=== PATIENT | female | born 1950 | race African-American/Black ===

== ENCOUNTER 2019-04-08 21:31 | Inpatient (IN) | payer OTHER ==
[~2019-04-08] VITALS: Ht 157.5 cm; Wt 144.2 kg
[2019-04-08 21:32] VITALS: BP 131/59
[2019-04-08 22:32] LABS: URINE BILIRUBIN NEGATIVE (Negative); URINE BLOOD 2+ (Negative); URINE CLARITY CLEAR; URINE COLOR YELLOW; URINE GLUCOSE-RANDOM* NEGATIVE (Negative); URINE KETONES NEGATIVE (Negative); URINE LEUKOCYTES-REFLEX NEGATIVE (Negative); URINE NITRITE-REFLEX NEGATIVE (Negative); URINE PROTEIN (DIPSTICK) 3+ (Negative); URINE SPECIFIC GRAVITY 1.025 (1.005-1.035); URINE UROBILINOGEN 0.2 E.U./dl (0.2-1.0)
[2019-04-08 22:37] LABS: ABSOLUTE NEUTROPHILS 5.7 thou/uL (1.4-8.2); BASOPHILS 0.3 % (0.0-2.0); HEMATOCRIT 28.3 % (37.0-47.0); HEMOGLOBIN 9.2 gm/dL (12.0-15.0); LYMPHOCYTES 14.5 % (24.0-44.0); MCH 28.2 pg (26.0-34.0); MCHC 32.6 g/dL (28.0-37.0); MCV 86.6 fL (80.0-100.0); MONOCYTES 7.2 % (1.0-8.0); PLATELET COUNT 228 thou/uL (150-400); RBC 3.26 mil/uL (4.20-5.00); RDW 19.1 % (10.5-14.5); WBC 7.5 thou/uL (4.0-11.0)
[2019-04-08 22:43] LABS: CALCIUM 8.4 mg/dL (8.5-10.1); CREATININE 1.4 mg/dL (0.6-1.0); POTASSIUM 3.8 mmol/L (3.5-5.1)
[2019-04-08 22:49] LABS: AMORPHOUS URATES Many /LPF (None Seen); BACTERIA-REFLEX None Seen /HPF (None Seen); CASTS None Seen /LPF (None Seen); CRYSTALS None Seen /LPF (None Seen); MUCUS 0-3 Light strn/LPF (None Seen); SQUAMOUS 4-10 Moderate /LPF (0-3); URINE RBC 3-10 Few /HPF (0-2); URINE WBC-REFLEX None Seen /HPF (0-5)
[2019-04-08 22:55] LABS: MAGNESIUM 1.9 mg/dL (1.8-2.4); TROPONIN-I 0.07 ng/mL (<0.06)
[2019-04-09] VITALS (7 sets, daily range): BP systolic 141–175; BP diastolic 56–106
[2019-04-09 00:03] LABS: INR 1.7; PROTIME 18.1 Seconds (9.3-11.4)
--- NOTE | 2019-04-09 03:13 | NUR ---
PT NEW ADMIT . ARRIVED ON UNIT ABOUT 0030. ALERT AND ORIENTED, BUT LETHARGIC IN COMPANY OF . PT UNABLE TO GIVE DETAILS OF WHICH MEDICATIONS SHE IS ON. REPORTS TO BE CURRENTLY LIVING AT A HOTEL WITH THE AND FEELS SAFE. C/O HEADACHE , TYLANOL X1 GIVEN. DENIES ANY PROBLEM WITH ACCESS TO MEDICATIONS. DENIES NAUSEA, VOMITNG OR DIARRHEA. NO CHEST PAIN. VOIDING PER THE EXTERNAL FEMALE CATHETER. PT CURRENTLY STABLE. WILL CONTINUE TO FOLLOW PLAN OF CARE.
[2019-04-09 04:23] LABS: INR 1.7; PROTIME 17.3 Seconds (9.3-11.4)
[2019-04-09 04:32] LABS: ANION GAP 4 mmol/L (7-16); BUN 23 mg/dL (7-18); CALCIUM 8.5 mg/dL (8.5-10.1); CHLORIDE 108 mmol/L (98-107); CHOLESTEROL 139 mg/dL (<200); CO2 32 mmol/L (21-32); CREATININE 1.3 mg/dL (0.6-1.0); GLUCOSE 135 mg/dL (74-106); HDL CHOLESTEROL 45 mg/dL (>40); LDL CHOLESTEROL 81 mg/dL (<100); POTASSIUM 3.9 mmol/L (3.5-5.1); SODIUM 144 mmol/L (136-145); TC:HDL 3.1 Ratio (Not establshd); TRIGLYCERIDE 66 mg/dL (<150); TROPONIN-I <0.06 ng/mL (<0.06); VLDL 13 mg/dL (<40)
[2019-04-09 04:34] LABS: SERUM ASSESSMENT Clear
--- NOTE | 2019-04-09 07:41 | EKG ---
[address] [place] [address] ELECTROCARDIOGRAM REPORT Name: CALEB DOVE Room #: 212-P ADM IN M.R.#: [id number] Admission: 04/08/19 Attend Phys: Vini Garcia MD Discharge: Date of : 52 Report #: [id number] THIS REPORT FOR: //name// [facility] ED Test Date: 2019-04-08 Test Time: 22:21:08 Pat Name: CALEB DOVE Department: Room: [facility] Gender: F Assistant To The Dean: PIPPA : 1950 Requested By: Bhavik Givens Order Number: [id number] MD: Addi Flanagan Measurements Intervals [place] Rate: 67 P: -43 UT: 257 QRS: -12 QRSD: 94 T: 48 QT: 406 QTc: 429 Interpretive Statements Sinus rhythm Prolonged UT interval Baseline wander in lead(s) V1 No previous ECG available for comparison Electronically Signed On 04-09-2019 7:41:09 CDT by Addi Flanagan [email or web address] <ELECTRONICALLY SIGNED> By: Addi Flanagan MD, [facility] 04/09/19 0741 20 20 Addi Flanagan MD, [facility] /EPI
--- NOTE | 2019-04-09 08:06 | NUR ---
RESTING QUIETLY, EASILY AWAKENED. DENIES DISCOMFORT. SR WITH FIRST DEGREE AV BLOCK. RUBEN LOWER EXTREMITIES VERY WEAK WITH PT BARELY ABLE TO LIFT KNEES OFF OF BED.
--- NOTE | 2019-04-09 10:43 | NUR ---
met with patient who is A/Ox4. She resides currently in hotel with spouse. Spouse cont to work and drive. patient resides in hotel for approx 3 weeks. She was living in [facility] but had steps to apt in which she could no longer tolerate. She reports her lease was up and now staying in hotel awaiting her section 8 to find ground floor apt which she anticipates will be soon. Patient has her home oxygen concentrator and CPAP at [facility]. Provider is [facility] at 3 liters. She was having loose stools and unable to get off commode. EMS called and patient fell with them assisting her off commode. She has a walker, cane and wc and uses walker in hotel. PCP Dr Barry Arguelles at [facility]. Patient reports she has been at [facility] in past and prefers to transition to [facility]. Plan to send therapy evals and request [facility] eval.
[2019-04-09] MEDS ORDERED: TRADJENTA5 MG PO (14:07)
[2019-04-09] MEDS ORDERED: LYRICA100 MG PO (14:07)
[2019-04-09] MEDS ORDERED: NORVASC 2.5 MG2.5 M1 PO (14:07)
[2019-04-09] MEDS ORDERED: TOPROL XL50 MG PO (14:08)
[2019-04-09] MEDS ORDERED: GLIPIZIDE 10 MG10 MG PO (14:08)
[2019-04-09] MEDS ORDERED: NORCO 5-325 TA1 EAC1 PO (14:09)
[2019-04-09] MEDS ORDERED: VOLTAREN GEL 1100 G1 TOP (14:09)
[2019-04-09] MEDS ORDERED: COLACE CLEAR50 MG PO (14:10)
[2019-04-09] MEDS ORDERED: LASIX 40 MG TAB40 MG PO (14:10)
[2019-04-09] MEDS ORDERED: COUMADIN 5 MG TA5 M1 PO (14:11)
[2019-04-09] MEDS ORDERED: LEVEMIR100 UNIT/2 SUBQ (14:11)
--- NOTE | 2019-04-09 15:16 | NUR ---
FAXED REFERRAL TO [facility] SPOKE WITH LEVAR IN ADM SHE RECEIVED REFERRAL AND WILL REVIEW. DP TO FOLLOW.
[2019-04-09] MEDS ORDERED: HYDRALAZINE 10M10 MG PO (15:25)
[2019-04-09] MEDS ORDERED: NYSTATIN 100,0015 G1 TOP (15:29)
[2019-04-09] MEDS ORDERED: TOLTERODINE TART4 MG PO (15:30)
--- NOTE | 2019-04-09 15:41 | NUR ---
[facility] accepting of patient at tn.
--- NOTE | 2019-04-09 16:45 | NUR ---
pt provided home health care by [facility]. contact is Alfreda Hale RN phone # [phone].
--- NOTE | 2019-04-09 18:25 | NUR ---
progressing today. sat on edge of bed x2 with OT, then with PT. sr, 3lit/nc, resp even and unlabored, tolerating diet, female wicking catheter effective. initially tylenol and neurontin given for nerve pain discomfort with minimal relief. hydrocodone administered for increasing discomfort. see assessments/mars for details.
--- NOTE | 2019-04-10 02:58 | NUR ---
PT EXTERNAL CATHETER BECAME DISLOGED AND PT INCON'T OF URINE BED CHANGED AND EXTERNAL CATHETER REPLACED, RT HELPED PT WITH CPAP MACHINE, PRN PAIN MEDS CONTROLLING PAIN, VSS, WILL CON'T TO MONITOR PER PTS PPOC.
[2019-04-10 03:33] VITALS: BP 161/75
[2019-04-10 07:11] LABS: GLYCOHEMOGLOBIN (HGB A1C) 5.9 % (4.8-5.6)
[2019-04-10 07:55] VITALS: BP 179/72
--- NOTE | 2019-04-10 10:54 | NUR ---
[facility] has accepted the pt and has a bed available if dc ready. Care team and pt updated. Possible dc to acute rehab today.
[2019-04-10 12:36] VITALS: BP 184/72
--- NOTE | 2019-04-10 14:39 | NUR ---
FAXED DC ORDERS/SUMMARY TO [facility] SPOKE WITH SHIVAM IN ADM SHE RECEIVED DC ORDERS AND [facility]. [facility] ONLY HAS A SEMI PVT RM AVAILABLE AND WILL TRANSITION PT TO A PVT RM ONCE AVAILABLE PT IS AWARE OF THIS AND SHE WILL NOTIFY HER FAMILY OF DC AND TIME OF TRANSPORT. UNIT NOTIFIED AND CHART COPY PER US. RN TO CALL REPORT TO [phone].
[2019-04-10 16:05] VITALS: BP 171/63
--- NOTE | 2019-04-10 18:52 | NUR ---
ASSUME CARE OF PT AT 1500. ASSESSMENT CHARTED. MEDS GIVEN PER MAR. CPAP USED AT BEDTIME. EXTERNAL FEMALE CATHETER IN PLACE. DC ORDERS COMPLETE. IV AND TELE DC'D. WAITING FOR [facility] STRETCH[facility]AN TO TRANSPORT TO FACILITY. WILL CONTINUE TO MONITOR AND FOLLOW POC.
== END 2019-04-10 19:35 | DRG 554 ==
LOC: ER 21:31 → 2N 23:50 → EROBS 23:50 → 2N 04-09 00:45
PROVIDERS: Emergency Medicine; Nurse Practitioner Family; ADMIT Hospitalist
PROC: 5A09357 Assistance with Respiratory Ventilation, Less than 24 Consecutive Hours, Continuous Positive Airway Pressure (ICD-10-PCS; principal; 2019-04-10)
DX: M19.90 Unspecified osteoarthritis, unspecified site (principal); N17.9 Acute kidney failure, unspecified; Z68.43 Body mass index [BMI] 50.0-59.9, adult; I48.91 Unspecified atrial fibrillation; G89.29 Other chronic pain; M79.669 Pain in unspecified lower leg; E78.5 Hyperlipidemia, unspecified; G47.33 Obstructive sleep apnea (adult) (pediatric); E66.01 Morbid (severe) obesity due to excess calories; J44.9 Chronic obstructive pulmonary disease, unspecified; I11.0 Hypertensive heart disease with heart failure; I50.9 Heart failure, unspecified; E11.42 Type 2 diabetes mellitus with diabetic polyneuropathy; R29.6 Repeated falls; E11.649 Type 2 diabetes mellitus with hypoglycemia without coma; Z82.49 Family history of ischemic heart disease and other diseases of the circulatory system; Z83.3 Family history of diabetes mellitus; Z88.8 Allergy status to other drugs, medicaments and biological substances; Z99.3 Dependence on wheelchair
CPT/HCPCS: 10081

== ENCOUNTER 2019-04-16 13:46 | Inpatient (IN) | payer OTHER ==
[~2019-04-16] VITALS: Ht 157.5 cm; Wt 137.1 kg
[2019-04-16 13:46] VITALS: BP 99/78
[~2019-04-16 13:46] MED LIST: COLACE CLEAR50 MG PO; COUMADIN 5 MG TA5 M1 PO; GLIPIZIDE 10 MG10 MG PO; HYDRALAZINE 10M10 MG PO; LASIX 40 MG TAB40 MG PO; LEVEMIR100 UNIT/2 SUBQ; LYRICA100 MG PO; NORCO 5-325 TA1 EAC1 PO; NORVASC 2.5 MG2.5 M1 PO; NYSTATIN 100,0015 G1 TOP; TOLTERODINE TART4 MG PO; TOPROL XL50 MG PO; TRADJENTA5 MG PO; VOLTAREN GEL 1100 G1 TOP
[2019-04-16 14:45] LABS: ABSOLUTE NEUTROPHILS 8.3 thou/uL (1.4-8.2); BASOPHILS 0.3 % (0.0-2.0); EOSINOPHILS 0.1 % (0.0-3.0); HEMATOCRIT 24.2 % (37.0-47.0); HEMOGLOBIN 7.8 gm/dL (12.0-15.0); LYMPHOCYTES 11.8 % (24.0-44.0); MCH 28.2 pg (26.0-34.0); MCHC 32.3 g/dL (28.0-37.0); MCV 87.5 fL (80.0-100.0); MONOCYTES 8.9 % (1.0-8.0); PLATELET COUNT 258 thou/uL (150-400); POLYS 78.9 % (36.0-66.0); RBC 2.76 mil/uL (4.20-5.00); RDW 18.4 % (10.5-14.5); WBC 10.5 thou/uL (4.0-11.0)
[2019-04-16 14:47] LABS: CREATININE 1.3 mg/dL (0.6-1.0); POTASSIUM 3.9 mmol/L (3.5-5.1)
[2019-04-16 14:59] LABS: APTT 64.1 Seconds (24.5-32.8); INR 2.5; PROTIME 26.4 Seconds (9.3-11.4)
[2019-04-16 15:36] LABS: ANISOCYTOSIS 1+; PLATELET ESTIMATE NORMAL
[2019-04-16 22:00] VITALS: BP 185/66
[2019-04-16 22:40] VITALS: BP 170/53
[2019-04-16 23:24] VITALS: BP 183/64
[2019-04-17] MEDS ORDERED: GLIPIZIDE 10 MG10 MG PO ×2 (01:25→02:36)
[2019-04-17] MEDS ORDERED: COZAAR 25 MG TA25 M1 PO (01:25)
[2019-04-17] MEDS ORDERED: LIDODERM1 EACH TRANSDERM (01:58)
[2019-04-17] MEDS ORDERED: DOCUSATE SODIU1 EACH PO (01:59)
[2019-04-17] MEDS ORDERED: HYDRALAZINE 2525 M1 PO (02:34)
[2019-04-17 02:35] LABS: HEMATOCRIT 19.5 % (37.0-47.0); HEMOGLOBIN 6.4 gm/dL (12.0-15.0)
[2019-04-17 03:48] VITALS: BP 171/54
[2019-04-17 04:02] VITALS: BP 162/68; BP 167/66
--- NOTE | 2019-04-17 05:53 | NUR ---
PT ARRIVED ON THE UNIT @2300 FROM ER. A&OX4 WITH C/O PAIN IN RT THIGH. PAIN MEDS GIVEN SEE EMAR. ON 3L OF O2. ADM DOCUMENTED AND PT ORIENTED TO THE ROOM. @0235 CRITICAL HGB OF 6.4 NOTIFIED ONCALL KETTLE ROOM HELPER AND ORDER PLACED FOR 1 UNIT OF BLOOD. CONSENT SIGNED AND PT INFORMED. HYDRALAZINE GIVEN FOR HIGH BP PER DR DO. FALL PREC IN PLACE AND WILL CONT TO MONITOR TILL EOS
[2019-04-17 06:55] LABS: HEMATOCRIT 21.8 % (37.0-47.0); HEMOGLOBIN 7.1 gm/dL (12.0-15.0)
[2019-04-17 07:06] LABS: INR 2.4; PROTIME 24.8 Seconds (9.3-11.4)
[2019-04-17 07:20] VITALS: BP 141/47
--- NOTE | 2019-04-17 16:03 | NUR ---
INITIAL ASSESSMENT: Pt evalulated for d/c planning needs. Reviewed chart and spoke with nurse an dpt. Pt is alert and oriented. Pt was hospitalized at [facility] and discharged to [facility] on 04/10/19. Prior to previous hospitalization, pt was living in [facility] with SO. Pt has walker, cane, w/c, CPAP and oxygen ([employer]) at home. Pt is hopeful to return to [facility] on d/c from hospital. Asked city planner to fax referral to [facility]. Will remain available to assist as needed,
--- NOTE | 2019-04-17 16:35 | NUR ---
FAXED REFERRAL TO [facility] SPOKE WITH LEVAR IN ADM SHE RECEIVED AND WILL REVIEW. 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 WAITING FOR NEW PT/OT NOTES WILL FAX TO [facility] ONCE AVAILABLE. DP TO FOLLOW.
[2019-04-17 21:03] VITALS: BP 147/53
--- NOTE | 2019-04-17 21:06 | NUR ---
PATIENT ALER AND ORIENTED AND RESTING COMFORTABLY. FAMILY AT BEDSIDE THIS AFTERNOON. PATIENT PAIN IN RIGHT THIGH MANAGED BY ORAL PAIN MED. PATIENT USES BEDPAN AND INDICATED SHE DIDN'T WANT TO GET UP TO BEDSIDE COMMODE DUE TO RIGHT LEG PAIN.
[2019-04-18 03:45] LABS: MCH 28.4 pg (26.0-34.0); MCHC 32.4 g/dL (28.0-37.0); MCV 87.7 fL (80.0-100.0); RBC 2.12 mil/uL (4.20-5.00); RDW 17.7 % (10.5-14.5); WBC 11.7 thou/uL (4.0-11.0)
[2019-04-18 03:51] LABS: CALCIUM 8.4 mg/dL (8.5-10.1); CREATININE 1.4 mg/dL (0.6-1.0); POTASSIUM 4.5 mmol/L (3.5-5.1)
[2019-04-18 04:26] LABS: HEMATOCRIT 18.6 % (37.0-47.0)
[2019-04-18 04:51] LABS: INR 1.6; PROTIME 17.1 Seconds (9.3-11.4)
--- NOTE | 2019-04-18 04:58 | NUR ---
ASSUMED CARE AROUND 1900. AXOX3. PERSISTENT PAIN ON R THIGH. MEDICATED PER MD ORDER. NOC TITRATING BIPAP, MANAGED BY RT. CRITICAL H&H REPORTED TO EGG PRODUCER UNDERWRITING TECHNICIAN FOR . EGG PRODUCER WILL ORDER 1 UNIT OF BLOOD. DENIES CHEST PAIN,SOA,CHILLS,NAUSEA,VOMITING. WILL CONT TO MONITOR FOR ANY CHANGES IN CONDITION.
[2019-04-18 05:22] VITALS: BP 140/53
[2019-04-18 05:37] LABS: % SATURATION 9 % (20-39); IRON 15 ug/dL (50-170); TIBC 172 ug/dL (250-450)
[2019-04-18 08:38] VITALS: BP 130/62; BP 132/52; BP 135/78
--- NOTE | 2019-04-18 12:47 | NUR ---
Nutrition: Assessed d/t BMI > 40 (55.3 kg/m2; morbid obesity, class III - high risk). Admit: R thigh hematoma. Nutrition education deferred at this time d/t pt condition. Per chart notes, having pain so severe contributing to severe debility, interfering w/ therapy. Noted to be wheelchair bound and renal mass concerning for CA. Wt loss education not deemed appropriate at this time. On a heart healthy diet and ate 100% of all 3 meals yesterday. Low nutrition risk at present.
[2019-04-18 13:54] LABS: HEMOGLOBIN 7.1 gm/dL (12.0-15.0)
--- NOTE | 2019-04-18 17:57 | NUR ---
ASSUMED CARE OF PT AT 0700. PT IS ON 4.0L OF O2. PT UNABLE TO AMBULATE BY HERSELF. BLOOD TRANSFUSION GIVEN AND 300L OF BLOOD TRANSFUSED AND VITAL SIGNS ASSESSED. BS CONTROL WITH INSULIN ON A SLIDING SCALE. HEMOGLOBIN REDRAWN AFTER BLOOD TRANSFUSION AND PT HAS A 7.0, NO NEED FOR ANOTHER TRANSFUSION AT THIS TIME. FALL PRECAUTIONS IN PLACE AND PT EDUCATED. BED IN LOWEST POSITION AND CALL LIGHT WITHIN REACH. WILL CONTINUE TO MONITOR THE PT.
[2019-04-18 19:20] VITALS: BP 140/59
--- NOTE | 2019-04-19 04:05 | NUR ---
PATIENT ALERT AND ORIENTED X 4. FAMILY AT BEDSIDE IN LATE EVENING. PATIENT C/O PAIN THIGH AREA. 3LNC WITH NO SOA NOTED AND PATIENT REMAINS ON BEDREST. WILL CONTINUE TO MONITOR.
[2019-04-19 04:45] VITALS: BP 134/52
[2019-04-19 06:08] LABS: HEMOGLOBIN 6.6 gm/dL (12.0-15.0)
[2019-04-19 06:10] LABS: HEMATOCRIT 20.1 % (37.0-47.0); MCH 28.5 pg (26.0-34.0); MCHC 32.7 g/dL (28.0-37.0); MCV 87.2 fL (80.0-100.0); RBC 2.31 mil/uL (4.20-5.00); RDW 18.3 % (10.5-14.5)
[2019-04-19 06:12] LABS: CALCIUM 8.5 mg/dL (8.5-10.1); CREATININE 1.5 mg/dL (0.6-1.0); POTASSIUM 4.6 mmol/L (3.5-5.1)
[2019-04-19 06:15] LABS: PROTIME 10.9 Seconds (9.3-11.4)
[2019-04-19 08:00] VITALS: BP 167/63
--- NOTE | 2019-04-19 09:58 | NUR ---
PT REPORTS GETTING A 3RD TRANSFUSION TODAY. PT VERY DISCOURAGED ABOUT THE LEVEL OF PAIN IN HER RIGHT LEG, WHICH SHE REPORTS IS MOVING CLOSER TOWARDS HIP. PT STATED SHE IS UNABLE TO GET UP AGAIN FOR OT EVAL. OT WILL RETURN 04/21/19
[2019-04-19 10:46] VITALS: BP 140/67; BP 153/53
[2019-04-19 16:29] VITALS: BP 139/58
[2019-04-19 17:00] LABS: HEMATOCRIT 21.6 % (37.0-47.0)
--- NOTE | 2019-04-19 18:00 | NUR ---
Assumed care of pt at 0700. Pt has epidose of confusion in am possibly due to dilaudid. Provider aware. Pt hg 6.6 with am labs. Provider notified. 1 unit blood ordered and administered. H&H ordered after blood is infused. Awaiting results. Pain controlled with prn pain meds. Q2h reposition. Pt uses bedpan. Able to roll on her side. 3L O2. Call light within reach.
[2019-04-19 19:36] VITALS: BP 136/50
[2019-04-20 02:20] VITALS: BP 137/57
--- NOTE | 2019-04-20 03:10 | NUR ---
PATIENT ALERT AND ORIENTED X4. REMAINS ON BEDREST AND USING BEDPAN. BS MONITORED PER ORDER. MEDICATED FOR LOW GRADE TEMP OF 99.5 WHICH DECREASED TO 98.9. GIVEN VICODIN FOR PAIN WITH GOOD RESULTS. USING BIPAP DURING THE NIGHT. RESTING QUIETLY. WILL MONITOR.
--- NOTE | 2019-04-20 03:13 | NUR ---
URINE SAMPLE SENT TO LAB DURING THE NGIHT.
[2019-04-20 06:20] LABS: HEMATOCRIT 20.6 % (37.0-47.0); HEMOGLOBIN 6.8 gm/dL (12.0-15.0)
--- NOTE | 2019-04-20 06:20 | NUR ---
PATIENT SLOW TO AWAKEN THIS AM FOR MORNING MEDS. THIS NURSE TOOK HER OFF OF THE BIPAP PER HER REQUEST. BLOOD SUGAR TAKEN (88) AT 0515. PATIENT DENIED PAIN AND REFUSED MEDICATION STATING "DO YOU JUST WANT ME TO HAVE SOME PAIN?". THIS NURSE EXPLAINED THAT SHE DID NOT WANT THE PATIENT TO FALL IN "THE CRACK" OF SHIFT CHANGE WHEN THERE COULD BE A DELAY OF ADMINISTERING PAIN MEDS. PLACED ON BEDPAN WITH CALL LIGHT IN REACH.
[2019-04-20 06:57] LABS: PROTIME 10.3 Seconds (9.3-11.4)
[2019-04-20 09:08] VITALS: BP 148/55
[2019-04-20 12:26] VITALS: BP 124/57; BP 136/55
--- NOTE | 2019-04-20 14:50 | NUR ---
PT ALERT AND ORIENTED TIMES FOUR. VSS, 97%2L. PT C/O LEG PAIN PRN MEDICATIONS GIVEN WITH GOOD RELEIF. ONE UNIT OF BLOOD GIVEN WITH NO ISSUES. PT TOLERATES MEDS AND MEALS. PT FAMILY AT BEDSIDE. PT SLOWLY PROGRESSING [facility] P[facility] GOALS.
[2019-04-20 16:36] LABS: ABSOLUTE NEUTROPHILS 8.1 thou/uL (1.4-8.2); BASOPHILS 0.5 % (0.0-2.0); EOSINOPHILS 1.7 % (0.0-3.0); HEMATOCRIT 23.4 % (37.0-47.0); HEMOGLOBIN 7.9 gm/dL (12.0-15.0); LYMPHOCYTES 10.9 % (24.0-44.0); MCH 29.5 pg (26.0-34.0); MCHC 33.7 g/dL (28.0-37.0); MCV 87.5 fL (80.0-100.0); MONOCYTES 10.1 % (1.0-8.0); PLATELET COUNT 229 thou/uL (150-400); POLYS 76.8 % (36.0-66.0); RBC 2.67 mil/uL (4.20-5.00); RDW 17.4 % (10.5-14.5); WBC 10.5 thou/uL (4.0-11.0)
[2019-04-20 16:54] LABS: ALBUMIN 1.8 g/dL (3.4-5.0); CALCIUM 8.7 mg/dL (8.5-10.1); CREATININE 1.5 mg/dL (0.6-1.0); MAGNESIUM 2.3 mg/dL (1.8-2.4); POTASSIUM 4.6 mmol/L (3.5-5.1); TOTAL BILIRUBIN 0.5 mg/dL (<0.1-1.0); TOTAL PROTEIN 6.6 g/dL (6.4-8.2)
[2019-04-20 16:56] LABS: URIC ACID* 8.9 mg/dL (2.6-7.2)
[2019-04-20 18:42] VITALS: BP 123/63
[2019-04-20 21:04] VITALS: BP 130/58
--- NOTE | 2019-04-21 00:30 | NUR ---
PATIENTS CALLED OUT FOR THE NURSE AT APPROX. 2250. THIS NURSE FOUND PATIENT CONFUSED - BS 74 AND 02SAT 86 ON 3LNC. CONTACTED PASTE UP WORKER (NATHAN) AND RECEIVED ORDER FOR STAT CT OF THE HEAD. PATIENT TAKEN DOWN AND RECEIVED CT AT 2325 WITH RETURN TO THE FLOOR AT 2335. NIGHT SUPV. (LORNE) RECEIVED ORDER FROM PASTE UP WORKER FOR NARCAN IV DUE TO CONTINUED CONFUSION. THIS WAS GIVEN X2 AND PATIENT IS ALERT AND ORIENTED AT THIS TIME. RT PUT PATIENT ON BIPAP AND REQUESTED HER HOME MACHINE BE USED AND IS ON IT AT THIS TIME. RESTING QUIETLY. WILL MONITOR.
[2019-04-21 01:49] LABS: URINE BILIRUBIN NEGATIVE (Negative); URINE BLOOD TRACE (Negative); URINE CLARITY CLEAR; URINE COLOR YELLOW; URINE GLUCOSE-RANDOM* NEGATIVE (Negative); URINE KETONES NEGATIVE (Negative); URINE LEUKOCYTES NEGATIVE (Negative); URINE NITRITE NEGATIVE (Negative); URINE PROTEIN (DIPSTICK) 2+ (Negative); URINE SPECIFIC GRAVITY 1.025 (1.005-1.035); URINE UROBILINOGEN 0.2 E.U./dl (0.2-1.0)
[2019-04-21 02:00] LABS: CASTS None Seen /LPF (None Seen); MUCUS 0-3 Light strn/LPF (None Seen); SQUAMOUS 0-3 Few /LPF (0-3); URINE WBC None Seen /HPF (0-5)
[2019-04-21 02:01] LABS: BACTERIA 1-9 Few /HPF (None Seen); CRYSTALS None Seen /LPF (None Seen); URINE RBC 0-2 Rare /HPF (0-2)
--- NOTE | 2019-04-21 04:27 | NUR ---
RT CHANGED PATIENT FROM HOSPITAL BIPAP TO HER HOME BIPAP AND SHE IS SATING AT 93-96%. NO FURTHER EPISODES OF CONFUSION. URINE SAMPLE SENT TO LAB. FAX OF RESULTS FROM CT OF HEAD ON CHART AND RESULTS CALLED TO WEAVING INSTRUCTOR. WILL MONITOR.
[2019-04-21 05:44] VITALS: BP 142/60
[2019-04-21 06:52] LABS: PROTIME 9.5 Seconds (9.3-11.4)
[2019-04-21 07:03] VITALS: BP 133/55
[2019-04-21 15:31] LABS: HEMATOCRIT 24.7 % (37.0-47.0); MCH 28.7 pg (26.0-34.0); MCHC 32.5 g/dL (28.0-37.0); MCV 88.3 fL (80.0-100.0); RBC 2.8 mil/uL (4.20-5.00); RDW 17.5 % (10.5-14.5); WBC 9.7 thou/uL (4.0-11.0)
[2019-04-21 15:49] LABS: CALCIUM 9.3 mg/dL (8.5-10.1); CREATININE 1.3 mg/dL (0.6-1.0); POTASSIUM 4.5 mmol/L (3.5-5.1)
--- NOTE | 2019-04-21 17:29 | NUR ---
PT ASSESSED AT START OF SHIFT. TURNED Q2HRS W/ ASSIST. PT MOVES FAIRLY WELL IN BED. TRIED STANDING W/ THERAPY. RT KNEE AND THIGH PAIN HELPED W/ MEDS. EATING AND DRINKING WELL. CONTINENT W/ BEDPAN. HGB STABILIZED.
--- NOTE | 2019-04-21 17:32 | NUR ---
Received telephone call from admissions liaison at [facility]. Pt has been clinically accepted and they are able to accept today if pt is medically ready for d/c. Notified physician.
[2019-04-21 20:40] VITALS: BP 141/62
--- NOTE | 2019-04-22 02:51 | NUR ---
ASSUMED PT CARE ON 04/21/19 AT 1930. PT HAS C/O PAIN ON THE RIGHT LEGT (THIGH AND KNEE). VOLTAREN GEL WAS APPLIED AND TYLENOL WAS GIVEN. SCHEDULED MEDS WERE GIVEN. PT SAID THAT THERE WAS SOME RELIEF. ADMINISTERED HYDROCODONE. Q2 TURN DONE WHEN NECESSARY. PT TURNS WELL IN THE BED WHEN USING THE BEDPAN. PT WAS ASLEEP WHEN I TRIED TO RE EVALUATE THE PAIN LEVEL. PT STATED THAT HER KNEE WAS HURTING BECAUSE SHE HIT HER KNEE DURING THE DAY AND THAT IS WHERE A LOT OF HER PAIN WAS COMING FROM. WILL CONTINUE TO MONITOR.
[2019-04-22 05:49] VITALS: BP 158/70
[2019-04-22 07:33] VITALS: BP 179/71
--- NOTE | 2019-04-22 10:10 | 2DMMODE ---
[facility] [address] [place] [address] 2 D/M-MODE ECHOCARDIOGRAM Name: CALEB DOVE Room #: 437-P [facility] IN ..#: [id number] Admission: 04/16/19 Attend Phys: Román Payton MD Discharge: Date of : 52 Report #: [id number] THIS REPORT FOR: //name// APPROVED REPORT Study performed: 04/22/2019 07:58:50 EXAM: Comprehensive 2D, Doppler, and color-flow Echocardiogram Patient Location: In-Patient Room #: 437 Status: routine BSA: 2.28 HR: 85 bpm BP: 179/71 mmHg Rhythm: Irregular Other Information Study Quality: Adequate Technically limited study due to body habitus. Indications Diabetes Atrial Fibrillation Cardiomegaly 2D Dimensions RVDd: 31.65 mm IVSd: 13.33 (7-11mm) LVOT Diam: 19.62 (18-24mm) LVDd: 39.42 mm PWd: 16.33 (7-11mm) Ascending Ao: 36.07 (22-36mm) LVDs: 24.11 (25-40mm) Aortic Root: 28.98 mm IVC: 2.20 mm Volumes Left Atrial Volume (Systole) Single Plane 4CH: 106.79 mL Single Plane 2CH: 75.97 mL LA ESV Index: 45.00 mL/m2 Aortic Valve AoV Peak Eyal.: 2.40 m/s AO Peak Gr.: 23.00 mmHg LVOT Max P.91 mmHg AO Mean Gr.: 10.03 mmHg LVOT Mean P.90 mmHg AO V2 Mean: 1.41 m/s LVOT Max V: 1.41 m/s AO V2 VTI: 46.20 cm LVOT Mean V: 0.91 m/s [facility] [place] [address] 2 D/M-MODE ECHOCARDIOGRAM Name: PETTYCALEB Room #: 437-P [facility] IN M.R.#: [id number] Admission: 04/16/19 Attend Phys: Román Payton MD Discharge: Date of : 51 Report #: [id number] EVANGELINA (VTI): 1.93 cm2 LVOT V1 VTI: 29.48 cm EVANGELINA Vmax: 1.77 cm2 SV (LVOT): 89.06 mL Mitral Valve E/A Ratio: 1.3 MV Decel. Time: 217.15 ms MV E Max Eyal.: 1.49 m/s MV A Eyal.: 1.15 m/s MV PHT: 62.97 ms IVRT: 41.52 ms Pulmonary Valve PV Peak Eyal.: 1.71 m/s PV Peak Gr.: 11.72 mmHg Pulmonary Vein P Vein S: 0.55 m/s P Vein A: 0.41 m/s P Vein D: 0.84 m/s P Vein A Dur.: 133.8 msec P Vein S/D Ratio: 0.65 Tricuspid Valve TR Peak Eyal.: 4.16 m/s RAP Estimate: 10.00 mmHg TR Peak Gr.: 69.11 mmHg PA Pressure: 79.00 mmHg Left Ventricle The left ventricle is normal size. There is normal LV segmental wall motion. Mild to moderate concentric left ventricular hypertrophy. Left ventricular systolic function is hyperdynamic. LVEF is 70%. The left ventricular diastolic function is normal. Right Ventricle The right ventricle is normal size. The right ventricular systolic function is normal. Atria Left atrium is moderately dilated. Right atrium is dilated. Aortic Valve The aortic valve is mildly sclerotic No aortic regurgitation is present. There is no aortic valvular stenosis. Mitral Valve Mild mitral annular calcification Trace mitral regurgitation. No evidence of mitral valve stenosis. [facility] [address] [place] [address] 2 D/M-MODE ECHOCARDIOGRAM Name: CALEB DOVE Room #: 437-P [facility] IN [facility]#: [id number] Admission: 04/16/19 Attend Phys: Román Payton MD Discharge: Date of : 52 Report #: [id number] Tricuspid Valve The tricuspid valve is normal in structure. Mild to moderate tricuspid regurgitation. Estimated PAP is 80mmHg. Pulmonic Valve The pulmonary valve is normal in structure. Trace pulmonic regurgitation. Great Vessels The aortic root is normal in size. The ascending aorta is normal in size. IVC is normal in size and collapses <50% with inspiration. Pericardium There is no pericardial effusion. <Conclusion> Left ventricular systolic function is hyperdynamic. There is normal LV segmental wall motion. LVEF is 70%. Normal diastolic function The aortic valve is mildly sclerotic. No aortic regurgitation or stenosis. Mild mitral annular calcification. Trace mitral regurgitation. Mild to moderate tricuspid regurgitation. Estimated pulmonary artery pressure of 80mmHg. There is no pericardial effusion. <ELECTRONICALLY SIGNED> By: Addi Flanagan MD, FACC 04/22/19 1009 100 100 Addi Flanagan MD, FACC /INF
[2019-04-22] MEDS ORDERED: LASIX 40 MG TAB40 MG PO (11:33)
[2019-04-22 13:09] VITALS: BP 159/56
--- NOTE | 2019-04-22 14:17 | NUR ---
Received awake on bed. Due medications given as prescribed, able to swallow meds w/o difficulty. A+Ox4. On O2 at 3lpm via nasal cannula. On blood sugar monitoring- taken and recorded accordingly; with insulin sliding scale prescribed. Using bipap at night. Still a/w occult blood- no specimen yet. With SL at R hand- intact and flushing well. Nystatin powder applied to skin folds. Assisted in ADLs. Turned to sides regularly. Vital signs stable- with elevated BP noted, Bp meds given- rechecked BP and WNL. Able to use bedpan to pass urine. For possible discharge today- CM aware. Pt seen by Dr Garcia- discharge orders made; a/w CM advise re: transport time.
--- NOTE | 2019-04-22 14:52 | NUR ---
PT DISCHARGING TODAY TO [facility] FAXED DC ORDERS/SUMMARY SPOKE WITH LEVAR IN ADM SHE RECEIVED DC ORDERS AND TRANSPORT ARRANGED BY [facility] FOR 1600 TODAY. PT TO NOTIFY FAMILY OF DC AND TIME OF TRANSPORT. UNIT NOTIFIED AND CHART COPY PER US. RN TO CALL REPORT TO [phone].
== END 2019-04-22 16:18 | DRG 555 ==
LOC: ER 13:46 → 4S 22:40
PROVIDERS: Emergency Medicine; Internal Medicine; Nurse Practitioner Acute Care; ADMIT Hospitalist
PROC: 30233N1 Transfusion of Nonautologous Red Blood Cells into Peripheral Vein, Percutaneous Approach (ICD-10-PCS; principal; 2019-04-17)
PROC: 5A09357 Assistance with Respiratory Ventilation, Less than 24 Consecutive Hours, Continuous Positive Airway Pressure (ICD-10-PCS; 2019-04-18)
PROC: 5A09357 Assistance with Respiratory Ventilation, Less than 24 Consecutive Hours, Continuous Positive Airway Pressure (ICD-10-PCS; 2019-04-19)
PROC: 5A09357 Assistance with Respiratory Ventilation, Less than 24 Consecutive Hours, Continuous Positive Airway Pressure (ICD-10-PCS; 2019-04-20)
PROC: 5A09357 Assistance with Respiratory Ventilation, Less than 24 Consecutive Hours, Continuous Positive Airway Pressure (ICD-10-PCS; 2019-04-21)
PROC: 5A09357 Assistance with Respiratory Ventilation, Less than 24 Consecutive Hours, Continuous Positive Airway Pressure (ICD-10-PCS; 2019-04-22)
DX: M79.81 Nontraumatic hematoma of soft tissue (principal); G93.41 Metabolic encephalopathy; I48.20 Chronic atrial fibrillation, unspecified; J96.11 Chronic respiratory failure with hypoxia; D62 Acute posthemorrhagic anemia; Z68.43 Body mass index [BMI] 50.0-59.9, adult; I13.0 Hypertensive heart and chronic kidney disease with heart failure and stage 1 through stage 4 chronic kidney disease, or unspecified chronic kidney disease; I50.9 Heart failure, unspecified; E66.01 Morbid (severe) obesity due to excess calories; M17.0 Bilateral primary osteoarthritis of knee; E78.5 Hyperlipidemia, unspecified; G47.33 Obstructive sleep apnea (adult) (pediatric); E11.42 Type 2 diabetes mellitus with diabetic polyneuropathy; J44.9 Chronic obstructive pulmonary disease, unspecified; N18.3 Chronic kidney disease, stage 3 (moderate); E11.22 Type 2 diabetes mellitus with diabetic chronic kidney disease; Z79.01 Long term (current) use of anticoagulants; Z88.8 Allergy status to other drugs, medicaments and biological substances; Z91.018 Allergy to other foods; Y92.89 Other specified places as the place of occurrence of the external cause; Z90.710 Acquired absence of both cervix and uterus; Z82.49 Family history of ischemic heart disease and other diseases of the circulatory system; Z83.3 Family history of diabetes mellitus; D64.9 Anemia, unspecified; T45.515A Adverse effect of anticoagulants, initial encounter
CPT/HCPCS: 10195

== ENCOUNTER 2019-05-16 20:04 | Emergency (ER) | payer OTHER ==
[~2019-05-16] VITALS: Ht 157.5 cm; Wt 130.2 kg
[~2019-05-16 20:04] MED LIST changes: +COZAAR 25 MG TA25 M1 PO; +DOCUSATE SODIU1 EACH PO; +HYDRALAZINE 2525 M1 PO; +LIDODERM1 EACH TRANSDERM
[2019-05-16 21:14] VITALS: BP 153/53
== END 2019-05-16 21:15 | disposition home or self-care (01) ==
LOC: ER 20:04
DX: S83.8X1A Sprain of other specified parts of right knee, initial encounter (principal); E11.22 Type 2 diabetes mellitus with diabetic chronic kidney disease; I12.9 Hypertensive chronic kidney disease with stage 1 through stage 4 chronic kidney disease, or unspecified chronic kidney disease; N18.3 Chronic kidney disease, stage 3 (moderate); J44.9 Chronic obstructive pulmonary disease, unspecified; I48.91 Unspecified atrial fibrillation; E11.40 Type 2 diabetes mellitus with diabetic neuropathy, unspecified; Z90.710 Acquired absence of both cervix and uterus; Z91.018 Allergy to other foods; Z88.8 Allergy status to other drugs, medicaments and biological substances; W18.39XA Other fall on same level, initial encounter; Y92.002 Bathroom of unspecified non-institutional (private) residence as the place of occurrence of the external cause; Y93.89 Activity, other specified; Y99.8 Other external cause status

== ENCOUNTER 2021-05-31 11:11 | Inpatient (IN) | payer OTHER ==
[~2021-05-31] VITALS: Ht 157.5 cm; Wt 117.0 kg
[2021-05-31] VITALS (31 sets, daily range): BP systolic 102–163; BP diastolic 47–94
--- NOTE | ~2021-05-31 | EMS ---
[facility] [address] [place] [address] EMS Patient Care Report Name: CALEB DOVE Room #: PRE M.R.#: [id number] Admission: Attend Phys: Discharge: Date of : 52 Report #: [id number] THIS REPORT FOR: //name// Report Transmitted: 05/31/2021 10:40 EMS Care Summary [place], [place]/[facility] Incident [id number] @ 05/31/2021 10:35 Incident Location [address] Patient CALEB DOVE Female, 70 Years 1950 [facility] [place] [address] Patient History Chronic Obstructive Pulmonary Disease (COPD),Hypokalemia, Patient Allergies No known allergies, Patient Medications Albuterol, Amlodipine, Chief Complaint TESTED POSITIVE FOR COVID Disposition Transported No Lights/[place] Dispatch Reason Sick Person Transported To [facility] Narrative M42 WAS DISPATCHED FOR A SICK PERSON. UPON ARRIVAL THE PT WAS LAYING IN HER BED. THE STAFF HAD INFORMED FIRE THAT THE PT WAS FOUND TO HAVE A TEMPERATURE OF 101 THIS MORNING WHICH PROMPTED A RAPID COVID TEST. THE TEST CAM BACK POSITIVE. [facility] [address] [place] [address] EMS Patient Care Report Name: CALEB DOVE Room #: [facility] Willa#: [id number] Admission: Attend Phys: Discharge: Date of : 52 Report #: [id number] THE PT HAD NO OTHER NEW COMPLAINTS. THE PT IS NORMALLY ON 3 LITERS OF OXYGEN VIA NASAL CANNULA FOR COPD. THE PT HAD A PRODUCTIVE COUGH THAT SHE SAID WAS NOT SPECIFIC TO THE COVID DIAGNOSIS BUT RATHER "HAD BEEN THERE A WHILE". PT WAS MOVED TO THE AMBULANCE AND TRANSPORTED WHILE BEING MONITORED ENROUTE. THE PT WAS TRANSFERRED TO HOSPITAL STAFF WITH A REPORT. EMS RETURNED TO SERVICE. Initial Vitals @10:55P: 87,R: 18,BP: 151/52,Pain: 0/10,GCS: 15,Temp: 101F,SpO2: 96,Revised Trauma: 12, @10:59P: 75,R: 18,BP: 144/57,Pain: 0/10,GCS: 15,SpO2: 96,Revised Trauma: 12, Assessments @10:49MENTAL:Place Oriented,Event Oriented,Time Oriented,Person Oriented,SKIN:HEENT:Head/Face: No Abnormalities,Eyes: No Abnormalities,Neck/Airway: No Abnormalities,LUNG SOUNDS:General: No Abnormalities,Left Upper: No Abnormalities,Right Upper: No Abnormalities,Left Lower: No Abnormalities,Right Lower: No Abnormalities,ABDOMEN:General: No Abnormalities,Left Upper: No Abnormalities,Right Upper: No Abnormalities,Left Lower: No Abnormalities,Right Lower: No Abnormalities,PELVIS//GI:No Abnormalities,EXTREMITIES:Left Arm: No Abnormalities,Right Arm: No Abnormalities,Left Leg: No Abnormalities,Right Leg: No Abnormalities,PULSE:Radial: 2+ Normal,NEURO:No Abnormalities, Impression COVID-19 - Confirmed by testing Procedures @10:49 ALS Assessment Response: UnchangedSucceeded Timeline 10:34,Call Received 10:34,Dispatch Notified 10:35,Dispatched 10:36,En Route 10:46,On Scene 10:49,At Patient 10:49,ALS Assessment,Response: UnchangedSucceeded, 10:55,BP: 151/52 M,PULSE: 87,RR: 18 R,SPO2: 96 Ox,ETCO2: ,BG: ,PAIN: 0,GCS: 15, 10:56,Depart Scene 10:58,At Destination 10:59,BP: 144/57 M,PULSE: 75,RR: 18 R,SPO2: 96 Ox,ETCO2: ,BG: ,PAIN: 0,GCS: 15, 11:18,Call Closed Disclaimer v1.1 Copyright 2020 [employer] [address] [address] EMS Patient Care Report Name: JESSICA DOVENDA Room #: PRE M.R.#: [id number] Admission: Attend Phys: Discharge: Date of : 52 Report #: [id number] This EMS Care Summary contains data elements from the applicable legal record (which may be displayed differently). It is designed to provide pertinent information for the following purposes: continuity of care, clinical quality, and state data reporting. The complete legal record is available to ED staff and administrators of the receiving hospital in [employer]'s Patient Tracker. All data is provided "as is."
[2021-05-31 11:30] LABS: ABSOLUTE NEUTROPHILS 3.7 thou/uL (1.4-8.2); BASOPHILS 0.6 % (0.0-2.0); EOSINOPHILS 0.2 % (0.0-3.0); HEMATOCRIT 28.4 % (37.0-47.0); HEMOGLOBIN 8.9 gm/dL (12.0-15.0); LYMPHOCYTES 13.9 % (24.0-44.0); MCH 28.3 pg (26.0-34.0); MCHC 31.2 g/dL (28.0-37.0); MCV 90.5 fL (80.0-100.0); MONOCYTES 11.8 % (1.0-8.0); PLATELET COUNT 241 thou/uL (150-400); POLYS 73.5 % (36.0-66.0); RBC 3.14 mil/uL (4.20-5.00); RDW 17.9 % (10.5-14.5); WBC 5.1 thou/uL (4.0-11.0)
[2021-05-31 11:38] LABS: CALCIUM 8.8 mg/dL (8.5-10.1); CREATININE 1.6 mg/dL (0.6-1.0); POTASSIUM 5.2 mmol/L (3.5-5.1)
[2021-05-31 11:45] LABS: ALBUMIN 2.6 g/dL (3.4-5.0); TOTAL BILIRUBIN 0.2 mg/dL (0.2-1.0); TOTAL PROTEIN 7.8 g/dL (6.4-8.2)
[2021-05-31 12:02] LABS: BE(vivo) 3.3 mmol/L (-2 to +3); HCO3 32.8 mmol/L (22.0-26.0); PO2 105.4 mmHg (80.0-100.0); sO2 96.7 % (92.0-98.0)
[2021-05-31 12:04] LABS: PCO2 76.4 mmHg (35.0-45.0)
[2021-05-31 14:13] LABS: BE(vivo) 3.5 mmol/L (-2 to +3); HCO3 31.6 mmol/L (22.0-26.0); PO2 102.6 mmHg (80.0-100.0); sO2 96.5 % (92.0-98.0)
[2021-05-31 14:16] LABS: PCO2 73.8 mmHg (35.0-45.0)
[2021-05-31 16:01] LABS: URINE BILIRUBIN NEGATIVE (Negative); URINE BLOOD TRACE (Negative); URINE CLARITY CLEAR; URINE COLOR YELLOW; URINE GLUCOSE-RANDOM* NEGATIVE (Negative); URINE KETONES NEGATIVE (Negative); URINE LEUKOCYTES-REFLEX NEGATIVE (Negative); URINE NITRITE-REFLEX NEGATIVE (Negative); URINE PROTEIN (DIPSTICK) 2+ (Negative); URINE UROBILINOGEN 0.2 E.U./dl (0.2-1.0)
[2021-05-31 16:09] LABS: BACTERIA-REFLEX 1-9 Few /HPF (None Seen); CASTS None Seen /LPF (None Seen); CRYSTALS None Seen /LPF (None Seen); SQUAMOUS 0-3 Few /LPF (0-3); URINE RBC 1-2 Rare /HPF (NONE SEEN); URINE WBC-REFLEX 0-5 Rare /HPF (0-5)
--- NOTE | 2021-05-31 17:59 | NUR ---
RECEIVED PT FROM E.R. VIA STRETCHER TO ROOM 241.--VW IVT IN TO PLACE LINE. CALLED PT'S DTR CLARITZA MURCIA,LISTED FIRST (& ONLY) CONTACT. LEFT MESSAGE OON PHONE TO HAVE HER CALL THE ICU.--VW
--- NOTE | 2021-05-31 18:27 | NUR ---
A #6F TRIPLE LUMEN CENTRAL LINE WAS PLACED PER HOSPITAL POLICY AFTER A BEDSIDE TIMEOUT WAS COMPLETED. THE PROCEDURE WELL RISKS VS BENIFITS WERE DISCUSSED WITH THE PATIENT AND SHE VERBALIZED UNDERSTANDING. THE RIGHT JUGULAR WAS WIDLEY PATENT. THE 25CM LINE WAS ADVANCED WITHOUT DIFFICULTY TO 6CM EXTERNAL. A STAT CHEST XRAY WAS ORDERED FOR TIP PLACEMENT CONFIRMATION.
[2021-05-31 21:00] LABS: BE(vivo) 0.8 mmol/L (-2 to +3); PO2 84.6 mmHg (80.0-100.0); pH 7.239 (7.360-7.450); sO2 94.2 % (92.0-98.0)
[2021-05-31 21:01] LABS: PCO2 69.3 mmHg (35.0-45.0)
--- NOTE | 2021-05-31 22:10 | NUR ---
DR CHI AT BEDSIDE. PATIENT INTUBATED AT 2200 AND PROPROFOL GTT STARTED. OGT PLACED BY NURSE - 66 @ TEETH. PT NPO. STAT CXR ORDERED. ETT - 22 @ TEETH.
[2021-05-31 23:40] LABS: BE(vivo) -0.2 mmol/L (-2 to +3); HCO3 24.7 mmol/L (22.0-26.0); PCO2 41.4 mmHg (35.0-45.0); pH 7.394 (7.360-7.450); sO2 97.9 % (92.0-98.0)
[2021-06-01] VITALS (32 sets, daily range): BP systolic 111–152; BP diastolic 44–73
[2021-06-01 05:00] LABS: INR 0.99; PROTIME 10.8 Seconds (10.5-12.1)
[2021-06-01 05:03] LABS: HEMATOCRIT 23.9 % (37.0-47.0); HEMOGLOBIN 7.8 gm/dL (12.0-15.0); MCH 29.4 pg (26.0-34.0); MCHC 32.5 g/dL (28.0-37.0); MCV 90.3 fL (80.0-100.0); PLATELET COUNT 190 thou/uL (150-400); RBC 2.64 mil/uL (4.20-5.00); RDW 17.3 % (10.5-14.5); WBC 2.8 thou/uL (4.0-11.0)
[2021-06-01 05:11] LABS: ANION GAP 11 mmol/L (7-16); BUN 60 mg/dL (7-18); CALCIUM 8.2 mg/dL (8.5-10.1); CHLORIDE 108 mmol/L (98-107); CO2 24 mmol/L (21-32); CREATININE 1.5 mg/dL (0.6-1.0); DIRECT BILIRUBIN < 0.1 mg/dL (<0.1-0.2); GLUCOSE 214 mg/dL (74-106); POTASSIUM 4.9 mmol/L (3.5-5.1); SGOT 21 U/L (15-37); SGPT 10 U/L (30-65); SODIUM 143 mmol/L (136-145); TOTAL BILIRUBIN 0.3 mg/dL (0.2-1.0); TOTAL PROTEIN 6.7 g/dL (6.4-8.2)
--- NOTE | 2021-06-01 07:18 | EKG ---
[address] [address] ELECTROCARDIOGRAM REPORT Name: CALEB DOVE Room #: 241- ADM IN M.R.#: [id number] Admission: 05/31/21 Attend Phys: Quyen Khan MD Discharge: Date of : 52 Report #: [id number] 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
--- NOTE | 2021-06-01 07:29 | NUR ---
ORDERS FOR EVAL AND TREAT IN THE E.R. HOWEVER Pt NOW INTUBATED AND SEDATED. WILL HOLD AND AWAIT NEW ORDERS WHEN APPROPRIATE
[2021-06-01 13:19] LABS: ABSOLUTE NEUTROPHILS 2.1 thou/uL (1.4-8.2); ANISOCYTOSIS 1+; ATYPICAL LYMPHS 1 %; POIKILOCYTOSIS SLIGHT
--- NOTE | 2021-06-01 14:10 | NUR ---
report given to Antonio Gil RN.
--- NOTE | 2021-06-01 20:33 | HC ---
[facility] [place] [address] CONSULTATION Name: CALEB DOVE Room #: [facility]- ADM IN M.R.#: [id number] Admission: 05/31/21 Attend Phys: Quyen Khan MD Discharge: Date of : 52 Report #: [id number] THIS REPORT FOR: cc: David Peacock MD,David Peacock,Sarabjit Day MD ~ DATE OF SERVICE: 05/31/2021 INFECTIOUS DISEASE CONSULTATION REASON FOR CONSULTATION: I was asked to evaluate concerning COVID-19 pneumonia. HISTORY OF PRESENT ILLNESS: The patient is a 70-year-old who was transferred from [facility] due to fever, altered mental status and respiratory failure. The patient has underlying COPD and has baseline 3 liters of oxygen per nasal cannula. Does not appear to be on any chronic corticosteroids. She also has hypertension, diabetes and chronic kidney disease as well as obesity. On presentation to the Emergency Room, she was febrile up to 101 degrees. She is now on BiPAP at 60%. She remains encephalopathic. She has had reasonable urine output. She has had no nausea, vomiting or diarrhea. REVIEW OF SYSTEMS: The patient was unable to give any details of a 14-point review of systems. ALLERGIES: LISINOPRIL, GRAPEFRUIT, AND ALAYNA. MEDICATIONS: As noted on her MAR, which were reviewed. PAST MEDICAL HISTORY: Diabetes, peripheral neuropathy, hypertension, atrial fibrillation, obstructive sleep apnea, COPD, hyperlipidemia, chronic kidney disease, hysterectomy. FAMILY HISTORY: Not available. SOCIAL HISTORY: No current alcohol or tobacco use. PHYSICAL EXAMINATION: GENERAL: She is currently afebrile, hemodynamically stable, arousable, not conversant. CPAP mask on. Obese. SKIN: Without rash or decubitus. No palpable adenopathy. HEENT: Eyes without scleral icterus. NECK: Supple. Unable to evaluate her mouth. LUNGS: Crackles heard posteriorly, bilateral, without consolidation. HEART: Regular, without murmur, gallop or rub. ABDOMEN: Soft, no hepatosplenomegaly or mass, nontender. EXTREMITIES: Without clubbing, cyanosis or edema. The patient was able to move [facility] [address] [place] [address] CONSULTATION Name: CALEB DOVE Room #: [facility] IN M.R.#: [id number] Admission: 05/31/21 Attend Phys: Quyen Khan MD Discharge: Date of : 52 Report #: [id number] all extremities. Spine nontender. NEUROLOGIC: Mood sedate. LABORATORY DATA: Reviewed. MICROBIOLOGY: Reviewed. IMAGING: Chest x-ray reviewed. CT scan of the chest reviewed. IMPRESSION: A 70-year-old with underlying chronic obstructive pulmonary disease, oxygen requiring, with COVID-19 pneumonia, severe acute respiratory syndrome and respiratory failure. This is in the setting of underlying diabetes, hypertension, chronic kidney disease and obesity. RECOMMENDATION: We will continue combination of anti-inflammatory and antiviral therapy. She will have antibiotics pending culture results. If no improvement over the next 12 hours, we will then consider adding Actemra to her program. The patient will remain in intensive care unit for further cardiopulmonary care. I have discussed with critical care team regarding evaluation and treatment plan. <ELECTRONICALLY SIGNED> By: Sarabjit Peacock MD 06/01/21 2033 [id number] Sarabjit Peacock MD /nt
[2021-06-02] VITALS (17 sets, daily range): BP systolic 105–151; BP diastolic 42–58
[2021-06-02 05:11] LABS: ABSOLUTE NEUTROPHILS 3.1 thou/uL (1.4-8.2); BASOPHILS 0.1 % (0.0-2.0); HEMATOCRIT 23.1 % (37.0-47.0); HEMOGLOBIN 7.4 gm/dL (12.0-15.0); LYMPHOCYTES 10.3 % (24.0-44.0); MCH 28.8 pg (26.0-34.0); MCHC 32.2 g/dL (28.0-37.0); MCV 89.5 fL (80.0-100.0); MONOCYTES 9.7 % (1.0-8.0); PLATELET COUNT 188 thou/uL (150-400); POLYS 79.9 % (36.0-66.0); RBC 2.58 mil/uL (4.20-5.00); RDW 17.8 % (10.5-14.5); WBC 3.8 thou/uL (4.0-11.0)
[2021-06-02 05:57] LABS: ANION GAP 10 mmol/L (7-16); BUN 56 mg/dL (7-18); CALCIUM 8.1 mg/dL (8.5-10.1); CHLORIDE 112 mmol/L (98-107); CO2 26 mmol/L (21-32); CREATININE 1.8 mg/dL (0.6-1.0); DIRECT BILIRUBIN < 0.1 mg/dL (<0.1-0.2); GLUCOSE 160 mg/dL (74-106); PHOSPHORUS 4.1 mg/dL (2.5-4.9); POTASSIUM 4.1 mmol/L (3.5-5.1); SGOT 14 U/L (15-37); SGPT 9 U/L (30-65); SODIUM 148 mmol/L (136-145); TOTAL BILIRUBIN 0.2 mg/dL (0.2-1.0); TOTAL PROTEIN 6.4 g/dL (6.4-8.2)
[2021-06-02 06:11] LABS: ALBUMIN 2.1 g/dL (3.4-5.0); CALCIUM 8.1 mg/dL (8.5-10.1); CREATININE 1.8 mg/dL (0.6-1.0); POTASSIUM 4.2 mmol/L (3.5-5.1); TOTAL BILIRUBIN 0.2 mg/dL (0.2-1.0); TOTAL PROTEIN 6.1 g/dL (6.4-8.2)
--- NOTE | 2021-06-02 11:50 | NUR ---
ASSUMED CARE OF PT AT 0700 PT WAKES UP AND FOLLOWS COMMANDS I SPOKE TO THE PT AT 0930 AND UPDATED PER POC I SPOKE TO HER DAUGHTER CLARITZA AT 1147 AND UPDATED HER PER POC
--- NOTE | 2021-06-02 15:47 | NUR ---
INITIAL ASSESSMENT: MARY reviewed chart and spoke with nursing and attending physician. Pt was admitted from [facility] due to COVID pneumonia. Pt placed in Enhanced Isolation. Pt is in the ICU. Intubated and sedated. Pt is on IV meds and Remdesivir. Order for actemra to be given today. MARY spoke with pt's dtr, Sofi. Introduced role of SW. Pt is currently in the skilled rehab unit at [facility]. Pt has not received a COVID vaccination. Pt was at [facility] and then discharged to [facility] on 05/19/2021. Pt with hx of CHF/DM/CKD. Pt normally lives at home alone. Pt has a w/c and is able to ambulate with a walker in her home. Pt is on continuous home O2. Pt's PCP is Dr. Barry Yip at [facility]. Pt's dtr states that it is okay for SW to keep [facility] updated. Unsure of discharge plan at this time. MARY faxed clinical updates to admissions at [facility]. Updated Jeferson in admissions. MARY is following to assist as needed with discharge planning.
[2021-06-02 22:06] LABS: HIV ANTIBODY Non Reactive (Non Reactive)
[2021-06-03] VITALS (23 sets, daily range): BP systolic 124–179; BP diastolic 35–107
[2021-06-03 06:57] LABS: ALBUMIN 1.9 g/dL (3.4-5.0); ANION GAP 11 mmol/L (7-16); BUN 58 mg/dL (7-18); CALCIUM 7.9 mg/dL (8.5-10.1); CHLORIDE 115 mmol/L (98-107); CO2 26 mmol/L (21-32); CREATININE 1.7 mg/dL (0.6-1.0); DIRECT BILIRUBIN < 0.1 mg/dL (<0.1-0.2); GLUCOSE 147 mg/dL (74-106); PHOSPHORUS 3.8 mg/dL (2.5-4.9); POTASSIUM 4.1 mmol/L (3.5-5.1); SGOT 13 U/L (15-37); SGPT 9 U/L (30-65); SODIUM 152 mmol/L (136-145); TOTAL BILIRUBIN 0.2 mg/dL (0.2-1.0); TOTAL PROTEIN 5.7 g/dL (6.4-8.2)
--- NOTE | 2021-06-03 12:29 | NUR ---
MARY reviewed chart and spoke with nursing and attending physician. Case discussed during ICU rounds. Pt remains intubated. Pt is off sedation and following commands. Tube feeding to be started via OG tube. Pt has been placed in restraints. No weekend discharge planned. MARY updated Jeferson at [facility]. MARY is following to assist as needed with discharge planning.
[2021-06-03 13:06] LABS: HEMATOCRIT 23.8 % (37.0-47.0); HEMOGLOBIN 7.4 gm/dL (12.0-15.0)
--- NOTE | 2021-06-03 22:46 | NUR ---
This RN spoke to Sofi Perez, daughter, at 2230. Updated on plan of care and patient status. Also obained informed consent for blood with Padmini Mckeon RN from daughter at this time.
[2021-06-04] VITALS (31 sets, daily range): BP systolic 81–209; BP diastolic 47–162
[2021-06-04 06:55] LABS: ALBUMIN 1.8 g/dL (3.4-5.0); ANION GAP 11 mmol/L (7-16); BUN 48 mg/dL (7-18); CALCIUM 8.2 mg/dL (8.5-10.1); CHLORIDE 112 mmol/L (98-107); CO2 23 mmol/L (21-32); CREATININE 1.5 mg/dL (0.6-1.0); DIRECT BILIRUBIN < 0.1 mg/dL (<0.1-0.2); GLUCOSE 173 mg/dL (74-106); PHOSPHORUS 3.5 mg/dL (2.5-4.9); POTASSIUM 4.1 mmol/L (3.5-5.1); SGOT 16 U/L (15-37); SGPT 8 U/L (30-65); SODIUM 146 mmol/L (136-145); TOTAL BILIRUBIN 0.2 mg/dL (0.2-1.0); TOTAL PROTEIN 6.3 g/dL (6.4-8.2)
[2021-06-04 11:50] LABS: HEMOGLOBIN 8.8 gm/dL (12.0-15.0); MCH 28.1 pg (26.0-34.0); MCHC 31.3 g/dL (28.0-37.0); MCV 89.7 fL (80.0-100.0); RBC 3.13 mil/uL (4.20-5.00); RDW 18.1 % (10.5-14.5); WBC 4.4 thou/uL (4.0-11.0)
--- NOTE | 2021-06-04 14:12 | NUR ---
PATIENT SELF EXTUBATED AT 1406. DR. CHI NOTIFIED AT 1410. NO NEW ORDERS.
[2021-06-05] VITALS (27 sets, daily range): BP systolic 60–186; BP diastolic 25–128
[2021-06-05 08:46] LABS: ABSOLUTE NEUTROPHILS 5.1 thou/uL (1.4-8.2); EOSINOPHILS 0.2 % (0.0-3.0); HEMATOCRIT 31.8 % (37.0-47.0); HEMOGLOBIN 10.1 gm/dL (12.0-15.0); LYMPHOCYTES 16.5 % (24.0-44.0); MCH 28.1 pg (26.0-34.0); MCHC 31.6 g/dL (28.0-37.0); MCV 88.7 fL (80.0-100.0); MONOCYTES 6.9 % (1.0-8.0); PLATELET COUNT 174 thou/uL (150-400); POLYS 76.4 % (36.0-66.0); RBC 3.59 mil/uL (4.20-5.00); RDW 17.9 % (10.5-14.5); WBC 6.7 thou/uL (4.0-11.0)
[2021-06-05 08:54] LABS: ALBUMIN 2.1 g/dL (3.4-5.0); CALCIUM 8.5 mg/dL (8.5-10.1); CREATININE 1.3 mg/dL (0.6-1.0); POTASSIUM 3.8 mmol/L (3.5-5.1); TOTAL BILIRUBIN 0.3 mg/dL (0.2-1.0); TOTAL PROTEIN 6.8 g/dL (6.4-8.2)
[2021-06-05 11:29] LABS: T-SPOT.TB Negative
--- NOTE | 2021-06-05 12:52 | NUR ---
SPOKE WITH AMILCAR DOVE, OF THE PATIENT, FROM 2214-2478 AND HE WAS UPDATED AND EDUCATED ON THE PATIENT'S CONDITION AND PLAN OF CARE. HE WAS ALSO EDUCATED ON PHONE CALL POLICY AND GIVING PATIENT INFORMATION OVER THE PHONE.
[2021-06-06] VITALS (21 sets, daily range): BP systolic 114–174; BP diastolic 30–152
--- NOTE | 2021-06-06 09:27 | NUR ---
PATIENT PROGRESSING SLOWLY TOWARD GOALS. PATIENT CONGESTED WITH COUGH S/P SELF-EXTUBATION. PATIENT ALERT AND CALM AND DENIES PAIN. PATIENT SLEPT QUIETLY MOST OF THE NOC. CONTINUOUS AMIO GTT. PATIENT BECAME HYPERTENSIVE ONETOME AND PRN HYDRALAZINE GIVEN. ADEQUATE URINE OUTPUT THROUGOUT THE NOC. POC IS FOR POSSIBLE TRANSFER TODAY ANOTHER UNIT D/T PATIENT STABLE ON 5L NC.
--- NOTE | 2021-06-06 14:44 | NUR ---
returned call to Sofi Perez, daughter. spoke with her and answered questions to her satisfaction. She stated, they would be bringing in her Trilogy (cpap machine and a phone marketing financial analyst).
--- NOTE | 2021-06-06 15:44 | NUR ---
MARY reviewed chart and spoke with nursing and attending physician. Case also discussed during ICU rounds. Pt self-extubated over the weekend. Pt remains in Enhanced Isolation due to COVID. ST eval completed earlier today. Pt to be started on a pureed diet with thickened liquids. Pt to transfer out of ICU to 3W when a bed becomes available. PT/OT evals ordered today. MARY spoke with pt's dtr, Sofi, via phone. Updated provided and confirmed discharge plan is for pt to return to [facility] when medically stable for discharge. Pt's family to bring her phone fire pot operator and trilogy machine to the hospital later today or tomorrow. MARY faxed clinical/therapy updates to [facility] for review. MARY updated Jeferson in admissions. MARY is following to assist as needed with discharge planning.
[2021-06-07] VITALS (12 sets, daily range): BP systolic 103–181; BP diastolic 48–86
[2021-06-07 14:09] LABS: ALBUMIN 2.1 g/dL (3.4-5.0); ANION GAP 11 mmol/L (7-16); BUN 31 mg/dL (7-18); CALCIUM 8.4 mg/dL (8.5-10.1); CHLORIDE 109 mmol/L (98-107); CO2 25 mmol/L (21-32); CREATININE 1.4 mg/dL (0.6-1.0); DIRECT BILIRUBIN < 0.1 mg/dL (<0.1-0.2); GLUCOSE 359 mg/dL (74-106); PHOSPHORUS 2.9 mg/dL (2.6-4.7); SGOT 27 U/L (15-37); SGPT 19 U/L (14-59); SODIUM 145 mmol/L (136-145); TOTAL BILIRUBIN 0.3 mg/dL (0.2-1.0); TOTAL PROTEIN 6.3 g/dL (6.4-8.2)
--- NOTE | 2021-06-07 14:27 | NUR ---
Sofi- dptex/kenia inquired regarding pt status. updated on pt's progress and that pt is progessing enough that she could return to [facility] tomorrow. assured her that her mother was ready for [facility] based on her progress today and Case Management is involved in her return. then Sofi returned call and doesn't feel her mother is ready for transfer. assured her that she was. she requested that the Dr. Khan call her. Dr. Khan notified.
[2021-06-08] VITALS (21 sets, daily range): BP systolic 112–200; BP diastolic 47–78
[2021-06-08 06:04] LABS: ALBUMIN 2.1 g/dL (3.4-5.0); ANION GAP 9 mmol/L (7-16); BUN 28 mg/dL (7-18); CALCIUM 8.4 mg/dL (8.5-10.1); CHLORIDE 114 mmol/L (98-107); CO2 28 mmol/L (21-32); CREATININE 1.1 mg/dL (0.6-1.0); DIRECT BILIRUBIN < 0.1 mg/dL (<0.1-0.2); GLUCOSE 103 mg/dL (74-106); PHOSPHORUS 2.5 mg/dL (2.5-4.9); POTASSIUM 3.4 mmol/L (3.5-5.1); SGOT 22 U/L (15-37); SGPT 19 U/L (30-65); SODIUM 151 mmol/L (136-145); TOTAL BILIRUBIN 0.2 mg/dL (0.2-1.0); TOTAL PROTEIN 6.1 g/dL (6.4-8.2)
[2021-06-08 19:08] LABS: MAGNESIUM 1.6 mg/dL (1.8-2.4); POTASSIUM 3.8 mmol/L (3.5-5.1)
[2021-06-09] VITALS (20 sets, daily range): BP systolic 139–183; BP diastolic 41–81
[2021-06-09 02:47] LABS: ALBUMIN 2.2 g/dL (3.4-5.0); ANION GAP 8 mmol/L (7-16); BUN 28 mg/dL (7-18); CALCIUM 8.3 mg/dL (8.5-10.1); CHLORIDE 115 mmol/L (98-107); CO2 26 mmol/L (21-32); CREATININE 1.1 mg/dL (0.6-1.0); DIRECT BILIRUBIN < 0.1 mg/dL (<0.1-0.2); GLUCOSE 123 mg/dL (74-106); PHOSPHORUS 1.7 mg/dL (2.5-4.9); POTASSIUM 3.2 mmol/L (3.5-5.1); SGOT 18 U/L (15-37); SGPT 21 U/L (30-65); SODIUM 149 mmol/L (136-145); TOTAL BILIRUBIN 0.2 mg/dL (0.2-1.0); TOTAL PROTEIN 5.8 g/dL (6.4-8.2)
--- NOTE | 2021-06-09 04:16 | NUR ---
ASSUMED CARE OF PATIENT AT 1900. PATIENT IS CCT STATUS, WAITING ON BED ON 3W. AWAKE MOST OF THE NIGHT, ABLE TO MAKE NEEDS KNOWN. POTASSIUM AND MAGNESIUM REPLACED PER PROTOCOL. PROGRESSING WELL TOWARDS POC GOALS.
[2021-06-09 08:51] LABS: BASOPHILS 0.3 % (0.0-2.0); EOSINOPHILS 0.1 % (0.0-3.0); HEMATOCRIT 28.9 % (37.0-47.0); LYMPHOCYTES 15.9 % (24.0-44.0); MCH 27.9 pg (26.0-34.0); MCHC 31.1 g/dL (28.0-37.0); MCV 89.7 fL (80.0-100.0); MONOCYTES 11.3 % (1.0-8.0); PLATELET COUNT 182 thou/uL (150-400); POLYS 72.4 % (36.0-66.0); RBC 3.22 mil/uL (4.20-5.00); RDW 18.4 % (10.5-14.5); WBC 6.9 thou/uL (4.0-11.0)
[2021-06-09 10:27] LABS: ANISOCYTOSIS 2+; PLATELET ESTIMATE NORMAL
--- NOTE | 2021-06-09 11:15 | 2DMMODE ---
[facility] [place] [address] 2 D/M-MODE ECHOCARDIOGRAM Name: CALEB DOVE Room #: 241-P ADM IN M.R.#: [id number] Admission: 05/31/21 Attend Phys: Quyen Khan MD Discharge: Date of : 52 Report #: [id number] THIS REPORT FOR: cc: David Peacock MD, Christopher B. MD Santiago, Patrick MD [facility] ~ APPROVED REPORT Study performed: 06/09/2021 10:30:15 EXAM: Comprehensive 2D, Doppler, and color-flow Echocardiogram Patient Location: ICU Room #: 241 Status: routine BSA: 0.81 HR: 68 bpm BP: 169/63 mmHg Rhythm: NSR Other Information Study Quality: Technically Difficult Technically limited study due to body habitus, inability to position patient. Indications Atrial Fibrillation 2D Dimensions IVC: 22.00 mm Tricuspid Valve TR Peak Eyal.: 3.91 m/s TR Peak Gr.: 61.06 mmHg PA Pressure: 71.00 mmHg Left Ventricle The left ventricle is normal size. There is normal LV segmental wall motion. There is normal left ventricular wall thickness. The left ventricular systolic function is normal. The left ventricular ejection fraction is within the normal range. LVEF is 55-60%. This study is not technically sufficient to allow evaluation of the LV diastolic function. Right Ventricle [facility] [address] [place] [address] 2 D/M-MODE ECHOCARDIOGRAM Name: CALEB DOVE Room #: 241-P ADM IN M.R.#: [id number] Admission: 05/31/21 Attend Phys: Amador Cohn Discharge: Date of : 52 Report #: [id number] Right ventricle is dilated. The right ventricular systolic function is normal. Atria Left atrium is dilated. Right atrium is dilated. Aortic Valve The aortic valve is normal in structure. Mitral Valve The mitral valve is normal in structure. Trace mitral regurgitation. No evidence of mitral valve stenosis. Tricuspid Valve The tricuspid valve is normal in structure. There is moderate tricuspid regurgitation. Estimated PAP 71 mmHg. There is severe pulmonary hypertension. Pulmonic Valve The pulmonary valve is normal in structure. Great Vessels The aortic root is normal in size. IVC is dilated and collapses <50% with inspiration. Pericardium There is no pericardial effusion. <Conclusion> Normal left ventricle size/wall thickness Ejection fraction 60% Right ventricle borderline dilated, preserved systolic function Mild biatrial enlargement Normal aortic valve structure and function Trace mitral valve insufficiency Moderate tricuspid valve insufficiency Severe pulmonary hypertension PA pressure estimated 71 mmHg No pericardial effusion Normal aortic root size. <ELECTRONICALLY SIGNED> By: Jovan Ortega MD, [facility] 06/09/21 1115 1115 1115 Jovan Ortega MD, FACC /INF
--- NOTE | 2021-06-09 15:52 | NUR ---
PT CARE DISCUSSED THIS AM. CM CARE TEAM INDICATED THAT [facility] SHOULD HER PO INTAKE IMPROVE AND HER LABS LOOK BETTER. CM PROVIDED HOSPITALIST PT'S DTR CLARITZA'S PHONE NUMBER. AND INDICATED TO DTR THAT HOSPITALIST WOULD CALL AND SPEAK WITH HER WELL. CM NOTIFIED [facility] OF POSSIBLE DISCHARGE AND FAXED CLINICAL UPDATE. CM FOLLOWING REGARDING DC PLANNING.
--- NOTE | 2021-06-09 23:00 | NUR ---
PT C/O RLQ PAIN THAT RADIATES TO CENTER WITHOUT REBOUND TENDERNESS. PT HAD LARGE SEMI-LIQUID BM AROUND THE SAME TIME. PATIENT GIVEN MEDS TO MANAGE PAIN WITH GOOD RESULTS. WILL CONTINUE TO MONITOR AND ASSESS FOR CHANGES
[2021-06-10] VITALS (14 sets, daily range): BP systolic 120–176; BP diastolic 50–90
[2021-06-10 05:13] LABS: CALCIUM 8.2 mg/dL (8.5-10.1); POTASSIUM 3.7 mmol/L (3.5-5.1)
--- NOTE | 2021-06-10 09:14 | NUR ---
ASSUMED CARE AT 0700 THIS AM. PT A&OX4,GCS 15. PT CENTRAL LINE DRESSING HAS NOTICABLE BLOOD ON THE DRESSING, B/P CUFF NOT ON PT. PT C/O OF RIGHT SIDED ABDOMINAL PAIN DESCRIBES IT CONSTANT IN NATURE. DR. CHRISTIANSON NOTIFIED OF FINDINGS. WILL FOLLOW POC
[2021-06-10 10:40] LABS: HEMOGLOBIN 9.3 gm/dL (12.0-15.0); MCHC 31.1 g/dL (28.0-37.0); RBC 3.33 mil/uL (4.20-5.00); RDW 18.4 % (10.5-14.5); WBC 5.4 thou/uL (4.0-11.0)
[2021-06-10 12:10] LABS: POTASSIUM 4.1 mmol/L (3.5-5.1)
[2021-06-10 12:33] LABS: CALCIUM 8.4 mg/dL (8.5-10.1); CREATININE 1.2 mg/dL (0.6-1.0)
--- NOTE | 2021-06-10 16:37 | NUR ---
CARE TEAM INDICATED THAT PT IS NEARING MEDICAL STABILITY TO DC TO SKILLED AT [facility]. HOSPITALIST AND CARE TEAM ANTICIPATING POSSIBLE DC SUNDAY TO [facility] PT WAS HAVING SOME BLEEDING THIS DAY. FACILITY WANTING PT TO GO TO THEIR SKILLED UNIT NOT THEIR COVID ISO UNIT AND PT WOULD BE ABLE TO ADMIT DIRECTLY TO THE SKILLED MEDICARE UNIT ON SUNDAY. CM FOLLOWING REGARDING DC PLANNING.
[2021-06-11] VITALS (11 sets, daily range): BP systolic 145–188; BP diastolic 46–74
--- NOTE | 2021-06-11 12:30 | NUR ---
DR. MARGARET GALLARDO HERE. UPDATE GIVEN ORDERS GIVEN.
--- NOTE | 2021-06-11 15:00 | NUR ---
CALLED DR. PELAYO RE, PT PAIN 8 OF 10 AND TOO SOON TO GIVE HYDROCODONE. ORDERS GIVEN. 1 HYDROCODONE GIVEN FOR PAIN. PREPARING PT FOR CT ABD/PELVIS.
--- NOTE | 2021-06-11 22:11 | NUR ---
PT ROVERTOERT X4 BUT FORGETFUL TO RECENT EVENTS AND IS A POOR HISTORIAN. NOTIFIED DR HOLMAN OF PT'S CT AF ABDOMEN RESULTS. PT NOT ON ANTICOAGULANTS. NO FURTHER ORDERS GIVEN. PT REMAINS NPO. NOTIFIED ORNAMENTAL IRON WORKER HELPER I HELD HER 12 UNITS SS INSULIN DUE TO PT STILL NPO. NOTIFIED ORNAMENTAL IRON WORKER HELPER OF C/O ABD PAIN PRIOR TO SIX HOURS. SHE STATED SHE WOULD CHANGE HYDROCODONE TO Q 4 HR PRN. PT IS RESTING QUIETLY PRESENTLY. NO S/S DISTRESS. BED DOWN CALL LIGHT IN REACH. BED ALARM ON. SCDS ON.
[2021-06-12] VITALS (26 sets, daily range): BP systolic 87–183; BP diastolic 28–71
--- NOTE | 2021-06-12 00:51 | NUR ---
BATHA AND ORAL CARE COMPLETED. ZGARD APPLIED TO REDDENED BOTTOM. NO OPEN AREAS NOTED ON SKIN. HYDRALAZINE GIVEN FOR BP >160. BP NOW DOWN TO 124/70 , PULSE 67. PT REFUSING HOME TRIOLOGY ACCORDING TO RT. REFUSED HOSPITAL FM ALSO. O2 3LNC IN PLACE SATS 97%-98%.
--- NOTE | 2021-06-12 05:15 | NUR ---
PT ALERT AND ORIENTED WITH PERIODS OF FORGETFULNESS. VSS AFEBRILE THIS AM. MEDICATED WITH HYDROCODONE FOR C/O ABDOMINAL PAIN 01/08. PRESENTLY SHE IS SLEEPING QUIETLY. NO S/S DISTRESS. HER ABDOMEN APPEARS BRUISED IN A FEW DIFFERENT AREAS. NO BLEEDING NOTED TONIGHT. BP TREATED WITH HYDRALAZINE TONIGHT JULISSA REMAINS MODERATELY ELEVATED.
[2021-06-13] VITALS (10 sets, daily range): BP systolic 142–194; BP diastolic 46–71
[2021-06-13 05:17] LABS: HEMOGLOBIN 7.6 gm/dL (12.0-15.0); MCH 28.8 pg (26.0-34.0); MCHC 32.8 g/dL (28.0-37.0); MCV 87.6 fL (80.0-100.0); RBC 2.63 mil/uL (4.20-5.00); RDW 18.3 % (10.5-14.5); WBC 4.7 thou/uL (4.0-11.0)
[2021-06-13 05:22] LABS: CALCIUM 8.5 mg/dL (8.5-10.1); CREATININE 1.1 mg/dL (0.6-1.0); POTASSIUM 3.5 mmol/L (3.5-5.1)
--- NOTE | 2021-06-13 16:39 | NUR ---
RN ASSUMED PT'S CARE AT 1200PM, PT CAME FROM ICU, PT'S SOB AND PNA HAVE IMPROVED, PT IS ON O2 3L/MIN/NC, PT DENIES PAIN AND SOB BY THIS TIME. PT HAS WORKED WITH PT/OT, PT DEEDS SOME HELP WITH ADL.
--- NOTE | 2021-06-13 16:54 | NUR ---
SW reviewed chart and spoke with nursing and attending physician. Case also discussed in ICU rounds. Pt remains in Enhanced Isolation due to COVID. Pt was transferred to from ICU earlier today. MARY faxed updated clinical and therapy notes to [facility] for review. MARY updated Jeferson in admissions. Pt is requiring bipap support. Plan is for pt to discharge back to [facility] when medically stable. MARY is following to assist as needed with discharge planning.
[2021-06-13 20:33] LABS: HEMATOCRIT 22.9 % (37.0-47.0); HEMOGLOBIN 7.6 gm/dL (12.0-15.0); MCH 28.9 pg (26.0-34.0); MCHC 33.1 g/dL (28.0-37.0); MCV 87.4 fL (80.0-100.0); RBC 2.61 mil/uL (4.20-5.00); RDW 17.6 % (10.5-14.5); WBC 9.3 thou/uL (4.0-11.0)
[2021-06-14 03:17] VITALS: BP 166/66
--- NOTE | 2021-06-14 05:15 | NUR ---
PT UP IN BED AND IS ALERT & ORIENTED X 4. PT HAD C/O OF PAIN ON HER ABDOMEN. ADMINISTRED PAIN MEDS PRN. HOOD TO DD. VSS AFEBRILE. PT ON 3L O2 NC BUT USES BIPAP HS AT 35% FIO2. PT HAS RIGHT IJ TRIPLE LUMEN CENTRAL LINE. UNABLE TO FLUSH AND ASPIRATE BLOOD FOR 2 LINES. WILL NOTIFY DAY RN TO CONTACT IV TEAM. CONTINUE WITH PLAN OF CARE.
[2021-06-14 05:55] LABS: ABSOLUTE NEUTROPHILS 6.1 thou/uL (1.4-8.2); BASOPHILS 0.2 % (0.0-2.0); EOSINOPHILS 1.5 % (0.0-3.0); HEMATOCRIT 22.1 % (37.0-47.0); HEMOGLOBIN 7.2 gm/dL (12.0-15.0); LYMPHOCYTES 16.7 % (24.0-44.0); MCH 28.6 pg (26.0-34.0); MCHC 32.5 g/dL (28.0-37.0); MONOCYTES 6.2 % (1.0-8.0); PLATELET COUNT 171 thou/uL (150-400); POLYS 75.4 % (36.0-66.0); RBC 2.52 mil/uL (4.20-5.00); RDW 18.2 % (10.5-14.5); WBC 8.1 thou/uL (4.0-11.0)
[2021-06-14 06:33] LABS: CALCIUM 8.5 mg/dL (8.5-10.1); CREATININE 1.3 mg/dL (0.6-1.0); MAGNESIUM 1.3 mg/dL (1.8-2.4); POTASSIUM 3.6 mmol/L (3.5-5.1)
[2021-06-14 07:39] VITALS: BP 153/60
[2021-06-14 11:07] VITALS: BP 153/53
[2021-06-14 15:09] VITALS: BP 157/52
--- NOTE | 2021-06-14 16:30 | NUR ---
VASCULAR ACCESS NURSE WAS NOTIFIED THAT THE PATIENTS CENTRAL LINE WAS OCCLUDED. AT THIS TIME A HOLD WAS NOTED IN THE EMAR ON THE CATHFLO. 3W INFO PRINT PRESS OPERATOR NOTIFIED DR. KENNEDY AND HE GAVE THE OK TO GIVE CATHFLO TO DECLOT THE CENTRAL LINE. PROTOCOL ORDER PLACED
--- NOTE | 2021-06-14 16:52 | NUR ---
MARY reviewed chart and spoke with nursing and attending physician. Pt remains in Enhanced Isolation due to COVID. Pt is afebrile and on O2. Pt is on IV meds. Therapy is working with pt. Plan is for pt to discharge back to [facility] when medically stable. Pt is requiring bipap support. MARY spoke with pt's dtr, Sofi, via phone to provide update. Sofi is agreeable with discharge plan. MARY is following to assist as needed with discharge planning.
--- NOTE | 2021-06-14 17:05 | NUR ---
IV TEAM RN CATH FLOW 1 PORT AND UNKINKED THE OTHER PORT. WILL ASSESS ALL CVP PORTS TO SEE IF ABLE TO USE.
[2021-06-14 19:35] VITALS: BP 138/57
[2021-06-15 03:45] VITALS: BP 133/55
[2021-06-15 04:31] LABS: HEMATOCRIT 22.9 % (37.0-47.0); HEMOGLOBIN 7.5 gm/dL (12.0-15.0); MCH 28.6 pg (26.0-34.0); MCHC 32.6 g/dL (28.0-37.0); MCV 87.8 fL (80.0-100.0); RBC 2.6 mil/uL (4.20-5.00); RDW 18.5 % (10.5-14.5); WBC 9.1 thou/uL (4.0-11.0)
--- NOTE | 2021-06-15 04:57 | NUR ---
O2 at 3L/NC at beginning of shift then BIPAP at HS. She slept fair during the night. Denies any pain. Cont. on enhanced precaution , ,afebrile. Incontinent of large soft unformed bm last night. Repositioned prn for comfort.
[2021-06-15 05:20] LABS: CALCIUM 8.6 mg/dL (8.5-10.1); CREATININE 1.4 mg/dL (0.6-1.0); MAGNESIUM 1.3 mg/dL (1.8-2.4); POTASSIUM 3.5 mmol/L (3.5-5.1)
[2021-06-15 07:29] VITALS: BP 191/69
--- NOTE | 2021-06-15 14:20 | NUR ---
MARY reviewed chart and spoke with nursing and attending physician. Pt remains in Enhanced Isolation due to COVID. Pt is afebrile and on 4L. Pt is on IV meds and on Remdesivir. Pt is progressing towards goals for discharge. Plan is for to discharge back to [facility] when medically stable. MARY faxed updated clinical/therapy notes to [facility] for review. MARY updated Racquel and Jeferson in admissions. MARY is following to assist as needed with discharge planning.
[2021-06-15 15:30] VITALS: BP 130/54
--- NOTE | 2021-06-15 15:57 | NUR ---
PT ON 3L NC. PT HAD 3 LARGE BROWN LOOSE BM. HELD LAXATIVE FOR NOW WILL CONINUE TO MONITOR.
[2021-06-15 19:06] VITALS: BP 154/50
--- NOTE | 2021-06-15 22:55 | NUR ---
PT RESTING IN BED. O2 PER NC. SWITCHED CONTINUOUS PULSE OX TO DIFFERENT FINGER. LUNGS DIMINIHSED. HEART RATE DISTANT. PT OBESE. PT DECLINED HS SENNA, REPORTED FREQUENT STOOLS ON DAYSHIFT. PT DECLINED HS SNACK. PT CALLS FOR ASSISTANCE. BED ALARM ON. RIJ INTACT. SANA TO CRISSY.
[2021-06-16 03:45] VITALS: BP 179/55
[2021-06-16 06:25] VITALS: BP 155/80
[2021-06-16 07:51] VITALS: BP 158/66
[2021-06-16 11:25] VITALS: BP 155/54
--- NOTE | 2021-06-16 14:01 | NUR ---
MARY reviewed chart and spoke with nursing and attending physician. Pt remains in Enhanced Isolation due to COVID. Pt is afebrile and on 3-4L of O2. Attending physician states pt is ready for discharge. MARY notified Racquel and Jeferson in admissions at [facility], who confirm they can accept pt back today. Awaiting discharge ppwk at this time. MARY spoke with pt's dtr, Sofi, via phone to provide update and notify of possible discharge later today or tomorrow. Sofi is aware and in agreement with plan. Pt's dtr states that pt has her trilogy machine at the hospital, but her mask does not fit her anymore, due to weight loss. Pt's dtr is unsure what company provided the trilogy machine. MARY requested that the admissions dept at [facility] assist with having pt evaluated when she returns to the facility for a new mask. Chart copy requested. Awaiting discharge ppwk. MARY is following to assist as needed with discharge planning.
[2021-06-16] MEDS ORDERED: PACERONE 200 M200 M1 PO (15:06)
[2021-06-16] MEDS ORDERED: PULMICORT FLEX90 MCG INH (15:06)
[2021-06-16] MEDS ORDERED: ACETAMINOPHEN325 M1 PO (15:06)
[2021-06-16] MEDS ORDERED: PROTONIX 20 MG20 M1 PO (15:06)
[2021-06-16] MEDS ORDERED: VITAMIN C1000 MG PO (15:06)
[2021-06-16] MEDS ORDERED: DEMADEX20 MG PO (15:06)
[2021-06-16] MEDS ORDERED: VITAMIN D325 MC2 PO (15:06)
[2021-06-16] MEDS ORDERED: ZINC SULFATE50 MG PO (15:06)
[2021-06-16] MEDS ORDERED: ELIQUIS2.5 MG PO (15:06)
[2021-06-16 16:00] VITALS: BP 112/91
--- NOTE | 2021-06-16 17:20 | NUR ---
DISCHARGE NOTE: GIVEN DISCHARGE INFORMATION AND SIGNED VERBAL CONSENT. NEW MEDICATION PAPERWORK GIVEN AND GONE OVER. WENT OVER UPCOMING MEDICAL APPOINTMENTS. CENTRAL LINE AND HOOD DC'D. ALL BELONGINGS WITH PT. PT WAITING FOR RIDE. WILL BE DC'D TO [facility] VIA WHEELCHAIR VAN.
== END 2021-06-16 17:48 | DRG 871 ==
LOC: ER 11:11 → ICU 15:44 → 3W 15:44 → EROBS 15:44 → ICU 17:14 → 3W 06-13 11:51
PROVIDERS: Internal Medicine; Nurse Practitioner; Pediatrics; Specialist; Surgery; ADMIT Hospitalist; ATTEND Hospitalist
DX: A41.89 Other specified sepsis (principal); U07.1 COVID-19; J12.82 Pneumonia due to coronavirus disease 2019; J80 Acute respiratory distress syndrome; J15.0 Pneumonia due to Klebsiella pneumoniae; N17.0 Acute kidney failure with tubular necrosis; J44.1 Chronic obstructive pulmonary disease with (acute) exacerbation; E87.0 Hyperosmolality and hypernatremia; E46 Unspecified protein-calorie malnutrition; J44.0 Chronic obstructive pulmonary disease with (acute) lower respiratory infection; I50.42 Chronic combined systolic (congestive) and diastolic (congestive) heart failure; Z68.42 Body mass index [BMI] 45.0-49.9, adult; I13.0 Hypertensive heart and chronic kidney disease with heart failure and stage 1 through stage 4 chronic kidney disease, or unspecified chronic kidney disease; E11.42 Type 2 diabetes mellitus with diabetic polyneuropathy; E78.5 Hyperlipidemia, unspecified; N18.30 Chronic kidney disease, stage 3 unspecified; M10.9 Gout, unspecified; E66.01 Morbid (severe) obesity due to excess calories; E87.5 Hyperkalemia; G47.33 Obstructive sleep apnea (adult) (pediatric); E11.22 Type 2 diabetes mellitus with diabetic chronic kidney disease; I48.0 Paroxysmal atrial fibrillation; F32.9 Major depressive disorder, single episode, unspecified; J22 Unspecified acute lower respiratory infection; D63.8 Anemia in other chronic diseases classified elsewhere; R53.81 Other malaise; R13.10 Dysphagia, unspecified; I07.1 Rheumatic tricuspid insufficiency; S30.1XXA Contusion of abdominal wall, initial encounter; X58.XXXA Exposure to other specified factors, initial encounter; Y93.89 Activity, other specified; Y92.89 Other specified places as the place of occurrence of the external cause; Z90.710 Acquired absence of both cervix and uterus; Z88.8 Allergy status to other drugs, medicaments and biological substances; Z91.14 Patient's other noncompliance with medication regimen; Y99.8 Other external cause status; Z79.899 Other long term (current) drug therapy
CPT/HCPCS: 10078; 10203; 10879; 85076

== ENCOUNTER 2021-07-05 17:30 | Inpatient (IN) | payer OTHER ==
[~2021-07-05] VITALS: Ht 157.5 cm; Wt 131.4 kg
--- NOTE | ~2021-07-05 | EMS ---
[facility] [address] [place] [address] EMS Patient Care Report Name: CALEB DOVE Room #: 209-P ADM IN M.R.#: [id number] Admission: 07/05/21 Attend Phys: Román Payton MD Discharge: Date of : 52 Report #: [id number] THIS REPORT FOR: //name// Report Transmitted: 07/13/2021 08:05 EMS Care Summary [place], [place]/[facility] Incident [id number] @ 07/05/2021 17:01 Incident Location [address] Patient CALEB DOVE Female, 71 Years 1950 Patient Address [address] [place] [address] Patient History Congestive Heart Failure (CHF),Chronic Obstructive Pulmonary Disease (COPD),Depression,Hypokalemia,Novel Coronavirus (COVID-19), Patient Allergies Lisinopril, Patient Medications Acetaminophen, Amlodipine, Eliquis, Amiodarone, Albuterol, Hydrocodone, Chief Complaint RESP DISTRESS Disposition Transported No Lights/[place] Dispatch Reason Sick Person Transported To [facility] Narrative ARRIVED TO FIND PT SITTING UPRIGHT IN BED. NURSE REPORTS PT HAS BEEN SHOWING INCREASING RESP DISTRESS THROUGHOUT THE DAY, SUDDENLY GETTING MUCH WORSE APPROX [facility] [address] [place] [address] EMS Patient Care Report Name: CALEB DOVE Room #: 209-P [facility].#: [id number] Admission: 07/05/21 Attend Phys: Román Payton MD Discharge: Date of : 52 Report #: [id number] 20 MINUTES AGO. PT IS BEING PLACED ON CPAP BY P36 M42 ARRIVED. ALS ASSESSMENT VITALS OBTAINED. PT PLACED ON COT, SECURED WITH STRAPS X2X, LOADED WITHOUT INCIDENT. PT BECOME LESS ALERT, PT TAKEN OFF CPAP, VENTALATED WITH BVM. ENROUTE, PT CONDITION UNCHANGED. ARRIVED. PT TAKEN INSIDE ON COT TO ER 12. PT MOVED TO BED WITH 4 PERSON SHEET MOVE RAILS RAISED X2. REPORT GIVEN TO NURSE, PT CARE TRANSFERRED. Initial Vitals @17:20P: 67,R: 16,Pain: 0/10,GCS: 7,SpO2: 79, @17:22P: 80,R: 16,BP: 137/54,Pain: 0/10,GCS: 7,SpO2: 80,Revised Trauma: 10, @PTAP: 85,R: 12,Pain: 0/10,GCS: 8,SpO2: 50, Assessments @17:12MENTAL:Unresponsive,SKIN:Pale,HEENT:Head/Face: No Abnormalities,Eyes: No Abnormalities,Neck/Airway: No Abnormalities,LUNG SOUNDS:General: No Abnormalities,Left Upper: No Abnormalities,Right Upper: No Abnormalities,Left Lower: No Abnormalities,Right Lower: No Abnormalities,ABDOMEN:General: No Abnormalities,Left Upper: No Abnormalities,Right Upper: No Abnormalities,Left Lower: No Abnormalities,Right Lower: No Abnormalities,PELVIS//GI:No Abnormalities,EXTREMITIES:Left Arm: No Abnormalities,Right Arm: No Abnormalities,Left Leg: No Abnormalities,Right Leg: No Abnormalities,PULSE:Radial: 2+ Normal,NEURO:No Abnormalities, Impression Acute Respiratory Distress (Dyspnea) Procedures @17:12 ALS Assessment Response: UnchangedSucceeded @PTACPAP FlowRate: 10 Response: ImprovedSucceeded @17:18 Oxygen FlowRate: 15 Device: Bag Valve Mask (BVM) Response: ImprovedSucceeded @17:20 IV Therapy - Saline Lock 10cc (20 ga) Site: Hand-Left Response: UnchangedSucceeded Timeline CARD BRUSHER,CPAP FlowRate: 10 Response: ImprovedSucceeded, CARD BRUSHER,BP: / M,PULSE: 85,RR: 12 R,SPO2: 50 Ox,ETCO2: ,BG: ,PAIN: 0,GCS: 8, 16:59,Call Received 16:59,Dispatch Notified 17:01,Dispatched 17:02,En Route 17:10,On Scene 17:12,At Patient [address] [address] EMS [facility] Room #: 209-P ADM IN M.R.#: [id number] Admission: 07/05/21 Attend Phys: Román Payton MD Discharge: Date of : 52 Report #: [id number] 17:12,ALS Assessment,Response: UnchangedSucceeded, 17:18,Oxygen FlowRate: 15 Device: Bag Valve Mask (BVM) Response: ImprovedSucceeded, 17:20,IV Therapy - Saline Lock 10cc 20 ga Site: Hand-Left,Response: UnchangedSucceeded, 17:20,BP: / M,PULSE: 67,RR: 16 R,SPO2: 79 Ox,ETCO2: ,BG: ,PAIN: 0,GCS: 7, 17:22,BP: 137/54 M,PULSE: 80,RR: 16 R,SPO2: 80 Ox,ETCO2: ,BG: ,PAIN: 0,GCS: 7, 17:24,Depart Scene 17:25,At Destination 17:34,Call Closed Disclaimer v1.1 Copyright 2021 [employer] This EMS Care Summary contains data elements from the applicable legal record (which may be displayed differently). It is designed to provide pertinent information for the following purposes: continuity of care, clinical quality, and state data reporting. The complete legal record is available to ED staff and administrators of the receiving hospital in [employer]'s Patient Tracker. All data is provided "as is."
[~2021-07-05 17:30] MED LIST changes: +ACETAMINOPHEN325 M1 PO; +DEMADEX20 MG PO; +ELIQUIS2.5 MG PO; +PACERONE 200 M200 M1 PO; +PROTONIX 20 MG20 M1 PO; +PULMICORT FLEX90 MCG INH; +VITAMIN C1000 MG PO; +VITAMIN D325 MC2 PO; +ZINC SULFATE50 MG PO
[2021-07-05 17:35] VITALS: BP 153/60
[2021-07-05 18:15] LABS: HEMOGLOBIN 8.2 gm/dL (12.0-15.0); MCH 29.4 pg (26.0-34.0); MCHC 31.4 g/dL (28.0-37.0); MCV 93.9 fL (80.0-100.0); RBC 2.78 mil/uL (4.20-5.00); RDW 20.1 % (10.5-14.5); WBC 6.1 thou/uL (4.0-11.0)
[2021-07-05 18:22] LABS: ANION GAP 7 mmol/L (7-16); BUN 84 mg/dL (7-18); CALCIUM 8.5 mg/dL (8.5-10.1); CHLORIDE 103 mmol/L (98-107); CO2 28 mmol/L (21-32); CREATININE 2.7 mg/dL (0.6-1.0); GLUCOSE 195 mg/dL (74-106); POTASSIUM 4.6 mmol/L (3.5-5.1); SODIUM 138 mmol/L (136-145)
[2021-07-05 18:27] LABS: BE(vivo) 3.7 mmol/L (-2 to +3); HCO3 31.8 mmol/L (22.0-26.0); PO2 376.9 mmHg (80.0-100.0); pH 7.269 (7.360-7.450); sO2 99.7 % (92.0-98.0)
[2021-07-05 18:28] LABS: PCO2 71.1 mmHg (35.0-45.0)
[2021-07-05 18:28] LABS: URINE BILIRUBIN NEGATIVE (Negative); URINE BLOOD NEGATIVE (Negative); URINE CLARITY SL CLOUDY; URINE COLOR YELLOW; URINE GLUCOSE-RANDOM* NEGATIVE (Negative); URINE KETONES NEGATIVE (Negative); URINE NITRITE-REFLEX NEGATIVE (Negative); URINE PROTEIN (DIPSTICK) 1+ (Negative); URINE SPECIFIC GRAVITY 1.025 (1.005-1.035); URINE UROBILINOGEN 0.2 E.U./dl (0.2-1.0)
[2021-07-05 18:31] LABS: CASTS None Seen /LPF (None Seen); SQUAMOUS 4-10 Moderate /LPF (0-3); URINE LEUKOCYTES-REFLEX 2+ (Negative); URINE RBC 1-2 Rare /HPF (NONE SEEN); URINE WBC-REFLEX 6-15 Few /HPF (0-5)
[2021-07-05 18:31] LABS: ALBUMIN 2.8 g/dL (3.4-5.0); MAGNESIUM 1.9 mg/dL (1.8-2.4); PHOSPHORUS 5.8 mg/dL (2.6-4.7); SALICYLATE < 2.8 mg/dL (2.8-20.0); SGOT 10 U/L (15-37); SGPT 13 U/L (14-59); TOTAL BILIRUBIN 0.3 mg/dL (0.2-1.0); TOTAL PROTEIN 6.6 g/dL (6.4-8.2)
[2021-07-05 18:32] LABS: BACTERIA-REFLEX 1-9 Few /HPF (None Seen); CRYSTALS None Seen /LPF (None Seen)
[2021-07-05 18:39] LABS: AMP/METHAMP Negative (Negative); BARBITURATES Negative (Negative); BENZODIAZEPINES Negative (Negative); COCAINE Negative (Negative); METHADONE Negative (Negative); OPIATES Negative (Negative); PCP Negative (Negative)
[2021-07-05 23:15] LABS: BE(vivo) 4.9 mmol/L (-2 to +3); HCO3 27.5 mmol/L (22.0-26.0); PCO2 32.8 mmHg (35.0-45.0); pH 7.541 (7.360-7.450)
[2021-07-05 23:30] VITALS: BP 153/55
[2021-07-06] VITALS (85 sets, daily range): BP systolic 83–149; BP diastolic 28–98
--- NOTE | 2021-07-06 06:15 | NUR ---
Spoke at length wih pt's authorized contact, Sofi Perez, and updated her on pt's condition. Pt code number given to Tracy Chris and [facility]
[2021-07-06 06:40] LABS: HEMATOCRIT 25.8 % (37.0-47.0); HEMOGLOBIN 8.2 gm/dL (12.0-15.0); MCH 29.7 pg (26.0-34.0); MCHC 31.9 g/dL (28.0-37.0); MCV 93.3 fL (80.0-100.0); RBC 2.77 mil/uL (4.20-5.00); RDW 19.4 % (10.5-14.5); WBC 3.9 thou/uL (4.0-11.0)
[2021-07-06 06:44] LABS: CALCIUM 8.2 mg/dL (8.5-10.1); CREATININE 2.3 mg/dL (0.6-1.0)
[2021-07-06 06:48] LABS: POTASSIUM 3.3 mmol/L (3.5-5.1)
--- NOTE | 2021-07-06 07:18 | NUR ---
PATIENT IS INTUBATED/SEDATED, WILL PLACE ON HOLD. WILL NEED NEW OT ORDERS ONCE PATIENT IS ABLE TO PARTICIPATE.
--- NOTE | 2021-07-06 07:26 | NUR ---
ORDERS FOR EVAL AND TREAT HOWEVER Pt INTUBATED AND SEDATED. WILL PLACE ON HOLD AND AWAIT NEW ORDERS WHEN APPROPRIATE
--- NOTE | 2021-07-06 07:56 | EKG ---
[address] [place] [address] ELECTROCARDIOGRAM REPORT Name: CALEB DOVE Room #: 237-P ADM IN M.R.#: [id number] Admission: 07/05/21 Attend Phys: Román Payton MD Discharge: Date of : 52 Report #: [id number] [facility] ED Test Date: 2021-07-05 Test Time: 17:39:39 Pat Name: CALEB DOVE Department: Room: 237 Gender: F Laboratory Cureman: ALIA : 1950 Requested By: Shashank Crane Order Number: [id number] MD: Jovan Ortega Measurements Intervals [place] Rate: 55 P: -19 ID: [id number] QRS: 4 QRSD: 97 T: 44 QT: 449 QTc: 430 Interpretive Statements Sinus rhythm Prolonged ID interval Anteroseptal infarct, age indeterminate Lateral leads are also involved Compared to ECG 05/31/2021 11:18:06 Myocardial infarct finding now present Electronically Signed On 07-06-2021 7:56:11 CUTTING AND PRINTING MACHINE OPERATOR by Jovan Ortega [email or web address] <ELECTRONICALLY SIGNED> By: Jovan Ortega MD, [facility] 07/06/21 [facility]6 1739 [id number] Jovan Ortega MD, [facility] /EPI
--- NOTE | 2021-07-06 08:36 | NUR ---
PT ARRIVED TO UNIT FROM THE ED AT 0045 WITH NO BELONGINGS. PT ON VENTILATOR, IV FENTANYL AND PROPOFOL INFUSING. CHARGE NURSE SPOKE TO PT DAUGHTER TO UPDATE ON PT STATUS. THIS RN CALLED CONSULT TO DR COLIN AT 0737. NEW ORDERS GIVEN WILL IMPLEMENT. WILL FOLLOW POC.
--- NOTE | 2021-07-06 09:52 | NUR ---
Case opened to follow for dc planning. Pt is a skilled nursing care resident from [facility]. She recently transitioned to ltc from a skilled stay as she was not able to return home. They are holding her bed. She uses a trilogy at the facility and hx of respiratory failure. She is a full code. Her dtrs are her primary contacts. Clinical update provided to admissions at [facility]. Will follow.
--- NOTE | 2021-07-06 13:54 | NUR ---
PICC INSERTION R ARM PREPPED USING CHLOROPREP, PT DRAPPED IN STERILE FASHION. SKIN DRY PRIOR TO NEEDLE INSERTION. 1% LIDOCAINE USED FOR LOCAL. R BRACHIAL VEIN ACCESSED. PICC TRIMMED TO 52CM EXTERNAL 2.5CM TIP LOCATION CONFIRMED USED [employer].
[2021-07-06 16:29] LABS: BE(vivo) -1.3 mmol/L (-2 to +3); HCO3 24.3 mmol/L (22.0-26.0); PCO2 44.7 mmHg (35.0-45.0); pH 7.353 (7.360-7.450); sO2 95.8 % (92.0-98.0)
--- NOTE | 2021-07-06 19:22 | NUR ---
PATIENT BP WAS LOW THIS AM BP MEDICATION WAS HELD PER DOCTOR. PATIENT WAS REMOVED FROM PROPOFOL PER DOCTOR ORDERS. SHE LATER TRY TO EXTUBATER HER SELF AND DOCTOR WAS CALLED AND NEW ORDER GOTTEN AND GIVEN. PATIENT IS A/O AND IS WATCHING TV IN HER ROOM AT THIS TIME. SHE SAID SHE IS COMFORTABLE AND WILL NOT TRY AND PULL THE TUB OUT. MEDICATIONS LEFT THAT WAY. SHE HAS SOFT WRIST RESTRAINTS IN PLACE TO MAKE SURE. SHE IS RESTING IN BED WITH CALL CARBAJAL IN REACH.
[2021-07-07] VITALS (41 sets, daily range): BP systolic 114–178; BP diastolic 53–112
[2021-07-07 05:14] LABS: HEMATOCRIT 27.5 % (37.0-47.0); HEMOGLOBIN 8.9 gm/dL (12.0-15.0); MCH 29.6 pg (26.0-34.0); MCHC 32.3 g/dL (28.0-37.0); MCV 91.6 fL (80.0-100.0); RDW 19.5 % (10.5-14.5); WBC 5.3 thou/uL (4.0-11.0)
[2021-07-07 05:26] LABS: CALCIUM 8.9 mg/dL (8.5-10.1); CREATININE 1.8 mg/dL (0.6-1.0)
--- NOTE | 2021-07-07 11:09 | HC ---
[facility] [place] [address] CONSULTATION Name: CALBE DOVE Room #: 237- ADM IN M.R.#: [id number] Admission: 07/05/21 Attend Phys: Román Payton MD Discharge: Date of : 52 Report #: [id number] THIS REPORT FOR: cc: David Peacock MD, Christopher B. MD Barry, Joseph W. MD ~ DATE OF SERVICE: 07/06/2021 INFECTIOUS DISEASE CONSULTATION ATTENDING PHYSICIAN: Dr. Payton. REASON FOR EVALUATION: Severe pneumonitis complicated by respiratory failure. HISTORY OF PRESENT ILLNESS: Chart reviewed. The patient was examined. This is a 71-year-old woman with significant medical history including diabetes mellitus, complicated by neuropathy, also has known COPD, cardiomyopathy, who actually was hospitalized for 17 days earlier this month with acute COVID-19 infection, complicated by pneumonitis and ARDS. She did require intubation. She was ultimately discharged to a facility. While at the facility, apparently became more dyspneic throughout the day. Subsequently, developed encephalopathy. She was found to be hypoxic. She utilized CPAP and was referred back to the Emergency Room where she was urgently intubated. Initial chest x-ray showed bilateral infiltrates, perhaps more prominent on the right. Initial ABG showed pH of 7.269, pCO2 of 71, pO2 of 376.9 that was on a 100%. Urinalysis did show moderate pyuria, little bacteriuria. Creatinine was 2.7 noted on discharge, it was 1.4. Lactic acid was in normal range of 0.7. Pro-calcitonin less than 0.05. positive coronavirus PCR. Blood cultures collected at time of admission are sterile thus far. MRSA screen was negative. Sputum culture is pending. Rare gram-positive cocci, many PMNs. She was empirically started on therapy with vancomycin and cefepime in addition to corticosteroids. She is quite restless on the ventilator and has required restraints. ALLERGIES: LISINOPRIL. CURRENT MEDICATIONS: Include ipratropium, albuterol inhaler, cefepime, methylprednisolone, dexmedetomidine, ascorbic acid, amlodipine, amiodarone, budesonide, pantoprazole, ____ and ondansetron. PAST MEDICAL HISTORY: As noted above, diabetes mellitus type 2, complicated by peripheral neuropathy, hypertension, history of atrial fibrillation, obstructive sleep apnea, COPD, baseline 3 liters per nasal cannula supplemental oxygen, hyperlipidemia, chronic renal insufficiency, gout, depression, morbid obesity. SOCIAL HISTORY: Nonsmoker. No illicit drug use. No ethanol currently. [address] [address] CONSULTATION Name: CALEB DOVE Room #: [address] [place] [address] IN M.R.#: [id number] Admission: 07/05/21 Attend Phys: Román Payton MD Discharge: Date of : 52 Report #: [id number] FAMILY HISTORY: Noncontributory. REVIEW OF SYSTEMS: Not able to be obtained. PHYSICAL EXAMINATION: GENERAL: She appears chronically ill, undernourished. She is quite distressed at this point, attempting to raise off the bed to get her hands to the ET tube. She is restrained. Appears undernourished. VITAL SIGNS: Temperature afebrile, pulse 66, respirations 17, blood pressure 113/45. SKIN: Warm, dry, no rashes. HEENT: ET, OG tube in place. NECK: Appears to be supple. LUNGS: Bilateral scattered coarse breath sounds. HEART: Somewhat irregular. I do not appreciate a murmur. ABDOMEN: Firm, mildly distended. No peritoneal signs. GENITOURINARY AND RECTAL: Deferred. LABORATORY DATA: As described above. Electrolytes: Sodium 146, potassium 3.3, chloride 109, bicarbonate is 26, anion gap of 11, BUN and creatinine 81 and 2.3. Estimated GFR of 25. CBC: White count 3.9, H and H 8.2 and 25.8, platelets 155. CT of the head without contrast, no acute intracranial abnormalities. ASSESSMENT AND PLAN: Severe pneumonitis complicated by respiratory failure. The patient with underlying lung disease. Also, evidence of multiorgan dysfunction likely on the basis of sepsis as a result of the above. We will continue broad-spectrum therapy. Gram stain of the sputum suggest perhaps gram-positive cocci. I would worry about Staphylococcus in this setting, although the MRSA screen was negative. In addition, I will continue gram-negative coverage with cefepime, adjusted for renal insufficiency. She certainly remains critically ill at this point. Continue to monitor expectantly, at risk for additional complications. Wean off oxygen therapy as allowed. <ELECTRONICALLY SIGNED> By: Matthew Beasley MD 07/07/21 1109 [id number] 46 Matthew Beasley MD /nt
[2021-07-08] VITALS (46 sets, daily range): BP systolic 123–166; BP diastolic 45–111
--- NOTE | 2021-07-08 01:09 | NUR ---
This RN called the provider to clarify discontinuation of Midazolam HCL. An order was received to continue titrating the infusing Meds if the pt needs it. The goal is to titrate off the gtt.
[2021-07-08 04:44] LABS: HEMATOCRIT 25.7 % (37.0-47.0); HEMOGLOBIN 8.1 gm/dL (12.0-15.0); MCH 29.4 pg (26.0-34.0); MCHC 31.7 g/dL (28.0-37.0); MCV 92.7 fL (80.0-100.0); RBC 2.77 mil/uL (4.20-5.00); RDW 20.2 % (10.5-14.5); WBC 12.6 thou/uL (4.0-11.0)
[2021-07-08 04:49] LABS: CALCIUM 8.1 mg/dL (8.5-10.1); CREATININE 1.4 mg/dL (0.6-1.0); POTASSIUM 4.5 mmol/L (3.5-5.1)
--- NOTE | 2021-07-08 11:56 | NUR ---
ICU rounds today, tube feeds will start with water flushes. Per Dr Rodrigues, dc ivf once tube feeds reach goal
--- NOTE | 2021-07-08 12:31 | NUR ---
CM REVIEWED CHART AND SPOKE WITH PT'S NURSE. PT'S CARE WAS DISCUSSED IN ICU ROUNDS THIS DAY. PT CONTINUES VENT INTUBATED AND SEDATED. FIO2 30% PEEP 5. TUBE FEEDS VITAL AF TO BE INITIATED TODAY VIA OG TUBE. PT CONTINUES ON IV CEFEPIME AND VANC. NO WEEKEND DISCHARGE ANTICAPTED. CM UPDATED [facility]. CM FOLLOWING.
--- NOTE | 2021-07-08 19:46 | NUR ---
1944: RN CALLED DR. COLIN AT THIS TIME, NOTIFIED HIM PT SELF EXTUBATED. RT, PRIMARY RN, AND BLOW MOLDING MACHINE OPERATOR AT BEDSIDE. PT SPO2 91%. TEAM PLACING NONREBREATHER. PER DR. COLIN, PLACE HIGH-CARLYN CANNULA OR MASK TO MAINTAIN SPO2 >90%. IF PT APPEARS TO BE TIRING, PLACE BIPAP. RN UPDATED RILEY, PRIMARY RN AND RT AT BEDSIDE.
[2021-07-09] VITALS (38 sets, daily range): BP systolic 74–192; BP diastolic 31–112
--- NOTE | 2021-07-09 01:27 | NUR ---
Pt self extubated at 194407/08/21. This nurse had not yet been in the room to assess pt. Day shift nurse went in at 1924 to give PRN hydralazine. Pts RT was at bedside during self extubation. Immediately following self extubation, pt was suctioned, NRB was placed, fentanyl and precedex were turned off, restraints were DCd, tube feeds were held. Gastric tube was also removed when ETT was removed. Dr. Huffman was notified. SPRAY PAINTING MACHINE OPERATOR Brodie was notified. Pt was A&O x4, only concerns were being anxious about possible reintubation.
--- NOTE | 2021-07-09 03:13 | NUR ---
At 9370 07/09/21 this nurse notified pts daughter Sofi about self extubation event, all questions answered
[2021-07-09 05:42] LABS: CALCIUM 8.8 mg/dL (8.5-10.1); CREATININE 1.4 mg/dL (0.6-1.0); POTASSIUM 4.2 mmol/L (3.5-5.1)
--- NOTE | 2021-07-09 16:36 | NUR ---
SPOKE TO PATIENT DAUGHTER, CLARITZA, VIA TELEPHONE THIS AFTERNOON. NOTIFIED OF DOWNGRADE TO CC TELE STATUS AND HOPEFUL PLAN TO TX OUT OF ICU UNIT TODAY. SPEECH CONSULTED, UNABLE TO PERFOM SWALLOW EVAL PT WAS COUGHING TOO MUCH, PLAN TO REEVALUATE, KEEP NPO STATUS. ISOLATION PRECAUTIONS DISCONTINUED PER DR GALLARDO TODAY.
--- NOTE | 2021-07-09 18:27 | NUR ---
PT NOTIFIED OF UPCOMING TX TO CCU BED 209, AGREEABLE. CALLED REPORT TO CCU RN, NOTIFIED PT DAUGHTER OF TRANSFER. TX TO CCU, ACCOMPANIED BY RN DELIVERY AND THIS RN, ON 3L NC AND TELE MONITOR.
[2021-07-10 03:33] VITALS: BP 165/67
--- NOTE | 2021-07-10 05:51 | NUR ---
Pt. rested quietly at intervals during the night when checked on during frequent rounds. She offers no c/o shortness of air. Voice continues to be hoarse. Turned and repositioned. Bed alarm is on.
[2021-07-10 08:02] VITALS: BP 171/68
[2021-07-10 11:25] VITALS: BP 143/56
[2021-07-10 15:17] VITALS: BP 176/73
[2021-07-10 20:04] VITALS: BP 152/74
[2021-07-10 20:04] LABS: HEMATOCRIT 25.4 % (37.0-47.0); MCH 29.4 pg (26.0-34.0); MCHC 31.5 g/dL (28.0-37.0); MCV 93.1 fL (80.0-100.0); RBC 2.73 mil/uL (4.20-5.00); RDW 19.2 % (10.5-14.5); WBC 10.8 thou/uL (4.0-11.0)
--- NOTE | 2021-07-10 20:14 | NUR ---
ASSUMED CARE OF PATIENT AT 0700. PATIENT'S VOICE HAS IMPROVED SINCE YESTERDAY AND NOT EASILY TRIGGERED TO COUGHING WHILE TALKING. ST ON MONITOR WITH 1ST DEG AV BLOCK. PATIENT TURNED Q2 HOURS. Q6 ACCUCHECKS AND BLOOD SUGARS REMAINED BELOW 200. DENIES ANY CP OR SOA. NON PRODUCTIVE COUGH. FAMILY TO BRING UP TRILOGY FOR OVERNIGHT SLEEP. CONTINUE WITH PLACE OF CARE.
[2021-07-10 20:15] LABS: CREATININE 1.4 mg/dL (0.6-1.0); POTASSIUM 4.1 mmol/L (3.5-5.1)
[2021-07-11 04:13] VITALS: BP 185/69
--- NOTE | 2021-07-11 04:14 | NUR ---
PATIENT AAOX4. HAS DIFFICULTY WITH SPEECH DUE TO ISSUES FROM EXTUBATING HERSELF. SHE IS BREATHING ON 4L NC WITH NO DISTRESS NOTED. FAMILY BROUGHT CPAP MACHINE BUT IT HAS ERROR CODE ON IT WHEN STARTING. HER LUNG SOUNDS ARE COARSE THROUGHOUT. PATIENT IS CONFINED TO BED AT THIS TIME. DENIES PAIN OR NEEDS. WILL CONTINUE TO MONITOR.
[2021-07-11 08:20] VITALS: BP 166/90
[2021-07-11 11:30] VITALS: BP 188/74
--- NOTE | 2021-07-11 11:47 | NUR ---
Clinical updated faxed to Ángel Reyna. PT/OT evals requested as pt is now out of ICU. ST is seeing her for swallowing and diet recommendations. Will follow. Pt does have skilled medicare days available at tx.
--- NOTE | 2021-07-11 11:52 | NUR ---
Pt npo starting day 6. ST recommending to keep npo for now. Rising Na/Cl levels. Would consider clinimix PPN at 100ml/hr until able to start eating
--- NOTE | 2021-07-11 14:37 | NUR ---
Assumed care of pt this AM. Pt is A&O x4, on 4L NC, SR w/ PACs on the monitor. pt denying any pain. Pt remains NPO after failed speech eval this AM. Pt given oral swabs w/ mouthwash/water. Pt granddaughter at bedside visiting. PT/OT to be resumed. Morley in place & patent. High fall precautions in place.
[2021-07-11 16:15] VITALS: BP 179/78
[2021-07-11 16:23] LABS: CALCIUM 8.8 mg/dL (8.5-10.1); CREATININE 1.4 mg/dL (0.6-1.0); POTASSIUM 3.9 mmol/L (3.5-5.1)
[2021-07-11 20:04] VITALS: BP 197/93
--- NOTE | 2021-07-12 03:30 | NUR ---
Assumed pt care at 1900. Pt is alert and oriented. No sign of distress noted. Pt is stable. Elevated blood pressure noted. Pt is on 4l NC. CIPAP is on for sleep. Fall precaution in place. Assessment completed and documented. Scheduled meds administered to pt. No acute event during the night. Continue to monitor. No further needs at this time.
[2021-07-12 04:19] VITALS: BP 184/60
[2021-07-12 07:40] VITALS: BP 189/97
--- NOTE | 2021-07-12 09:24 | NUR ---
Assumed care of pt this AM. Pt is oriented x4, drowsy this AM. Pt needing 4L NC, SR on the monitor. Pt remains w/ NPC & hoarseness. Pt c/o generalized pain, sophie. in belly, states that it's from "all the needle sticks". Pt on PPN @ 60mL/hr. Speech suppose to re-eval pt today. Pt to work w/ PT/OT. High fall precautions in place. Frequent rounding in place.
[2021-07-12 10:13] LABS: CALCIUM 9.9 mg/dL (8.5-10.1); CREATININE 1.2 mg/dL (0.6-1.0); POTASSIUM 4.3 mmol/L (3.5-5.1)
[2021-07-12 11:45] VITALS: BP 180/76
[2021-07-12 16:20] VITALS: BP 178/60
[2021-07-12 19:39] VITALS: BP 194/72
[2021-07-12 21:00] VITALS: BP 175/57
[2021-07-13] VITALS (7 sets, daily range): BP systolic 144–180; BP diastolic 59–106
[2021-07-13 06:04] LABS: ABSOLUTE NEUTROPHILS 6.6 thou/uL (1.4-8.2); HEMATOCRIT 27.9 % (37.0-47.0); HEMOGLOBIN 8.9 gm/dL (12.0-15.0); LYMPHOCYTES 6.7 % (24.0-44.0); MCH 29.7 pg (26.0-34.0); MCHC 31.9 g/dL (28.0-37.0); MCV 93.2 fL (80.0-100.0); MONOCYTES 8.4 % (1.0-8.0); PLATELET COUNT 216 thou/uL (150-400); POLYS 84.9 % (36.0-66.0); RDW 18.9 % (10.5-14.5); WBC 7.8 thou/uL (4.0-11.0)
[2021-07-13 06:26] LABS: ALBUMIN 2.3 g/dL (3.4-5.0); CALCIUM 8.9 mg/dL (8.5-10.1); CREATININE 1.3 mg/dL (0.6-1.0); POTASSIUM 4.1 mmol/L (3.5-5.1); TOTAL BILIRUBIN 0.3 mg/dL (0.2-1.0); TOTAL PROTEIN 5.9 g/dL (6.4-8.2)
--- NOTE | 2021-07-13 09:47 | NUR ---
WOUND CONSULT: THE LEFT BUTTOCKS HAS A QUARTER SIZE APPROX 2 X 2 X 0.1, CLEAN WOUND BED, NO S/S OF INFECTION. THE LEFT INNER THIGH HAS LINIAR LINED WOUNDS SUGGESTIVE OF FRICTION. NO S/S OF INFECTION. THE PATIENT IS OBESE. RECOMMENDSTIONS; -ANTIFUNGAL BARRIER TO LEFT INNER THIGH AND LEFT BUTTOCKS BID. -LOW AIR LOSS PUMP -Q2H TURNING. RN PRESENT.
--- NOTE | 2021-07-13 15:17 | NUR ---
PT NOT MEDICALLY STABLE TO DC THIS DAY. CONTINUE PLAN FOR [facility] UPDATES PRINTED AND FAXED THIS DAY. CM WILL CONTINUE TO FOLLOW.
[2021-07-14] VITALS (7 sets, daily range): BP systolic 156–188; BP diastolic 51–72
--- NOTE | 2021-07-14 02:07 | NUR ---
assumed pt care at 1900, alert and oriented, makes her needs known, sa/pacs on tele, assessments as charted, tpn started as per order, remains on cpap with 4l of oxygen, o2sats stable, no acute distress noted, will continue to monitor
[2021-07-14 06:22] LABS: CALCIUM 8.9 mg/dL (8.5-10.1); CREATININE 1.3 mg/dL (0.6-1.0); MAGNESIUM 2.3 mg/dL (1.8-2.4); PHOSPHORUS 2.8 mg/dL (2.5-4.9); POTASSIUM 4.1 mmol/L (3.5-5.1)
[2021-07-15 01:02] VITALS: BP 177/55
--- NOTE | 2021-07-15 03:47 | NUR ---
assumed pt care at 1900, alert and oriented, makes needs known, soft/hoarse voice still, sr/pacs on telemetry, assessments as charted, meds given as per mar, tpn increased to gal as per orders blood sugars in the 300s despite high dose sliding scale, director life sciences notified, orders adjusted, with fluids infusing per orders, remains on 4l nc during day and cpap-4l at night, no acute distress noted, will continue to monitor per poc
[2021-07-15 05:15] VITALS: BP 165/57
[2021-07-15 06:45] LABS: CALCIUM 8.8 mg/dL (8.5-10.1); CREATININE 1.2 mg/dL (0.6-1.0); MAGNESIUM 2.2 mg/dL (1.8-2.4); PHOSPHORUS 2.8 mg/dL (2.5-4.9); POTASSIUM 3.8 mmol/L (3.5-5.1)
[2021-07-15 08:15] VITALS: BP 171/71
[2021-07-15 12:00] VITALS: BP 154/64
--- NOTE | 2021-07-15 14:39 | NUR ---
CM CONTINUE TO FOLLOW FOR DISCHARGE PLANNING. SHOULD PATIENT BE MEDICALLY STABLE TO DISCHARGE OVER THE WEEKEND SHE WILL RETURN TO HER LTC FACILITY [facility]. PLEASE CALL REPORT TO [phone] AND FAX DISCHARGE ORDERS TO [phone]. PT WILL NEED STRETCHER TRANSPORTATION TO BE SET UP. NON EMERGENT TRANSPORTATION FORM FILLED OUT BY THIS CM AND PLACED ON PTS CHART.
[2021-07-15 16:45] VITALS: BP 164/64
[2021-07-15 19:35] VITALS: BP 152/61
--- NOTE | 2021-07-16 02:33 | NUR ---
SLEPT MOST OF SHIFT WITH CPAP AND 4L 02. DENIES COMPLAINTS OF PAIN OR BREATHING ISSUES. WORKING ON GOALS AND PLAN OF CARE FOR NOC. TPN DISCONTINUED THIS SHIFT PER ORDERS. INSULIN PERAMITERS CHANGED. PROGRESSING SLOWLY. CONTINUE TO ASSES CLOSELY.
[2021-07-16 04:45] VITALS: BP 169/59
[2021-07-16 05:06] LABS: CALCIUM 8.6 mg/dL (8.5-10.1); CREATININE 1.2 mg/dL (0.6-1.0); POTASSIUM 3.8 mmol/L (3.5-5.1)
[2021-07-16 08:00] VITALS: BP 171/59
[2021-07-16 12:00] VITALS: BP 166/58
[2021-07-16 15:59] VITALS: BP 156/59
[2021-07-16 20:30] VITALS: BP 154/59
[2021-07-17 03:10] VITALS: BP 156/54
--- NOTE | 2021-07-17 03:36 | NUR ---
SLEEPING WITH CPAP ON WITH 3L/O2. DENIES COMPLAINTS OF PAIN. ASSIST TO REPOSITIONE EVERY 2-3 HOURS NEEDED FOR COMFORT AND SKIN CARE. CONTINUE TO ASSES CLOSELY. PROGRESSING TOWARDS DISCHARGE GOALS SLOWLY.
[2021-07-17 06:13] LABS: ABSOLUTE NEUTROPHILS 4.4 thou/uL (1.4-8.2); BASOPHILS 0.2 % (0.0-2.0); EOSINOPHILS 1.1 % (0.0-3.0); HEMATOCRIT 25.3 % (37.0-47.0); HEMOGLOBIN 8.1 gm/dL (12.0-15.0); LYMPHOCYTES 13.5 % (24.0-44.0); MCH 29.5 pg (26.0-34.0); MCV 92.2 fL (80.0-100.0); MONOCYTES 7.6 % (1.0-8.0); PLATELET COUNT 222 thou/uL (150-400); POLYS 77.6 % (36.0-66.0); RBC 2.74 mil/uL (4.20-5.00); RDW 18.6 % (10.5-14.5); WBC 5.7 thou/uL (4.0-11.0)
[2021-07-17 06:44] LABS: CREATININE 1.1 mg/dL (0.6-1.0); MAGNESIUM 2.1 mg/dL (1.8-2.4); PHOSPHORUS 3.1 mg/dL (2.5-4.9)
--- NOTE | 2021-07-17 11:15 | NUR ---
TOOK OVER CARE OF THIS PATIENT AT 0700. PT RESTING IN BED. CONTACT PRECAUTIONS REMAIN IN PLACE. PT WEARING 3 L NC; DENIES SOA. PT DENIES PAIN AT THIS TIME. ASSESSMENTS CHARTED. MEDS CHARTED. FAMILY PRESENT AT BEDSIDE. PATIENT DENIES ANY OTHER NEEDS. FALL PRECAUTIONS IN PLACE. CALL LIGHT WITHIN REACH.
[2021-07-17 20:56] VITALS: BP 148/58
--- NOTE | 2021-07-18 04:32 | NUR ---
RECEIVED PATIENT AT 1900H.ASSESSMENT DONE CHARTED.SLEEPS WITH CPAP ON AT 3LPM.MEDS GIVEN PER AUG.TURNING DONE.ISOLATION PRECAUTION OBSERVED.ALL NEEDS ATTENDED.TO CONTINOUSLY MONITOR.
[2021-07-18 05:30] VITALS: BP 146/57
[2021-07-18 09:50] VITALS: BP 145/39
--- NOTE | 2021-07-18 11:10 | NUR ---
WOUND CARE F/U: THE LEFT INNER THIGH AREA HAS IMPROVED. THE LEFT BUTTCKS WELL. NO NEW WOUNDS IDENTIFIED. THE PATIENTS OVERALL CONDITION SEEMS IMPROVED. THE PATIENT HAS HAD GOOD RESULTS USING A LOW AIR LOSS BED PUMP. NO CHANGES TO THE POC TODAY.
[2021-07-18] MEDS ORDERED: VANCOMYCIN HCL125 MG PO (11:36)
[2021-07-18 12:28] VITALS: BP 167/54
--- NOTE | 2021-07-18 12:30 | NUR ---
Called report to ignite twice. Nurse not available, adjunct english instructor Macie stated she would have nurse call me when she is able to receive report.
--- NOTE | 2021-07-18 12:35 | NUR ---
PT MEDICALLY STABLE TO DISCHARGE BACK TO [facility] THIS DAY. THIS CM SPOKE TO PTS DAUGHTER CLARITZA AND SHE IS AWARE. UPDATES AND DISCHARGE ORDERS FAXED TO FACILITY. CHART COPIES. NURSING AWARE. PT WILL TRASFER VIA STRETCHER AT 1300. NO FURTHER CM INTERVENTIONS NEEDED AT THIS TIME.
== END 2021-07-18 14:39 | DRG 208 ==
LOC: ER 17:30 → ICU 19:34 → EROBS 19:34 → ICU 07-06 00:31 → 2N 07-09 18:32
PROVIDERS: Emergency Medicine; Hospitalist; Internal Medicine; Internal Medicine Pulmonary Disease; Nurse Practitioner Family; Specialist; ADMIT Hospitalist; ATTEND Hospitalist
PROC: 5A1945Z Respiratory Ventilation, 24-96 Consecutive Hours (ICD-10-PCS; principal; 2021-07-05)
PROC: 0BH17EZ Insertion of Endotracheal Airway into Trachea, Via Natural or Artificial Opening (ICD-10-PCS; 2021-07-05)
PROC: 02HV33Z Insertion of Infusion Device into Superior Vena Cava, Percutaneous Approach (ICD-10-PCS; 2021-07-06)
PROC: 5A0945A Assistance with Respiratory Ventilation, 24-96 Consecutive Hours, High Flow/Velocity Cannula (ICD-10-PCS; 2021-07-08)
PROC: 5A09357 Assistance with Respiratory Ventilation, Less than 24 Consecutive Hours, Continuous Positive Airway Pressure (ICD-10-PCS; 2021-07-11)
PROC: 5A09357 Assistance with Respiratory Ventilation, Less than 24 Consecutive Hours, Continuous Positive Airway Pressure (ICD-10-PCS; 2021-07-12)
PROC: 5A09357 Assistance with Respiratory Ventilation, Less than 24 Consecutive Hours, Continuous Positive Airway Pressure (ICD-10-PCS; 2021-07-13)
PROC: 5A09357 Assistance with Respiratory Ventilation, Less than 24 Consecutive Hours, Continuous Positive Airway Pressure (ICD-10-PCS; 2021-07-14)
PROC: 5A09357 Assistance with Respiratory Ventilation, Less than 24 Consecutive Hours, Continuous Positive Airway Pressure (ICD-10-PCS; 2021-07-15)
PROC: 5A09357 Assistance with Respiratory Ventilation, Less than 24 Consecutive Hours, Continuous Positive Airway Pressure (ICD-10-PCS; 2021-07-16)
PROC: 5A09357 Assistance with Respiratory Ventilation, Less than 24 Consecutive Hours, Continuous Positive Airway Pressure (ICD-10-PCS; 2021-07-17)
PROC: 5A09357 Assistance with Respiratory Ventilation, Less than 24 Consecutive Hours, Continuous Positive Airway Pressure (ICD-10-PCS; 2021-07-18)
DX: U07.1 COVID-19 (principal); J12.82 Pneumonia due to coronavirus disease 2019; J80 Acute respiratory distress syndrome; N39.0 Urinary tract infection, site not specified; N17.9 Acute kidney failure, unspecified; I50.32 Chronic diastolic (congestive) heart failure; J44.1 Chronic obstructive pulmonary disease with (acute) exacerbation; E87.0 Hyperosmolality and hypernatremia; A04.72 Enterocolitis due to Clostridium difficile, not specified as recurrent; Z68.43 Body mass index [BMI] 50.0-59.9, adult; J44.0 Chronic obstructive pulmonary disease with (acute) lower respiratory infection; I48.0 Paroxysmal atrial fibrillation; E11.42 Type 2 diabetes mellitus with diabetic polyneuropathy; E78.5 Hyperlipidemia, unspecified; N18.30 Chronic kidney disease, stage 3 unspecified; M10.9 Gout, unspecified; E66.01 Morbid (severe) obesity due to excess calories; F32.9 Major depressive disorder, single episode, unspecified; G47.33 Obstructive sleep apnea (adult) (pediatric); E11.22 Type 2 diabetes mellitus with diabetic chronic kidney disease; I27.20 Pulmonary hypertension, unspecified; D63.8 Anemia in other chronic diseases classified elsewhere; D64.89 Other specified anemias; I12.9 Hypertensive chronic kidney disease with stage 1 through stage 4 chronic kidney disease, or unspecified chronic kidney disease; B96.1 Klebsiella pneumoniae [K. pneumoniae] as the cause of diseases classified elsewhere; E87.8 Other disorders of electrolyte and fluid balance, not elsewhere classified; Z90.710 Acquired absence of both cervix and uterus; Z88.8 Allergy status to other drugs, medicaments and biological substances; Z79.01 Long term (current) use of anticoagulants; Z99.81 Dependence on supplemental oxygen
CPT/HCPCS: 10078; 10081

== ENCOUNTER 2021-08-02 17:10 | Inpatient (IN) | payer OTHER ==
[~2021-08-02] VITALS: Ht 157.5 cm; Wt 144.0 kg
--- NOTE | ~2021-08-02 | EMS ---
[address] [address] EMS Patient Care Report Name: CALEB DOVE Room #: 244-P ADM IN M.R.#: [id number] Admission: 08/02/21 Attend Phys: Román Payton MD Discharge: Date of : 52 Report #: [id number] THIS REPORT FOR: //name// Report Transmitted: 08/03/2021 12:49 EMS Care Summary [place], [place]/[facility] Incident [id number] @ 08/02/2021 16:30 Incident Location [address] Patient CALEB DOVE Female, 71 Years 1950 Patient Address [facility] [address] [place] [address] Patient History Congestive Heart Failure (CHF),Chronic Obstructive Pulmonary Disease (COPD),Morbid Obesity,Pneumonia,Depression,Gout,Hypokalemia,Type 2 Diabetes,Novel Coronavirus (COVID-19), Patient Allergies Lisinopril, Patient Medications Amlodipine, Acetaminophen, Eliquis, Tradjenta, Colace, Albuterol, Senna, Glipizide, Prednisone, Amiodarone, Insulin, Hydralazine, Metoprolol, Hydrocodone, Torsemide, Chief Complaint Hyperglycemia Disposition Transported No Lights/[place] Reason Breathing Problem Transported To [address] [address] EMS Patient Care Report Name: CALEB DOVE Room #: 244-P [facility] IN .R.#: [id number] Admission: 08/02/21 Attend Phys: Román Payton MD Discharge: Date of : 52 Report #: [id number] Narrative Called for a sick. Upon arrival, pt was lying asleep in bed with her CPAP type device on at the correction. DE staff was not very helpful as the common answer was we are not sure why you are here other than she has some critical labs. After further digging it was determined that her last known well was about 2 days ago, her BS was over 700 and she took her O2 off last night and when she does that she becomes altered. A chest X-ray performed this morning also showed a pneumonia. She was moved over to the EMS cot and loaded into the ambulance w/o incident. Vitals obtained x 2. O2 cont. En route: no changes. Pt did respond to her name and would stick out her tongue on command. RR to the ER. Arrived: pt taken to ER #10 and moved to their bed w/o incident Pt care & report to ER staff. Initial Vitals @17:02P: 64,R: 28,BP: 164/62,Pain: 0/10,GCS: 14,Glucose: 700,SpO2: 98,Revised Trauma: 12, @16:58P: 128,R: 28,BP: 103/51,Pain: 0/10,GCS: 14,SpO2: 97,Revised Trauma: 12, Assessments @16:38MENTAL:Confused,Person Oriented,SKIN:HEENT:LUNG SOUNDS:Left Upper: Other,Right Upper: Other,Right Lower: Other,Left Lower: Other,ABDOMEN:Left Upper: Other,Right Upper: Other,Right Lower: Other,Left Lower: Other,PELVIS//GI:EXTREMITIES:Left Arm: No Abnormalities,Right Arm: No Abnormalities,Left Leg: No Abnormalities,Right Leg: No Abnormalities,PULSE:Radial: 2+ Normal,NEURO:No Abnormalities, Impression Diabetic Hyperglycemia Procedures @16:38 ALS Assessment Response: UnchangedSucceeded @PTAOxygen FlowRate: 4 Device: Nasal Cannula (NC) Response: UnchangedSucceeded @PTAIV Therapy - Saline Lock cc (22 ga) Site: Hand-Left Response: UnchangedSucceeded @16:45 Stretcher Response: Unchanged Timeline TIP CEMENTER,Oxygen FlowRate: 4 Device: Nasal Cannula (NC) Response: UnchangedSucceeded, TIP CEMENTER,IV Therapy - Saline Lock cc 22 ga Site: Hand-Left,Response: UnchangedSucceeded, 16:28,Call Received 16:28,Dispatch Notified 16:30,Dispatched 16:30,En Route 16:36,On Scene [address] [address] EMS Patient Care Report Name: CALEB DOVE Room #: 244-P [facility] IN M.R.#: [id number] Admission: 08/02/21 Attend Phys: Román Payton MD Discharge: Date of : 52 Report #: [id number] 16:38,At Patient 16:38,ALS Assessment,Response: UnchangedSucceeded, 16:45,Stretcher,Response: Unchanged 16:58,BP: 103/51 M,PULSE: 128,RR: 28 R,SPO2: 97 Ox,ETCO2: ,BG: ,PAIN: 0,GCS: 14, 16:59,Depart Scene 17:01,At Destination 17:02,BP: 164/62 M,PULSE: 64,RR: 28 R,SPO2: 98 Ox,ETCO2: ,B,PAIN: 0,GCS: 14, 17:16,Call Closed Disclaimer v1.1 Copyright 2021 [employer] This EMS Care Summary contains data elements from the applicable legal record (which may be displayed differently). It is designed to provide pertinent information for the following purposes: continuity of care, clinical quality, and state data reporting. The complete legal record is available to ED staff and administrators of the receiving hospital in [employer]'s Patient Tracker. All data is provided "as is."
--- NOTE | ~2021-08-02 | EEG ---
[facility] [place] [address] ELECTROENCEPHALOGRAM Name: CALEB DOVE Room #: 216-P ADM IN M.R.#: [id number] Admission: 08/02/21 Attend Phys: Román Payton MD Discharge: Date of : 52 Report #: [id number] THIS REPORT FOR: //name// This patient is having some tremors. EEG was done to evaluate the possibility of seizure. EEG was done by placing the electrode by standard 10-20 system of electrode placement. Both referential and sequential montages were used for recording. Background activity in this patient's EEG appeared to be about 8-9 Hz and 30 microvolt. Photic stimulation is unremarkable. The patient went to sleep and that is associated with bilateral slowing and vertex sharp waves. Throughout the record, no active epileptiform activity was noticed. IMPRESSION: This patient's EEG is intermixed with theta range slowing on both sides. That is a nonspecific abnormality, which can occur with encephalopathy, effect of psychotropic medication, dementia, etc. Clinical correlation is recommended. No active epileptiform activity was noticed during this record. Thank you very much for this referral. By: [id number] Albaro Banda MD /nt
--- NOTE | ~2021-08-02 | HC ---
[facility] [place] [address] CONSULTATION Name: CALEB DOVE Room #: 216-P ADM IN M.R.#: [id number] Admission: 08/02/21 Attend Phys: Román Payton MD Discharge: Date of : 52 Report #: [id number] THIS REPORT FOR: cc: David Peacock MD, Christopher B. MD Khosla,Albaro Alanis MD ~ DATE OF SERVICE: 08/08/2021 HISTORY OF PRESENT ILLNESS: A 71-year-old female patient who was evaluated by me for tremor. The patient is a poor historian. She said she has some tremor in the baseline, but it has become worse. She said she was walking at home with a walker. She was admitted here with numerous medical issues and she is being followed by multiple physicians. REVIEW OF SYSTEMS: Positive for altered mental status, which is when she came in. She is better. She has elevated blood sugar. She has a history of neuropathy, atrial fibrillation. She is on anticoagulation. She has a history of hypertension. She has a history of sleep apnea and looks like the compliance is poor. She has COPD, hyperlipidemia. She has chronic kidney disease. She has a history of a hysterectomy, gout, depression, renal failure, chronic congestive heart failure, morbid obesity, weakness in all 4 extremities, and noncompliance. She moves legs very little. She moves her arms some, but she said this is her baseline. She denies any eye, ENT symptoms. She denies any , musculoskeletal, constitutional, dermatological, hematological symptoms. PAST MEDICAL HISTORY: Positive for noncompliance and COPD. FAMILY HISTORY: Negative for early age stroke. SOCIAL HISTORY: She says she does not drink any alcohol. She does not know of any relationship of this tremor. PHYSICAL EXAMINATION: The patient's examination indicates she is alert. She knew what month it is. She could not tell me the exact date. She know which hospital she is in. Cranial nerve examination II-XII looks unremarkable. She has a normal speech. She moved all 4 extremities. She is weak in all 4 extremities. She said this is her baseline. Her reflexes are not elicitable in the lower extremity and is barely elicitable in the upper extremities. Her position sense is intact in the lower extremities. She is morbidly obese. Her hearing and vision looks adequate. She could not cooperate with the fundus examination. There is no meningeal sign. There is no carotid bruit. She still has respiratory difficulty. Cardiac examination, she has a history of atrial fibrillation. Her pulses are difficult to feel and does not appear to be much edema. Her last blood pressure is 151/43. Temperature is 98, pulse is 70. LABORATORY DATA: White count is 6.3. She did [place] [address] CONSULTATION Name: CALEB DOVE Room #: 216-P [facility] IN M.R.#: [id number] Admission: 08/02/21 Attend Phys: Román Payotn MD Discharge: Date of : 51 Report #: [id number]. IMPRESSION: The tremor is probably because of metabolic problems, which became aggravated. However, this patient is on Eliquis and she has hyperosmolar state. These all exclude any central nervous system pathology by doing a CT and EEG. I also ordered a TSH. If that is negative, then we need to watch to see if this tremor become better with improvement in her metabolic status. I discussed her options with her and that is what she wants to do. Thank you very much for this referral. By: 1630 [id number] Albaro Banda MD /nt
--- NOTE | ~2021-08-02 | EMS ---
[address] [address] EMS Patient Care Report Name: CALEB DOVE Room #: 216-P ADM IN M.R.#: [id number] Admission: 08/02/21 Attend Phys: Román Payton MD Discharge: Date of : 51 Report #: [id number] THIS REPORT FOR: //name// Report Transmitted: 08/09/2021 15:39 EMS Care Summary [place], [place]/[facility] Incident [id number] @ 08/02/2021 16:30 Incident Location [address] D[address] Patient CALEB DOVE Female, 71 Years 1950 Patient Address [facility] [address] [place] [address] Patient History Congestive Heart Failure (CHF),Chronic Obstructive Pulmonary Disease (COPD),Morbid Obesity,Pneumonia,Depression,Gout,Hypokalemia,Type 2 Diabetes,Novel Coronavirus (COVID-19), Patient Allergies Lisinopril, Patient Medications Amlodipine, Acetaminophen, Eliquis, Tradjenta, Colace, Albuterol, Senna, Glipizide, Prednisone, Amiodarone, Insulin, Hydralazine, Metoprolol, Hydrocodone, Torsemide, Chief Complaint Hyperglycemia Disposition Transported No Lights/Lane Dispatch Reason Breathing Problem Transported To [address] [address] EMS Patient Care Report Name: CALEB DOVE Room #: 216-P [facility] IN .R.#: [id number] Admission: 08/02/21 Attend Phys: Román Payton MD Discharge: Date of : 52 Report #: [id number] Narrative Called for a sick. Upon arrival, pt was lying asleep in bed with her CPAP type device on at the half-way. HI staff was not very helpful as the common answer was we are not sure why you are here other than she has some critical labs. After further digging it was determined that her last known well was about 2 days ago, her BS was over 700 and she took her O2 off last night and when she does that she becomes altered. A chest X-ray performed this morning also showed a pneumonia. She was moved over to the EMS cot and loaded into the ambulance w/o incident. Vitals obtained x 2. O2 cont. En route: no changes. Pt did respond to her name and would stick out her tongue on command. RR to the ER. Arrived: pt taken to ER #10 and moved to their bed w/o incident Pt care & report to ER staff. Initial Vitals @17:02P: 64,R: 28,BP: 164/62,Pain: 0/10,GCS: 14,Glucose: 700,SpO2: 98,Revised Trauma: 12, @16:58P: 128,R: 28,BP: 103/51,Pain: 0/10,GCS: 14,SpO2: 97,Revised Trauma: 12, Assessments @16:38MENTAL:Person Oriented,Confused,SKIN:HEENT:LUNG SOUNDS:Left Lower: Other,Right Lower: Other,Right Upper: Other,Left Upper: Other,ABDOMEN:Left Lower: Other,Right Lower: Other,Right Upper: Other,Left Upper: Other,PELVIS//GI:EXTREMITIES:Left Arm: No Abnormalities,Right Arm: No Abnormalities,Left Leg: No Abnormalities,Right Leg: No Abnormalities,PULSE:Radial: 2+ Normal,NEURO:No Abnormalities, Impression Diabetic Hyperglycemia Procedures @16:38 ALS Assessment Response: UnchangedSucceeded @PTAOxygen FlowRate: 4 Device: Nasal Cannula (NC) Response: UnchangedSucceeded @PTAIV Therapy - Saline Lock cc (22 ga) Site: Hand-Left Response: UnchangedSucceeded @16:45 Stretcher Response: Unchanged Timeline DIESEL POWERPLANT SUPERVISOR,Oxygen FlowRate: 4 Device: Nasal Cannula (NC) Response: UnchangedSucceeded, DIESEL POWERPLANT SUPERVISOR,IV Therapy - Saline Lock cc 22 ga Site: Hand-Left,Response: UnchangedSucceeded, 16:28,Call Received 16:28,Dispatch Notified 16:30,Dispatched 16:30,En Route 16:36,On Scene [address] [address] EMS Patient Care Report Name: CALBE DOVE Room #: 216-P [facility] IN M.R.#: [id number] Admission: 08/02/21 Attend Phys: Román Payton MD Discharge: Date of : 51 Report #: [id number] 16:38,At Patient 16:38,ALS Assessment,Response: UnchangedSucceeded, 16:45,Stretcher,Response: Unchanged 16:58,BP: 103/51 M,PULSE: 128,RR: 28 R,SPO2: 97 Ox,ETCO2: ,BG: ,PAIN: 0,GCS: 14, 16:59,Depart Scene 17:01,At Destination 17:02,BP: 164/62 M,PULSE: 64,RR: 28 R,SPO2: 98 Ox,ETCO2: ,B,PAIN: 0,GCS: 14, 17:16,Call Closed Disclaimer v1.1 Copyright 2021 [employer] This EMS Care Summary contains data elements from the applicable legal record (which may be displayed differently). It is designed to provide pertinent information for the following purposes: continuity of care, clinical quality, and state data reporting. The complete legal record is available to ED staff and administrators of the receiving hospital in [employer] Patient Tracker. All data is provided "as is."
[~2021-08-02 17:10] MED LIST changes: +VANCOMYCIN HCL125 MG PO
[2021-08-02 17:12] VITALS: BP 193/82
[2021-08-02 17:36] LABS: HEMATOCRIT 28.2 % (37.0-47.0); MCH 29.4 pg (26.0-34.0); MCHC 31.9 g/dL (28.0-37.0); MCV 92.1 fL (80.0-100.0); PLATELET COUNT 282 thou/uL (150-400); RBC 3.06 mil/uL (4.20-5.00); RDW 17.9 % (10.5-14.5); WBC 7.4 thou/uL (4.0-11.0)
[2021-08-02 17:52] LABS: BE(vivo) -5.5 mmol/L (-2 to +3); HCO3 22.8 mmol/L (22.0-26.0); PCO2 60.2 mmHg (35.0-45.0); PO2 101.8 mmHg (80.0-100.0); pH 7.196 (7.360-7.450); sO2 96.2 % (92.0-98.0)
[2021-08-02] MEDS ORDERED: PREDNISONE 20 M20 MG PO (17:57)
[2021-08-02] MEDS ORDERED: NOVOLOG100 UNIT/1 SUBQ (17:58)
[2021-08-02] MEDS ORDERED: PULMICORT0.25 MG/3 INH (17:59)
[2021-08-02 18:00] LABS: ALBUMIN 2.9 g/dL (3.4-5.0); CALCIUM 8.4 mg/dL (8.5-10.1); CREATININE 4.1 mg/dL (0.6-1.0); TOTAL BILIRUBIN 0.2 mg/dL (0.2-1.0); TOTAL PROTEIN 7.1 g/dL (6.4-8.2)
[2021-08-02] MEDS ORDERED: IPRAT-ALBUT 0.5-3 ML INH (18:00)
[2021-08-02 18:09] LABS: ANISOCYTOSIS 1+; POTASSIUM 6.4 mmol/L (3.5-5.1)
[2021-08-02 18:43] LABS: URINE BILIRUBIN NEGATIVE (Negative); URINE BLOOD 1+ (Negative); URINE CLARITY CLEAR; URINE COLOR YELLOW; URINE GLUCOSE-RANDOM* 2+ (Negative); URINE KETONES NEGATIVE (Negative); URINE NITRITE-REFLEX NEGATIVE (Negative); URINE PROTEIN (DIPSTICK) 2+ (Negative); URINE SPECIFIC GRAVITY 1.025 (1.005-1.035); URINE UROBILINOGEN 0.2 E.U./dl (0.2-1.0)
[2021-08-02 18:46] LABS: URINE LEUKOCYTES-REFLEX 3+ (Negative)
[2021-08-02 18:48] LABS: PHOSPHORUS 6.5 mg/dL (2.5-4.9)
[2021-08-02 18:57] LABS: CASTS None Seen /LPF (None Seen); SQUAMOUS 4-10 Moderate /LPF (0-3); URINE WBC-REFLEX >25 Many /HPF (0-5)
[2021-08-02 18:58] LABS: BACTERIA-REFLEX >30 Many /HPF (None Seen); CRYSTALS None Seen /LPF (None Seen); URINE RBC 3-10 Few /HPF (NONE SEEN); YEAST-REFLEX Present (None Seen)
[2021-08-02 20:34] LABS: CALCIUM 8.6 mg/dL (8.5-10.1)
[2021-08-02 20:46] LABS: POTASSIUM 6.5 mmol/L (3.5-5.1)
[2021-08-02 20:53] VITALS: BP 161/57
[2021-08-02 22:19] VITALS: BP 110/35
[2021-08-02 22:41] VITALS: BP 123/44
[2021-08-02 23:11] VITALS: BP 108/31
--- NOTE | 2021-08-02 23:17 | NUR ---
RECEIVED REPORT FROM ER NURSE. PT ARRIVED TO ICU ROOM 244 AROUND 2230. PT SETTLED IN TO BED. INSULIN DRIP INFUSING AT 12.3 U/HR UPON ARRIVAL. BG CHECKED > 500. INSULIN DRIP TITRATED UP PER PROTOCOL. WILL MONITOR CLOSELY.
[2021-08-02 23:41] VITALS: BP 95/29
[2021-08-03] VITALS (22 sets, daily range): BP systolic 88–158; BP diastolic 29–95
[2021-08-03 00:52] LABS: CALCIUM 8.2 mg/dL (8.5-10.1); CREATININE 4.2 mg/dL (0.6-1.0)
[2021-08-03 00:55] LABS: POTASSIUM 5.4 mmol/L (3.5-5.1)
--- NOTE | 2021-08-03 01:20 | NUR ---
GLUCOSE STILL >500, BUT TRENDING DOWN SINCE PT WAS IN THE ER. SBP 80S-100S. UPDATED TAMIR JACOBO NP FOR HOSPITALIST. WILL CONTINUE INSULIN DRIP AND ADMINISTER ALBUMIN PER ORDER. WILL MONITOR CLOSELY.
--- NOTE | 2021-08-03 05:30 | NUR ---
UPDATED TAMIR JACOBO (JEWELRY REPAIRER) ON PT LABS, LOW URINE OUTPUT, BP. GLUCOSE NOW IN 300S. DECREASED INSULIN DRIP RATE PER JEWELRY REPAIRER'S REQUEST. PER TAMIR, HAVE RENAL PHYSICIAN ADDRESS FLUID BALANCE TODAY, PARTICULARLY REGARDING HIGH BNP AND LOW URINE OUTPUT. WILL CONTINUE TO MONITOR CLOSELY. PT NOT PROGRESSING WELL TOWARD POC GOALS.
[2021-08-03 06:24] LABS: HEMATOCRIT 24.7 % (37.0-47.0); HEMOGLOBIN 7.8 gm/dL (12.0-15.0); MCH 29.7 pg (26.0-34.0); MCHC 31.7 g/dL (28.0-37.0); MCV 93.7 fL (80.0-100.0); RBC 2.63 mil/uL (4.20-5.00); RDW 17.3 % (10.5-14.5); WBC 6.7 thou/uL (4.0-11.0)
--- NOTE | 2021-08-03 06:28 | NUR ---
71-year-old female sent to the ED from [facility], for altered mental status, elevated blood sugar and abnormal labs. patient was alert and oriented x3, glucose greater than 500 in the ED. 2 L of oxygen via nasal cannula which she is normally on. History of diabetes, hypertension, A. fib, chronic kidney disease stage III. She was here earlier in July 2021 and was discharged back to [facility]. She has daughter bridgette # [phone] and daughter brandon [phone]. Patient has cares provided for her at the facility . She has wheelchair, oxygen, trilogy. Patient is currently in the ICU on insulin drip, bipap and oxygen 4L nc. Anticipated when she is medically stable to discharge back to [facility].
[2021-08-03 06:42] LABS: CALCIUM 8.2 mg/dL (8.5-10.1); CREATININE 4.2 mg/dL (0.6-1.0); POTASSIUM 5.1 mmol/L (3.5-5.1)
--- NOTE | 2021-08-03 08:06 | EKG ---
[place] [address] [facility] [place] [address] ELECTROCARDIOGRAM REPORT Name: CALEB DOVE Room #: 244-P ADM IN M.R.#: [id number] Admission: 08/02/21 Attend Phys: Román Payton MD Discharge: Date of : 52 Report #: [id number] [facility] ED Test Date: 2021-08-02 Test Time: 17:42:35 Pat Name: CALEB DOVE Department: Room: 244 Gender: F Director Foundation: marino : 1950 Requested By: Kate Dinh Order Number: [id number] MD: Jovan Ortega Measurements Intervals [place] Rate: 62 P: -6 LA: 249 QRS: 76 QRSD: 105 T: 58 QT: 411 QTc: 418 Interpretive Statements Sinus rhythm Prolonged LA interval LAE, consider biatrial enlargement Low voltage, precordial leads Abnormal R-wave progression, late transition Compared to ECG 07/05/2021 17:39:39 Low QRS voltage now present ST (T wave) deviation now present Myocardial infarct finding no longer present Electronically Signed On 08-03-2021 8:06:09 HIGH PRESSURE KETTLE OPERATOR by Jovan Ortega [email or web address] <ELECTRONICALLY SIGNED> By: Jovan Ortega MD, [facility] 08/03/21805 41 41 Jovan Ortega MD, [facility] /EPI
--- NOTE | 2021-08-03 10:11 | NUR ---
WOUND CONSULT: THE PANNOUS AREA(S) ARE CONSISTANT WITH A FUNGAL ETIOLOGY. THE STAFF IS CURRENTLY USING INTERDRY. THE LEFT INNER THIGH HAS AN AREA THAT IS CONSISTANT WITH MECHANICAL PRESSURE INJURY FROM THE PATIENT'S HOOD CATHETER AND OBESITY. THE BILATERAL LE HAS VERY DRY/FLACKY SKIN FROM TOES TO CALF. THE RN WILL ASK THE HOSPITALIST OPINION RELATED TO AN RN FOR AMLACTIN LOTION. RECOMMENDATIONS- -APPLY ANTIFUNGAL BARRIER CREAM TO THE BILATERAL INNER THIGH AND APPLY ABD PADS TO THE INNER THIGHS BILATERALLY. -BARRIER CREAM TO THE ENTIRE BUILATERAL BUTTOCKS REGION. RN PRESENT.
--- NOTE | 2021-08-03 13:13 | 2DMMODE ---
[facility] [address] [place] [address] 2 D/M-MODE ECHOCARDIOGRAM Name: CALEB DOVE Room #: 244-P ADM IN M.R.#: [id number] Admission: 08/02/21 Attend Phys: Román Payton MD Discharge: Date of : 52 Report #: [id number] THIS REPORT FOR: cc: David Peacock MD, Christopher B. MD Santiago, Patrick MD [facility] ~ ADDENDUM APPROVED REPORT Study performed: 08/03/2021 11:06:55 EXAM: Comprehensive 2D, Doppler, and color-flow Echocardiogram Patient Location: ICU Room #: 244 Status: routine BSA: 2.32 HR: 50 bpm BP: 116/93 mmHg Rhythm: NSR Other Information Study Quality: Fair/Poor. Poor doppler angles Technically limited study due to morbid obesity. Indications CHF. Hx: PAF, COPD. 2D Dimensions IVSd: 11.34 (7-11mm) LVOT Diam: 20.02 (18-24mm) LVDd: 47.65 mm PWd: 10.30 (7-11mm) Ascending Ao: 33.81 (22-36mm) LVDs: 34.31 (25-40mm) Left Atrium: 49.39 (27-40mm) Aortic Root: 31.11 mm Aortic Valve AoV Peak Eyal.: 1.49 m/s AO Peak Gr.: 8.85 mmHg LVOT Max P.55 mmHg LVOT Max V: 1.07 m/s EVANGELINA Vmax: 2.26 cm2 Mitral Valve E/A Ratio: 2.0 [facility] [address] [place] [address] 2 D/M-MODE ECHOCARDIOGRAM Name: JESSICA DOVENDA Room #: 244-P [facility] IN ..#: [id number] Admission: 08/02/21 Attend Phys: Román Payton MD Discharge: Date of : 51 Report #: [id number] MV Decel. Time: 220.61 ms MV E Max Eyal.: 1.37 m/s MV A Eyal.: 0.67 m/s MV PHT: 63.98 ms Pulmonary Valve PV Peak Eyal.: 1.08 m/s PV Peak Gr.: 4.67 mmHg Tricuspid Valve TR Peak Eyal.: 3.13 m/s RAP Estimate: 15.00 mmHg TR Peak Gr.: 39.20 mmHg PA Pressure: 44.00 mmHg Left Ventricle The left ventricle is normal size. There is normal LV segmental wall motion. There is normal left ventricular wall thickness. Left ventricular systolic function is normal. LVEF is 60%. Grade II - pseudonormal filling dynamics. Right Ventricle Right ventricle is dilated. The right ventricular systolic function is low normal. Atria Biatrial enlargement. Aortic Valve The aortic valve is normal in structure; mildly sclerotic. No aortic regurgitation is present. There is no aortic valvular stenosis. Mitral Valve The mitral valve is normal in structure. Mild mitral annular calcification. Mild mitral regurgitation. Tricuspid Valve The tricuspid valve is normal in structure. Moderate tricuspid regurgitation. Estimated PAP is 40-45mmHg. Pulmonic Valve The pulmonary valve is normal in structure. Trace pulmonic regurgitation. Great Vessels The aortic root is normal in size. The ascending aorta is normal in size. IVC is dilated and collapses <50% with [facility] [address] [place] [address] 2 D/M-MODE ECHOCARDIOGRAM Name: CALEB DOVE Room #: 244-P [facility] IN M.R.#: [id number] Admission: 08/02/21 Attend Phys: Román Payton MD Discharge: Date of : 52 Report #: [id number] inspiration. Pericardium There is no pericardial effusion. Left pleural effusion noted. <Conclusion> Normal left ventricle size/wall thickness Ejection fraction 60% Grade 2 diastolic dysfunction Right ventricle mildly dilated, normal systolic function Mild biatrial enlargement Normal aortic valve structure and function Mild mitral valve insufficiency Moderate tricuspid valve insufficiency Pulmonary systolic pressure estimated 40-45 mmHg No pericardial effusion Normal aortic root size. <ELECTRONICALLY SIGNED> By: Jovan Ortega MD, [facility] 08/03/21 1313 12 1313 Jovan Ortega MD, FACC /INF
[2021-08-03 14:59] LABS: CALCIUM 8.5 mg/dL (8.5-10.1); POTASSIUM 5.3 mmol/L (3.5-5.1)
[2021-08-03 15:05] LABS: % SATURATION 21 % (20-39); IRON 41 ug/dL (50-170); TIBC 198 ug/dL (250-450)
[2021-08-03 15:33] LABS: FOLIC ACID 6.3 ng/mL (8.6-58.9)
[2021-08-04] VITALS (8 sets, daily range): BP systolic 55–147; BP diastolic 20–58
--- NOTE | 2021-08-04 07:18 | NUR ---
Pt became restless this morning, she pulled her peripheral IV access and kept taking off her BIPAP and spo2 monitor. she asked to be released to go home. pt refused to keep her BP cuff on. pt was educated about her condition and reasons for admission, pt needs frequent re-orientation to stay calm. Pt is a&o to self, place and time.
--- NOTE | 2021-08-04 10:46 | NUR ---
Discussed during los with the attending physician, she will possible be able to move out of icu today. requiring bipap at hs and oxygen per nasal cannula Discharge back to [facility] when medically stable. Spoke with her daughter bridgette, no concerns or needs voice. Will cont following as needed.
[2021-08-04 16:27] LABS: HEMATOCRIT 26.3 % (37.0-47.0); HEMOGLOBIN 8.5 gm/dL (12.0-15.0); MCH 29.6 pg (26.0-34.0); MCHC 32.5 g/dL (28.0-37.0); MCV 91.1 fL (80.0-100.0); RBC 2.89 mil/uL (4.20-5.00); RDW 17.7 % (10.5-14.5); WBC 8.5 thou/uL (4.0-11.0)
[2021-08-04 16:37] LABS: MAGNESIUM 1.9 mg/dL (1.8-2.4); POTASSIUM 5.4 mmol/L (3.5-5.1)
--- NOTE | 2021-08-04 16:50 | NUR ---
PT TRANSFERRED OUT OF ICU TO CCU ROOM 213. PT WAS OFF INSULIN GTT SINCE 2/2 EVENING AND WAS PUT ON LONG-ACTING AND PO MEDICATIONS FOR DM MAINTENANCE. PT APPETITE HAS BEEN GOOD TODAY AND VS REMAIN STABLE. PT HAS BEEN RESTLESS AND FREQUENTLY PICKS/PULLS AT DEVICES AND EQUIPMENT. PT STATED NUMEROUS TIMES THAT SHE IS "READY TO GO HOME." PT'S TRILOGY WAS BROUGHT FROM [facility] AND IS WITH HER BELONGINGS. REPORT WAS GIVEN TO CCU RN AND PT WAS TRANSPORTED BY [facility]. WILL CONTINUE TO MONITOR AND FOLLOW POC.
--- NOTE | 2021-08-04 17:24 | NUR ---
RECEIVED REPORT FROM MATTHEW IN THE ICU. PATIENT CAME TO UNIT AT 1600. VITAL SIGNS OBTAINED. SUPERVISOR OF WAY PLACED ON PATIENT. PATIENT ALERT TO SELF, FIDGETING WITH GOWN AND CARDIAC WIRES. ICU STATED THE PATIENT REMOVED 2 IVS PRIOR, CURRENT IV IS IN RIGHT FOREARM AND SECURED WITH COBAN. PATIENT DENIES PAIN.
[2021-08-05 05:19] LABS: CALCIUM 8.1 mg/dL (8.5-10.1); CREATININE 3.8 mg/dL (0.6-1.0); MAGNESIUM 1.8 mg/dL (1.8-2.4); POTASSIUM 5.3 mmol/L (3.5-5.1)
[2021-08-05 05:22] LABS: HEMATOCRIT 24.2 % (37.0-47.0); HEMOGLOBIN 7.9 gm/dL (12.0-15.0); MCH 29.9 pg (26.0-34.0); MCHC 32.6 g/dL (28.0-37.0); MCV 91.6 fL (80.0-100.0); RBC 2.65 mil/uL (4.20-5.00); RDW 18.2 % (10.5-14.5); WBC 7.8 thou/uL (4.0-11.0)
--- NOTE | 2021-08-05 06:50 | NUR ---
DURING THIS SHIFT PATIENT WAS AAOX1 AT BEST. VERY DISORGANIZED AND IRRITABLE. UNABLE TO CPMPLY WITH SIMPLE COMMANDS. REFUSED TO WEAR TELEMETRY BOX. REPEATEDLY TAKES OFF HER CLOTHING. WAS TRYIG TO CLIMB OUT OF BED AT VARIOUS POINTS. WOULD NOT WEAR BIPAP FOR ANY LENGTH OF TIME. NOTIFIED KNOCKER OFF. RECEIVED ORDER FOR HALDOL 2.5MG IV WHICH ALLOWED PATIENT TO REST FOR A FEW HOURS. ADINISTERED BED BATH WHILE PATIENT WAS CALM. NOTED EXCORIATION THROUGHOUT INGUIAL AND NICKI REGIONS. SHE HAD FOOD TRAPPED UNDER THE FOLDS OF HER SKIN. IPON AWAKENING SHE CONTIUES TO BE DISORGNIZED AND HALLUCINATING. SPEAKING TO SOEBODY THAT IS NOT IDENTIFIABLE AND REACHING FOR OBJECTS THAT SHE THINKS ARE IN THE AIR. DR COLIN NOTIFIED BY KNOCKER OFF AFTER THIS NURSE CALLED REGARDING PATIENT LABS AND CURRENT BEHAVIORS. NO ORDERS OTHER THAN TO ATTEMPT BIPAP AGAIN NOTED. WILL CONTINUE TO MONITOR FOR CHANGES IN STATUS.
[2021-08-05 08:43] VITALS: BP 95/63
--- NOTE | 2021-08-05 09:22 | NUR ---
WOUND CARE F/U: THE INNER THIGH AREA WAS ASSESSED TODAY. THE AREA HAS SIGNIFICANT HEALING IN TWO DAYS. THE BUTTOCKS WAS NOT ASSESSED TODAY DUE TO THE PATIENTS CONDITION. RECCOMMENDATIONS; -ADD A LOW AIR LOSS BED PUMP. DISCUSSED WITH RN.
[2021-08-05 12:34] VITALS: BP 122/94
--- NOTE | 2021-08-05 16:24 | NUR ---
CHART REVIEWED AND DISCUSSED WITH CARE TEAM. PT FROM [facility]. WILL RETURN ONCE MEDICALLY STABLE TO DC. HAVE NOT AT THIS TIME RECEIVED CONFIRMATION FROM [facility]. SHOULD PT DC OVER THE WEEKEND PLEASE PHONE REPORT TO [phone] AND FAX ORDERS TO [phone]. THEY WILL ARRANGE TRANSPORT FOR PT BACK TO [facility].
[2021-08-05 17:36] VITALS: BP 134/43
--- NOTE | 2021-08-05 18:31 | NUR ---
ASSUMED PATIENT CARE THIS AM. PATIENT HAD SEVERAL EVENTS WHERE SHE WOULD PULL OFF HER MONITOR LEADS, PULL ON HER HOOD, PULL ON HER IV LINE. PATIENT WAS PLACED ON HER PERSONNAL BIPAP THIS EVENING BY RESPIRATORY, RESPIRATORY STATED THEY DID NOT UNDERSTAND THIS SPECIFIC MODEL. FAMILY STOPPED BY AND ASSISTED WITH THE SETUP OF THE MACHINE. NO BM TODAY.
[2021-08-05 19:24] VITALS: BP 122/57
--- NOTE | 2021-08-06 04:15 | NUR ---
RECEIEVED PATIENT AT 1900H.ASSESSMENT DONE CHARTED.WEARS HER HOME BIPAP AT [facility].PATIENT GETS AGITATED AND KEEPS ON REMOVING HER BIPAP.MEDS GIVEN PER AUG.ALL NEEDS ATTENDED.TO CONTINOUSLY MONITOR.
[2021-08-06 06:36] VITALS: BP 151/57
[2021-08-06 08:08] LABS: HEMATOCRIT 27.8 % (37.0-47.0); MCH 29.2 pg (26.0-34.0); MCHC 32.3 g/dL (28.0-37.0); MCV 90.3 fL (80.0-100.0); RBC 3.08 mil/uL (4.20-5.00); RDW 18.4 % (10.5-14.5); WBC 6.3 thou/uL (4.0-11.0)
[2021-08-06 08:21] LABS: CALCIUM 8.6 mg/dL (8.5-10.1); CREATININE 3.4 mg/dL (0.6-1.0); MAGNESIUM 1.9 mg/dL (1.8-2.4)
[2021-08-06 08:36] LABS: URINE BILIRUBIN NEGATIVE (Negative); URINE BLOOD 2+ (Negative); URINE CLARITY CLEAR; URINE COLOR YELLOW; URINE GLUCOSE-RANDOM* NEGATIVE (Negative); URINE KETONES NEGATIVE (Negative); URINE LEUKOCYTES 2+ (Negative); URINE NITRITE NEGATIVE (Negative); URINE PROTEIN (DIPSTICK) 1+ (Negative); URINE SPECIFIC GRAVITY 1.015 (1.005-1.035); URINE UROBILINOGEN 0.2 E.U./dl (0.2-1.0)
[2021-08-06 08:49] LABS: BACTERIA 1-9 Few /HPF (None Seen); CASTS None Seen /LPF (None Seen); SQUAMOUS None Seen /LPF (0-3); URINE RBC 3-10 Few /HPF (NONE SEEN); URINE WBC 1-5 Rare /HPF (NONE SEEN); YEAST Present (None Seen)
[2021-08-06 08:50] LABS: AMORPHOUS URATES Few /LPF (None Seen)
[2021-08-06 09:00] VITALS: BP 150/83
--- NOTE | 2021-08-06 10:31 | NUR ---
ASSUMED PT CARE THIS AM. PT IS ALERT & ORIENTED X2,3 BUT CONFUSED AT TIMES. PER NIGHT NURSE PT WAS AGITATED LAST NIGHT. PT HAS IB SITE ON RFA RUNNING NS @100ML/HR. PT IS ON TELE MONITOR. PT IS ACCUCHECK ACHS. GIVEN SCHEDULED MEDICATIONS WHOLE WITHOUT DIFFICULTIES AND INFUSED SCHEDULED ANTIBIOTICS THIS AM. PT HAS 4L NC O2 DURING DAY AND USES BIPAP AT NIGHT. PT HAS HOOD CATH IN PLACE. ENCOURAGE PT TO EAT BREAKFAST BUT HAS POOR APPETITE. PT IS ON THE BED SLEEPING, BED ON THE LOWEST POSITION, SIDE RAILS UP, CALL LIGHT WITHIN REACH. WILL FOLLOW POC.
[2021-08-06 12:19] VITALS: BP 174/58
[2021-08-06 17:26] VITALS: BP 139/48
[2021-08-06 20:00] VITALS: BP 139/89
[2021-08-07] VITALS: BP 185/71
[2021-08-07 03:05] LABS: HEMATOCRIT 21.8 % (37.0-47.0); HEMOGLOBIN 7.1 gm/dL (12.0-15.0); MCH 29.3 pg (26.0-34.0); MCHC 32.3 g/dL (28.0-37.0); MCV 90.7 fL (80.0-100.0); RBC 2.41 mil/uL (4.20-5.00); RDW 17.9 % (10.5-14.5)
[2021-08-07 03:13] LABS: CALCIUM 7.9 mg/dL (8.5-10.1); CREATININE 3.2 mg/dL (0.6-1.0); MAGNESIUM 1.7 mg/dL (1.8-2.4); POTASSIUM 5.1 mmol/L (3.5-5.1)
[2021-08-07 04:48] VITALS: BP 130/83
--- NOTE | 2021-08-07 06:09 | NUR ---
PROGRESS PT A/O X4 VERY ANXIOUS AND NOT TOLERATING CPAP AT START OF SHIFT, AND 2 MG HALDOL GIVEN IVP WITH EFFECT PT STOPPED SHAKING AND WENT TO SLEEP AND TOLERATED CPAP. ACCUCHECKS AND SSI ORDERED, IF'S INFUSING INTO RF PER ORDERED. PT DENIES PAIN. HOOD IN PLACE DRAINING LARGE AMOUNT OF URINE. AMMONIUM LOTION APPLIED TO BLE'S AND BARRIER CREAM AND LOTION APPLIED SKIN DRY AND LARGE FLAKES SHEDDING OFF. PT REFUSING TURNS AT START OF SHIFT D/T ANXIETY THEN SLEPT REMAINDER OF SHIFT WITH CPAP IN PLACE. CONTIUE TO MONITOR.
[2021-08-07 08:00] VITALS: BP 180/64
[2021-08-07 10:44] LABS: HEMATOCRIT 24.2 % (37.0-47.0); HEMOGLOBIN 7.8 gm/dL (12.0-15.0); MCH 29.2 pg (26.0-34.0); MCHC 32.4 g/dL (28.0-37.0); MCV 90.2 fL (80.0-100.0); RBC 2.68 mil/uL (4.20-5.00); RDW 18.5 % (10.5-14.5); WBC 6.2 thou/uL (4.0-11.0)
[2021-08-07 12:30] VITALS: BP 166/64; BP 180/64
[2021-08-07 16:00] VITALS: BP 119/73
--- NOTE | 2021-08-07 17:18 | NUR ---
Pt is A&0x4, VS stable and afebrile. BP was elevated in AM (180/64); scheduled BP meds given and BP at 1700 was 119/73. No complaints of pain. Pt's arms are at times jerky. said to hold halodol and to assess if it worsens or gets better to assess next course of action. Wound care was done. Pt has been resting in bed. No current concerns. Continue to monitor.
[2021-08-07 19:29] VITALS: BP 166/51
[2021-08-08 03:27] VITALS: BP 157/47
--- NOTE | 2021-08-08 07:28 | NUR ---
PT WITH HOOD INTACT AND IV FLUIDS INFUSING, VSS, NO C/O PAIN, REPOSITONED NEEDEDAND TOOK OFF CPAP AFTER 2AM AND PLACED BACK ON NC AND SHE THEN SET UP AND WATCHED TV REST OF THE MORNING. WILL CON'T TO MONITOR PER PPOC.
[2021-08-08 08:31] VITALS: BP 146/59
[2021-08-08 10:57] LABS: HEMATOCRIT 23.5 % (37.0-47.0); HEMOGLOBIN 7.5 gm/dL (12.0-15.0); MCH 28.9 pg (26.0-34.0); MCHC 31.8 g/dL (28.0-37.0); MCV 90.9 fL (80.0-100.0); RBC 2.58 mil/uL (4.20-5.00); RDW 18.5 % (10.5-14.5); WBC 6.3 thou/uL (4.0-11.0)
[2021-08-08 11:19] LABS: CREATININE 2.8 mg/dL (0.6-1.0); MAGNESIUM 1.6 mg/dL (1.8-2.4); POTASSIUM 5.2 mmol/L (3.5-5.1); TOTAL BILIRUBIN 0.2 mg/dL (0.2-1.0); TOTAL PROTEIN 5.8 g/dL (6.4-8.2)
--- NOTE | 2021-08-08 11:24 | NUR ---
WOUND CARE F/U: THE LEFT INNER THIGH CONTINUES TO IMPROVE. THE PATIENTS HOOD CATHETER HAS CREATED A MECHANICAL PRESSURE INJURY. RECOMMENDATIONS: -PROTECT THE SKIN FROM THE PLASTIC FOLLEY CATH CONNECTIONS WITH FOAM DRESSINGS AND ENSURE CATHETER IS NOT IN CONTACT WITH THE SKIN. DISCUSSED WITH RN.
[2021-08-08 12:18] VITALS: BP 151/43
[2021-08-08 16:00] VITALS: BP 149/50
--- NOTE | 2021-08-08 16:34 | NUR ---
CHART REVIEWED AND DISCUSSED WITH CARE TEAM. CM SPOKE TO PTS DAUGHTER CLARITZA VIA PHONE. GOAL FOR PT IS TO CONTINUE TO RETURN TO [facility] ONCE MEDICALLY STABLE TO DC. WAITING FOR PT RENAL AND COG FUNC TO IMPROVE. AWAITING PSYCH CONSULT FOR FURTHER DC PLANNING. ASKED PTS DAUGHTER IF HAD ANY FURTHER QUESTIONS. DAUGHTER REPORTED SHE HAD ALOT OF QUESTIONS THIS AM AND REQUESTED A MEETING TO MEET WITH PHYSICIANS AND FAMILY FOR CARIFICATION OF PTS NEEDS HOWEVER, AFTER SPEAKING WITH PHYSICIANS HE WENT OVER EVERYTHING AND EXPLAINED ALOT THEREFORE SHE NO LONGER REQUEST THE MTG. DAUGHTER INDICATED SHE MAY HAVE A FACILITY HER DAUGHTER RECOMMENDS ONCE MEDICALLY STABLE TO DC INSTEAD OF [facility] BUT CANT REMEMBER THE NAME. INFORMED DAUGHTER TO NOTIFY CM AND WILL SEND REFERRAL. NO FURTHER CM NEEDS AT THIS TIME. CM WILL CONTINUE TO FOLLOW FOR DC PLANNING.
--- NOTE | 2021-08-08 17:09 | NUR ---
Pt is A&0x4, VS stable and afebrile. Pt's daughter called and stated that pt reported having hallucinations in AM. Pt has also been having jerkiness in arms. Neurology and Psychiatry consults were called in. Wound care was called to assess open wound on left inner thigh and they said to continue wound care as ordered. Pt's family provided number to call if CPAP machine doesn't work overnight. AT 1645 pt reported that her leg feels tight; upon assessment right leg appears larger than left. notified and US of lower bilateral legs ordered to r/o DVT. Continue to monitor.
[2021-08-08 20:30] VITALS: BP 151/53
[2021-08-09 03:26] VITALS: BP 139/55
[2021-08-09 05:17] LABS: HEMOGLOBIN 6.9 gm/dL (12.0-15.0); MCH 29.5 pg (26.0-34.0)
[2021-08-09 05:19] LABS: HEMATOCRIT 21.5 % (37.0-47.0); MCHC 32.1 g/dL (28.0-37.0); MCV 91.9 fL (80.0-100.0); RBC 2.34 mil/uL (4.20-5.00); RDW 18.3 % (10.5-14.5); WBC 5.2 thou/uL (4.0-11.0)
[2021-08-09 05:37] LABS: CALCIUM 7.6 mg/dL (8.5-10.1); CREATININE 2.7 mg/dL (0.6-1.0); MAGNESIUM 1.7 mg/dL (1.8-2.4); POTASSIUM 4.9 mmol/L (3.5-5.1)
--- NOTE | 2021-08-09 06:08 | NUR ---
PATIENT AAOX2 AND COOPERATIVE TONIGHT. CONTINUES TO EXHIBIT SOME CONFUSION AND SHORT TERM MEMORY ISSUES. PATIENT HAS YET TO HAVE A BM TO RECORD OCCULT SAMPLE. SHE HAS BEEN ABLE TO WEAR HER CPAP MASK MOST OF THE NIGHT. PATIENT HGN 6.9 THIS AM. NOTIFIED PROVIDER DIAL LATHE OPERATOR. CHART WILL BE REVIEWED DUE TO PATIENT HX TO DETERMINE IF ANY NEW ORDERS WILL BE TRANSCRIBED.
[2021-08-09 08:05] LABS: HEMATOCRIT 23.3 % (37.0-47.0); HEMOGLOBIN 7.4 gm/dL (12.0-15.0); MCH 29.3 pg (26.0-34.0); MCHC 31.7 g/dL (28.0-37.0); MCV 92.5 fL (80.0-100.0); RBC 2.52 mil/uL (4.20-5.00); RDW 18.6 % (10.5-14.5); WBC 5.5 thou/uL (4.0-11.0)
[2021-08-09 09:00] VITALS: BP 152/65
[2021-08-09 11:30] VITALS: BP 174/45
[2021-08-09 16:38] VITALS: BP 149/52
[2021-08-09 19:40] VITALS: BP 152/48
--- NOTE | 2021-08-09 19:46 | NUR ---
Pt has been A&0x4, VS stable and afebrile. Fluids DC'd d/t possibility of fluid overload; good urine output today (1000ml). Pt has been reporting pain on left bottom/inner thigh r/t wound; pt has been turned frequently and barrier cream has been applied to wound. Pt worked with PT and was able to sit at edge of bed for a few minutes. Continue to monitor.
--- NOTE | 2021-08-09 19:49 | NUR ---
IMPORTANT: Pt's daughter called unit and stated that they want the pt's to be added to a "do not allow visitations" list. Daughter stated that they had been considering this for a couple of days and have now decided to follow through with the plan and that these were the pt's wishes. When I spoke with the pt she stated that she would give him one more chance and that "if he misbehaves again then he can't come visit". Pt was reassured that if she changes her mind she just needs to let us know and we will do what makes her feel safe and comfortable. Pt stated that her has been adding to her anxiety. third shift lieutenant was made aware during shift report.
[2021-08-10 03:14] VITALS: BP 164/44
[2021-08-10 03:53] LABS: HEMOGLOBIN 6.9 gm/dL (12.0-15.0)
[2021-08-10 03:55] LABS: HEMATOCRIT 21.5 % (37.0-47.0); MCH 29.3 pg (26.0-34.0); MCHC 32.1 g/dL (28.0-37.0); MCV 91.4 fL (80.0-100.0); RBC 2.36 mil/uL (4.20-5.00); RDW 17.8 % (10.5-14.5)
--- NOTE | 2021-08-10 04:39 | NUR ---
PATIENT IS AAOX2 RESTING IN HER BED. HER WAS AT BEDSIDE AT THE BEGINNING OF THE SHIFT. PATIENT APPEARS LETHARGIC THIS EVENING BUT HAS NOT SLEPT WELL THE PREVIOUS COUPLE OF NIGHTS. DURING THIS SHIFT THE PATIENT HAS STARTED TO REMOVE HER CPAP MASK MULTIPLE TIMES. SHE HAS COMPLAINED OF A HEADACHE AND STATES THAT IS WHY SHE DOESNT WANT TO WEAR THE MASK. PATIENT HAS BEEN AGITATED SOMEWHAT AGAIN TONIGHT. AROUND 0130 SHE CALLED HER DAUGHTER IN THE CELLPHONE AND STATED THAT SHE WANTED FOR HER TO COME PICK HER UP. THIS NURSE SPOKE WITH THE DAUGHTER WHO WAS QUESTINING WHY SHE WAS BEING CALLED THAT HER MOTHER SHOULD HAVE ON HER CPAP. EXPLAINED TO DAUGHTER THAT PATIENT HAS REFUSED TO WEAR HER MASK AND WAS PLACED BACK ON HER 3L NC UNTIL PATIENT WANTED TO PUT THE MASK BACK ON. ALSO INFORMED HER THAT THE PATIENT HAD BEEN MEDICATED FOR HEADACHE AND THAT IT WAS ALMOST TIME FOR ANOTHER DOSE. DAUGHTER STATED THAT SHE UNDERSTOOD AND AT THAT TIME PATIENT STATED THAT SHE WOULD PUT THE MASK BACK ON. EVEN WITH THE MASK ON PATIENT 02 SATURATION HOVER AROUND 90-92%. WILL CONTINUE TO MONITOR FOR CHANGES IN PATIENT STATUS.
[2021-08-10 05:07] LABS: CALCIUM 7.7 mg/dL (8.5-10.1); CREATININE 2.7 mg/dL (0.6-1.0); MAGNESIUM 1.8 mg/dL (1.8-2.4)
[2021-08-10 08:17] VITALS: BP 160/49
--- NOTE | 2021-08-10 10:45 | NUR ---
WOUND CARE F/U; THE PATIENT WAS MORE COMPLIATNT AND HELPFUL TODAY. THE LEFT INNER THIGH WOUND LOOKS BETTER TODAY. THE BILATERAL BUTTOCKS LOOK BETTER APROX QUARTER SIZE OR 2.5 CM X 2.5 X 0.1 RELATED TO FRICTION SHEARING. NO ODOR. RECOMMENDATIONS; CONTINUE CURRENT ORDERS.
[2021-08-10 11:36] VITALS: BP 150/46
--- NOTE | 2021-08-10 15:16 | NUR ---
CHART REVIEWED AND DISCUSSED WITH CARE TEAM. PLAN FOR DISCHARGE PT WILL RETURN TO [facility] ONCE MEDICALLY STABLE. CM FAXED CLINICAL UPDATES THIS DAY. LIASON INFORMED CM THEY HAVE A BED AVAILABLE AT THIS TIME. NO FURTHER CM INTERVENTIONS INDICATED AT THIS TIME. CM FOLLOWING FOR DC PLANNING.
[2021-08-10 15:42] VITALS: BP 144/60; BP 148/47
[2021-08-10 15:58] VITALS: BP 138/46
[2021-08-10 20:12] VITALS: BP 162/66
[2021-08-11 03:49] LABS: HEMATOCRIT 25.2 % (37.0-47.0); HEMOGLOBIN 8.2 gm/dL (12.0-15.0); MCH 29.7 pg (26.0-34.0); MCHC 32.7 g/dL (28.0-37.0); MCV 90.9 fL (80.0-100.0); RBC 2.77 mil/uL (4.20-5.00); RDW 17.4 % (10.5-14.5); WBC 5.9 thou/uL (4.0-11.0)
[2021-08-11 04:30] VITALS: BP 170/55
[2021-08-11 04:59] LABS: CALCIUM 8.5 mg/dL (8.5-10.1); CREATININE 2.5 mg/dL (0.6-1.0); POTASSIUM 5.1 mmol/L (3.5-5.1)
--- NOTE | 2021-08-11 05:39 | NUR ---
PATIENT RESTINGIN HER ROOM. SHE IS AAOX2 AND SOMEWHAT COOPERATIVE. SHE HAS TO BE REMINDED TO KEEP HER OXYGEN AND MASK ON A FEW TIMES THIS SHIFT. SHE CONTINUES TO HAVE SOME MILD HALLUCINATINS WHEN SHE AWAKENS FROM SLEEP. SHE DOES APPEAR TO BE LETHARGIC. HS BLOOD SUFAR WAS 74. ADMINISTERED D50 IV. GLUCOSE INCREASED TO 102. PATIENT HAS NT COMPLAINED OF ANY PAIN TO HER THIGH OR BUTTOCK TONIGHT. NO S/S OF DISTRESS NOTED. WILL CONTINUE TO MONITOR FOR CHANGES IN PATIENT STATUS.
[2021-08-11 07:35] VITALS: BP 148/67
[2021-08-11 11:40] VITALS: BP 149/53
[2021-08-11] MEDS ORDERED: NIFEDIPINE ER30 M1 PO (12:09)
[2021-08-11] MEDS ORDERED: SEROQUEL 25 MG25 M1 PO (12:10)
[2021-08-11] MEDS ORDERED: LASIX 40 MG TAB40 M1 PO (12:12)
[2021-08-11] MEDS ORDERED: LANTUS SUBQ (12:13)
[2021-08-11] MEDS ORDERED: LEVEMIR100 UNIT/2 SUBQ (13:30)
--- NOTE | 2021-08-11 13:45 | NUR ---
PT MEDICALLY STABLE TO DC THIS DAY. CM FAXED DC ORDERS AND SUMMARY TO [facility] AND CONFIRMED BED AVAILABILITY WITH [facility] LIASON. CHART COPIED. PT AND NURSING AWARE. CM CALLED AND SPOKE TO PTS DAUGHTER THIS DAY AT 1345 VIA PHONE. PT WILL TRANSFER TO [facility] VIA STRETCHER. NO FURTHER CM INTERVENTIONS INDICATED AT THIS TIME.
[2021-08-11 15:50] VITALS: BP 165/45
--- NOTE | 2021-08-11 17:51 | NUR ---
PATIENT DISCHARGED IN STABLE CONDITION. IV REMOVED, PERSONAL BELONGINGS GATHERED BY FAMILY, SENT WITH PATIENT TO FACILITY. [facility] ESCORTED PATIENT TO FACILITY.
== END 2021-08-11 17:56 | DRG 637 ==
LOC: ER 17:10 → ICU 19:45 → EROBS 19:45 → ICU 22:20 → 2N 08-04 15:54
PROVIDERS: Emergency Medicine; Internal Medicine; Internal Medicine Nephrology; Nurse Practitioner; Nurse Practitioner Family; ADMIT Hospitalist; ATTEND Hospitalist
DX: E11.00 Type 2 diabetes mellitus with hyperosmolarity without nonketotic hyperglycemic-hyperosmolar coma (NKHHC) (principal); J96.21 Acute and chronic respiratory failure with hypoxia; J18.9 Pneumonia, unspecified organism; J96.22 Acute and chronic respiratory failure with hypercapnia; N17.0 Acute kidney failure with tubular necrosis; G93.41 Metabolic encephalopathy; N39.0 Urinary tract infection, site not specified; I50.42 Chronic combined systolic (congestive) and diastolic (congestive) heart failure; J44.1 Chronic obstructive pulmonary disease with (acute) exacerbation; Z68.43 Body mass index [BMI] 50.0-59.9, adult; I13.0 Hypertensive heart and chronic kidney disease with heart failure and stage 1 through stage 4 chronic kidney disease, or unspecified chronic kidney disease; J44.0 Chronic obstructive pulmonary disease with (acute) lower respiratory infection; E11.65 Type 2 diabetes mellitus with hyperglycemia; E11.42 Type 2 diabetes mellitus with diabetic polyneuropathy; E78.5 Hyperlipidemia, unspecified; N18.30 Chronic kidney disease, stage 3 unspecified; F32.9 Major depressive disorder, single episode, unspecified; I48.0 Paroxysmal atrial fibrillation; E66.01 Morbid (severe) obesity due to excess calories; R25.1 Tremor, unspecified; E11.51 Type 2 diabetes mellitus with diabetic peripheral angiopathy without gangrene; G47.00 Insomnia, unspecified; E87.5 Hyperkalemia; I27.20 Pulmonary hypertension, unspecified; G47.33 Obstructive sleep apnea (adult) (pediatric); D63.8 Anemia in other chronic diseases classified elsewhere; R53.81 Other malaise; E87.6 Hypokalemia; R41.0 Disorientation, unspecified; B96.1 Klebsiella pneumoniae [K. pneumoniae] as the cause of diseases classified elsewhere; E86.1 Hypovolemia; Z79.01 Long term (current) use of anticoagulants; Z90.710 Acquired absence of both cervix and uterus; Z91.14 Patient's other noncompliance with medication regimen; Z88.8 Allergy status to other drugs, medicaments and biological substances
CPT/HCPCS: 10078; 10081; 10203; 10797

== ENCOUNTER 2021-08-11 20:21 | Inpatient (IN) | payer OTHER ==
[~2021-08-11] VITALS: Ht 157.5 cm; Wt 142.0 kg
--- NOTE | ~2021-08-11 | EMS ---
[address] [address] EMS Patient Care Report Name: CALEB DOVE Room #: 358-P ADM IN M.R.#: [id number] Admission: 08/12/21 Attend Phys: Shawn Najera Discharge: Date of : 52 Report #: [id number] THIS REPORT FOR: //name// Report Transmitted: 08/15/2021 13:06 EMS Care Summary [place], [place]/[facility] Incident [id number] @ 08/11/2021 19:57 Incident Location [address] Patient CALEB DOVE Female, 71 Years 1950 Patient Address [facility] [address] [place] [address] Patient History Other,Congestive Heart Failure (CHF),Chronic Obstructive Pulmonary Disease (COPD),Morbid Obesity,Pneumonia,Depression,Gout,Hypokalemia,Type 2 Diabetes,Novel Coronavirus (COVID-19), Patient Allergies Lisinopril, Patient Medications Torsemide, Senna, Insulin, Metoprolol, Hydrocodone, Amlodipine, Acetaminophen, Prednisone, Colace, Albuterol, Eliquis, Glipizide, Hydralazine, Amiodarone, Tradjenta, Chief Complaint Respiratory Distress Disposition Transported No Lights/[place] Dis[place] Reason Unconscious/Fainting Transported To [address] [address] EMS Patient Care Report Name: CALEB DOVE Room #: 358-P ADM IN M.R.#: [id number] Admission: 08/12/21 Attend Phys: Shawn Kumar Anne Discharge: Date of : 52 Report #: [id number] Narrative Dispatched to the scene of a 71 year old female with difficulty breathing. Upon arrival, met [facility] staff and they stated patient returned from the hospital earlier today for an unknown reason. Patient was then found in her room cyanotic and satting in the 30s. Patient was placed on 4 lpm of oxygen and they were only able to get her up to 47%. Patient's initial saturation for us was 88%. Patient was in and out of consciousness and had labored breathing. Patient was placed on a nonrebreather and oxygenation improved to 95%. Patient was moved to the cot, secured, and loaded into the ambulance. An ALS assessment was performed and vitals were monitored. Patient rested comfortably while en route to [facility]. Upon hospital arrival, patient was taken in on the cot, moved to the hospital bed, bed rails were raised, and patient care was transferred to the receiving nurse. Initial Vitals @20:09P: 65,SpO2: 83, @20:14P: 71,R: 26,BP: 143/78,Pain: 0/10,GCS: 14,CO: 4,SpO2: 95,Revised Trauma: 12, @20:08P: 67,R: 26,BP: 126/67,Pain: 0/10,GCS: 14,Glucose: 221,SpO2: 88,Revised Trauma: 12, Assessments @20:07MENTAL:Place Oriented,Person Oriented,Event Oriented,Time Oriented,Confused,SKIN:HEENT:Head/Face: No Abnormalities,Neck/Airway: No Abnormalities,LUNG SOUNDS:General: No Abnormalities,ABDOMEN:General: No Abnormalities,PELVIS//GI:Pelvis GUOther,EXTREMITIES:Capillary Refill: Right Upper: < 2 Sec,Right Leg: Edema,Left Leg: Edema,Left Arm: No Abnormalities,Right Arm: No Abnormalities,PULSE:Radial: 2+ Normal,NEURO:No Abnormalities,@20:39MENTAL:No Abnormalities,SKIN:No Abnormalities,HEENT:Head/Face: No Abnormalities,Eyes: No Abnormalities,Neck/Airway: No Abnormalities,LUNG SOUNDS:General: No Abnormalities,Left Upper: No Abnormalities,Right Upper: No Abnormalities,Left Lower: No Abnormalities,Right Lower: No Abnormalities,ABDOMEN:General: No Abnormalities,Left Upper: No Abnormalities,Right Upper: No Abnormalities,Left Lower: No Abnormalities,Right Lower: No Abnormalities,PELVIS//GI:No Abnormalities,EXTREMITIES:Left Leg: Edema,Right Leg: Edema,Left Arm: No Abnormalities,Right Arm: No Abnormalities,PULSE:NEURO:No Abnormalities, Impression Acute Respiratory Distress (Dyspnea) Procedures @20:07 ALS Assessment Response: UnchangedSucceeded @PTAOxygen FlowRate: 4 Device: Nasal Cannula (NC) Response: ImprovedSucceeded @20:10 Oxygen FlowRate: 15 Device: Non Re-breather Mask (NRB) Response: ImprovedSucceeded [address] [address] EMS Patient Care Report Name: CALEB DOVE Room #: 358-P ADM IN M.R.#: [id number] Admission: 08/12/21 Attend Phys: Shawn Najera Discharge: Date of : 52 Report #: [id number] Timeline SENIOR TEST ENGINEER,Oxygen FlowRate: 4 Device: Nasal Cannula (NC) Response: ImprovedSucceeded, 19:56,Call Received 19:56,Dispatch Notified 19:57,Dispatched 19:57,En Route 20:05,On Scene 20:07,At Patient 20:07,ALS Assessment,Response: UnchangedSucceeded, 20:08,BP: 126/67 M,PULSE: 67,RR: 26 R,SPO2: 88 Ox,ETCO2: ,B,PAIN: 0,GCS: 14, 20:09,BP: / M,PULSE: 65,RR: R,SPO2: 83 Ox,ETCO2: ,BG: ,PAIN: ,GCS: , 20:10,Oxygen FlowRate: 15 Device: Non Re-breather Mask (NRB) Response: ImprovedSucceeded, 20:14,BP: 143/78 M,PULSE: 71,RR: 26 R,SPO2: 95 Ox,ETCO2: ,BG: ,PAIN: 0,GCS: 14, 20:16,Depart Scene 20:16,At Destination 20:42,Call Closed Disclaimer v1.1 Copyright 2021 [employer] This EMS Care Summary contains data elements from the applicable legal record (which may be displayed differently). It is designed to provide pertinent information for the following purposes: continuity of care, clinical quality, and state data reporting. The complete legal record is available to ED staff and administrators of the receiving hospital in [employer]'s Patient Tracker. All data is provided "as is."
[2021-08-11 20:21] VITALS: BP 157/56
[~2021-08-11 20:21] MED LIST changes: +IPRAT-ALBUT 0.5-3 ML INH; +LANTUS SUBQ; +LASIX 40 MG TAB40 M1 PO; +NIFEDIPINE ER30 M1 PO; +NOVOLOG100 UNIT/1 SUBQ; +PREDNISONE 20 M20 MG PO; +PULMICORT0.25 MG/3 INH; +SEROQUEL 25 MG25 M1 PO
[2021-08-11 20:59] LABS: BE(vivo) -10.8 mmol/L (-2 to +3); HCO3 18.6 mmol/L (22.0-26.0); PCO2 59.5 mmHg (35.0-45.0); PO2 64.8 mmHg (80.0-100.0); sO2 84.5 % (92.0-98.0)
[2021-08-11 21:00] LABS: pH 7.113 (7.360-7.450)
[2021-08-11 21:54] LABS: ABSOLUTE NEUTROPHILS 6.3 thou/uL (1.4-8.2); BASOPHILS 0.6 % (0.0-2.0); CREATININE 2.6 mg/dL (0.6-1.0); EOSINOPHILS 0.3 % (0.0-3.0); HEMATOCRIT 26.8 % (37.0-47.0); HEMOGLOBIN 8.4 gm/dL (12.0-15.0); LYMPHOCYTES 5.4 % (24.0-44.0); MCH 29.2 pg (26.0-34.0); MCHC 31.4 g/dL (28.0-37.0); MONOCYTES 12.8 % (1.0-8.0); PLATELET COUNT 211 thou/uL (150-400); POLYS 80.9 % (36.0-66.0); RBC 2.88 mil/uL (4.20-5.00); RDW 17.9 % (10.5-14.5); WBC 7.8 thou/uL (4.0-11.0)
[2021-08-11 22:04] LABS: ALBUMIN 2.3 g/dL (3.4-5.0); TOTAL BILIRUBIN 0.2 mg/dL (0.2-1.0); TOTAL PROTEIN 6.6 g/dL (6.4-8.2)
[2021-08-12 02:42] LABS: BE(vivo) -8.1 mmol/L (-2 to +3); HCO3 19.9 mmol/L (22.0-26.0); PCO2 53.3 mmHg (35.0-45.0); PO2 64.2 mmHg (80.0-100.0)
[2021-08-12 03:58] VITALS: BP 178/73
[2021-08-12 06:15] VITALS: BP 148/63
[2021-08-12 07:09] LABS: HEMATOCRIT 28.3 % (37.0-47.0); HEMOGLOBIN 8.8 gm/dL (12.0-15.0); MCHC 31.3 g/dL (28.0-37.0); MCV 92.9 fL (80.0-100.0); RBC 3.05 mil/uL (4.20-5.00); RDW 17.4 % (10.5-14.5); WBC 5.5 thou/uL (4.0-11.0)
[2021-08-12 07:21] VITALS: BP 153/60
[2021-08-12 07:39] LABS: CALCIUM 9.1 mg/dL (8.5-10.1); CREATININE 2.6 mg/dL (0.6-1.0); POTASSIUM 5.8 mmol/L (3.5-5.1)
--- NOTE | 2021-08-12 08:08 | EKG ---
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: : 1950 Requested By: Shashank Crane Order Number: [id number] MD: Jovan Ortega Measurements Intervals Nallen Rate: 67 P: 4 NV: 270 QRS: -24 QRSD: 98 T: 65 QT: 419 QTc: 443 Interpretive Statements Sinus rhythm Prolonged NV interval Probable left atrial enlargement Borderline left axis deviation Low voltage, precordial leads Compared to ECG 08/02/2021 17:42:35 No significant change Electronically Signed On 08-12-2021 8:08:25 AGRICULTURAL RESEARCH TECHNICIAN by Jovan Ortega [email or web address] <ELECTRONICALLY SIGNED> By: Jovan Ortega MD, [facility] [phone] Jovan Ortega MD, [facility] /EPI
--- NOTE | 2021-08-12 08:44 | NUR ---
PT ARRIVED FROM ER VIA CART WITH O2 AT 3L PER NC. RN AND RT ACCOMPANIED PT TO FROM ER TO THE ROOM. RT PLACED BIPAP IN ROOM IN STANDBY MODE, PLACED O2 AT 3L VIA NC TO PT. PT DROWSY BUT ORIENTED TO NAME AND PLACE. ADMISSION ASSESSMENTS COMPLETED. PT NOTED TO HAVE JUST BEEN DISCHARGED ON 11/08/21. ORDERS IN PROGRESS.
[2021-08-12 11:38] VITALS: BP 149/61
[2021-08-12 15:17] LABS: URINE BILIRUBIN NEGATIVE (Negative); URINE BLOOD 2+ (Negative); URINE CLARITY CLOUDY; URINE COLOR YELLOW; URINE GLUCOSE-RANDOM* TRACE (Negative); URINE KETONES TRACE (Negative); URINE NITRITE-REFLEX NEGATIVE (Negative); URINE PROTEIN (DIPSTICK) 1+ (Negative); URINE UROBILINOGEN 0.2 E.U./dl (0.2-1.0)
[2021-08-12 15:20] LABS: URINE LEUKOCYTES-REFLEX 2+ (Negative)
[2021-08-12 15:32] LABS: SQUAMOUS 0-3 Few /LPF (0-3); URINE WBC-REFLEX 0-5 Rare /HPF (0-5)
[2021-08-12 15:33] LABS: BACTERIA-REFLEX 1-9 Few /HPF (None Seen); COARSE GRANULAR CASTS 0-3 Few /LPF (None Seen); CRYSTALS None Seen /LPF (None Seen); URINE RBC 3-10 Few /HPF (NONE SEEN)
[2021-08-12 15:34] LABS: YEAST-REFLEX Present (None Seen)
[2021-08-12 19:44] VITALS: BP 150/54
--- NOTE | 2021-08-12 19:45 | NUR ---
RN ASSUMED PT'S CARE AT 0700-1900PM, PT IS A&OX4, PT IS CONTNIUNG BIPAP ( O2 35%) UNTILL 1500PM, PT IS ON O2 4L/MIN/NC NOW, PT'S O2SAT STAY AT 90-94%, PT'S VS ARE STABLE, PT IS WAEK, SHE NEEDS HELP ADL AND CHANGE POSITION . PT'S STAYS AT PT'S BEDSIDE .
[2021-08-13 03:30] VITALS: BP 160/62
[2021-08-13 05:25] LABS: ALBUMIN 2.1 g/dL (3.4-5.0); CALCIUM 8.2 mg/dL (8.5-10.1); CREATININE 2.7 mg/dL (0.6-1.0); PHOSPHORUS 4.9 mg/dL (2.5-4.9); POTASSIUM 5.4 mmol/L (3.5-5.1)
--- NOTE | 2021-08-13 06:41 | NUR ---
ASSUMED PT CARE AT 1900. PT IS ALERT & ORIENTED X 2-3. CURRENTLY ON BIPAP 35% FIO2 AND O2 SATS 93-94%. APPLIED ANTIFUNGAL CREAM TO SKIN FOLDS AND INTERDRY. HOOD TO DD AND ADEQUATE OUTPUT NOTED. VSS AFEBRILE. PT HAD C/O OF PAIN ON LOWER EXTREMITY. ADMINISTERED PAIN MEDS AND NOTED RELIEF. ALL NEEDS ARE MET AT THIS TIME. CONTINUE WITH PLAN OF CARE.
[2021-08-13 06:52] VITALS: BP 171/71
[2021-08-13 11:44] VITALS: BP 150/45
[2021-08-13 15:27] VITALS: BP 145/47
--- NOTE | 2021-08-13 18:42 | NUR ---
RN ASSUMED PT'S CARE AT 0700, PT IS A&OX3( PERSON, TIME AND PLACE ), PT IS OFF BIPAP AT 0830AM , PT IS ON O2 2L/MIN/NC, PT'S O2 SAT STAY AT 91-93%, PT HAS SOB WITH ACTIVITIES, PT IS VERY WEAK AND SHE NEEDS HELP ADL , PT DENIES PAIN AND N/V AT DAY SHIFT.
[2021-08-13 19:06] VITALS: BP 154/54
[2021-08-14 05:15] VITALS: BP 152/57
[2021-08-14 06:12] LABS: HEMATOCRIT 24.1 % (37.0-47.0); HEMOGLOBIN 7.9 gm/dL (12.0-15.0); MCH 29.4 pg (26.0-34.0); MCHC 32.9 g/dL (28.0-37.0); MCV 89.4 fL (80.0-100.0); RBC 2.7 mil/uL (4.20-5.00); RDW 17.4 % (10.5-14.5); WBC 4.2 thou/uL (4.0-11.0)
[2021-08-14 06:34] LABS: ALBUMIN 2.3 g/dL (3.4-5.0); CALCIUM 8.8 mg/dL (8.5-10.1); CREATININE 2.6 mg/dL (0.6-1.0); PHOSPHORUS 4.5 mg/dL (2.5-4.9); POTASSIUM 4.5 mmol/L (3.5-5.1)
[2021-08-14 07:15] VITALS: BP 147/60
[2021-08-14 11:11] VITALS: BP 155/58
[2021-08-14 15:25] VITALS: BP 145/54
--- NOTE | 2021-08-14 19:47 | NUR ---
RN ASSUMED PT'S CARE AT 0700-1900PM, PT IS A&OX4, PT IS ON O2 2-3L/MIN/NC AT DAY SHIFT, PT'S VS ARE STABLE AT DAY SHIFT, BUT PT STILL HAS SOB WITH ACTIVITIES, PT NEEDS HELP ADL AND CHANGE POSITION .
[2021-08-14 20:01] VITALS: BP 151/58
[2021-08-15 02:35] VITALS: BP 166/62; BP 181/69
--- NOTE | 2021-08-15 04:10 | NUR ---
PT MAKING SLOW PROGRESS TOWARDS GOALS. ON O2 AT 3L PER NC WHILE AWAKE. ON BIPAP AT 35% FIO2 FOR SLEEP. PT DENIED ANY SOA WHILE AT REST. ABLE TO TURN IN BED FOR CARES WITH MINIMAL SOA.
[2021-08-15 05:54] LABS: HEMATOCRIT 23.2 % (37.0-47.0); HEMOGLOBIN 7.7 gm/dL (12.0-15.0); MCH 29.8 pg (26.0-34.0); MCHC 33.1 g/dL (28.0-37.0); MCV 90.1 fL (80.0-100.0); RBC 2.58 mil/uL (4.20-5.00); RDW 17.1 % (10.5-14.5); WBC 4.6 thou/uL (4.0-11.0)
[2021-08-15 06:18] LABS: ALBUMIN 2.2 g/dL (3.4-5.0); CALCIUM 8.4 mg/dL (8.5-10.1); CREATININE 2.5 mg/dL (0.6-1.0); PHOSPHORUS 3.8 mg/dL (2.5-4.9); POTASSIUM 4.7 mmol/L (3.5-5.1)
[2021-08-15 07:55] VITALS: BP 170/70
[2021-08-15 11:50] VITALS: BP 167/60
--- NOTE | 2021-08-15 12:25 | NUR ---
Pt readmitted from [facility] within 24hrs. The pt is a senior care care resident there and they are holding her bed. Clinical update faxed to admissions and confirmed reciept with [facility]. Pt's dtr Sfoi indicates plan for pt is to return to the custodial. She notes they had her on their bipap but spouse has her home trilogy machine in the car if needed at nc. Racquel to have their RT relook at her equipment and need for bipap/trilogy at nc. Case discussed with the care team and pt will likely be here a couple more days for diureses. Will follow and assist with her return to the nh at nc.
[2021-08-15 15:36] VITALS: BP 191/75
--- NOTE | 2021-08-15 16:57 | NUR ---
mortgage processing manager called as Security called the pmo manager to say the spouse of the patient was in security insisting that CM send referrals to other rehab/SNF facilities. I then spoke with daughter who is a DPOA Sofi Perez [phone] who will reach out to her Father and we continue plans discussed today with MARY of continuing medical care until stable and will then move back to [facility]. Notified MARY, Security and mortgage processing manager.
[2021-08-15 19:25] VITALS: BP 170/66
--- NOTE | 2021-08-15 19:41 | NUR ---
RN ASSUMED PT'S CARE AT 0700-1900PM, PT IS A&OX4, PT IS OFF BIPAP AND SHE IS O2 O2 2L/MIN/NC, PT'S VS AND O2SAT ARE STABLE , BUT PT STILL HAS SOB WITH ACTIVITIES, PT NEED HELP CHANGE HER POSITION .
--- NOTE | 2021-08-15 19:50 | NUR ---
PT RESTING IN BED. OBESE, LUNGS COARSE. O2 PER NC. HOOD TO CRISSY. REMAINS ON FR. BED ALARM ON.
[2021-08-16 03:39] VITALS: BP 174/72
[2021-08-16 05:39] LABS: HEMATOCRIT 25.2 % (37.0-47.0); HEMOGLOBIN 8.3 gm/dL (12.0-15.0); MCH 29.4 pg (26.0-34.0); MCHC 32.8 g/dL (28.0-37.0); MCV 89.7 fL (80.0-100.0); RBC 2.82 mil/uL (4.20-5.00); RDW 16.9 % (10.5-14.5); WBC 5.3 thou/uL (4.0-11.0)
[2021-08-16 05:47] LABS: ALBUMIN 2.3 g/dL (3.4-5.0); CALCIUM 8.6 mg/dL (8.5-10.1); CREATININE 2.4 mg/dL (0.6-1.0); PHOSPHORUS 3.5 mg/dL (2.5-4.9); POTASSIUM 4.4 mmol/L (3.5-5.1)
[2021-08-16 08:17] VITALS: BP 139/70
[2021-08-16 11:08] VITALS: BP 175/64
--- NOTE | 2021-08-16 12:26 | NUR ---
WOUND CARE F/U: THE PATIENTS LEFT INNER THIGHT WOUND IS HEALED. THE PANNOUS FUNGAL RASH IS HEALED. THE ISCHIAL TUBEROSITY WOUND REMAINS OPEN AND IS APPROXIMATELY QUARTER SIZE OR 2.5 X 2.5 X 0.1 CURRENTLY USING ZGUARD AND OFFLOADING. RECOMMENDATIONS: CONTINUE ALL CURRENT WOUND CARE ORDERS. DISCUSSED WITH GLENN.
--- NOTE | 2021-08-16 15:41 | NUR ---
MARY reviewed chart and spoke with nursing and attending physician. Pt is progressing towards goals for discharge. Discharge back to [facility] is anticipated for tomorrow. MARY faxed updated clinical info to [facility] for review. Notified Racquel and Jeferson in admissions of updates and discharge timeframe. Confirmed pt will be able to return tomorrow. MARY spoke with pt's dtr, Sofi to provide update. Sofi is agreeable with plan. RT at [facility] will look at pt's trilogy machine when she returns. MARY faxed bipap settings to [facility]. MARY is following to assist as needed with discharge planning.
[2021-08-16 16:36] VITALS: BP 143/86
--- NOTE | 2021-08-16 18:28 | NUR ---
ASSUMED PATIENT CARE AT 0700. A/O X4. TOLERATED ON 3L. VSS. SLOWLY TOWARDS POC GOALS.
[2021-08-16 19:20] VITALS: BP 160/41
[2021-08-17 03:45] VITALS: BP 176/53
[2021-08-17 05:17] LABS: HEMATOCRIT 27.4 % (37.0-47.0); HEMOGLOBIN 8.7 gm/dL (12.0-15.0); MCH 28.9 pg (26.0-34.0); MCHC 31.6 g/dL (28.0-37.0); MCV 91.3 fL (80.0-100.0); RBC 3.01 mil/uL (4.20-5.00)
[2021-08-17 05:35] VITALS: BP 180/64
[2021-08-17 06:25] VITALS: BP 157/65
[2021-08-17 06:26] LABS: CALCIUM 8.8 mg/dL (8.5-10.1); CREATININE 2.5 mg/dL (0.6-1.0); POTASSIUM 4.5 mmol/L (3.5-5.1)
--- NOTE | 2021-08-17 08:21 | NUR ---
PT MAKING PROGRESS TOWARD GOALS. ON O2 AT 2L PER NC OVERNIGHT. LUNGS CTA, DIMINISHED IN BOTH BASES. WORE BIPAP OVERNIGHT. DENIED ANY SOA WHILE AT REST.
[2021-08-17 11:07] VITALS: BP 186/70
--- NOTE | 2021-08-17 12:00 | NUR ---
DISCHARGE NOTE: MARY reviewed chart and spoke with nursing and attending physician. Pt is medically stable for discharge back to [facility] today. Pt does not have any skilled days available. MARY updated Racquel in admisisons at [facility], who confirms they are able to accept pt back today. Awaiting discharge orders at this time. Pt will need ambulance transportation. Chart copy ordered. MARY is following to finalize discharge.
[2021-08-17] MEDS ORDERED: DEMADEX20 MG PO (13:06)
[2021-08-17] MEDS ORDERED: NOVOLOG100 UNIT/M SUBQ (13:07)
[2021-08-17] MEDS ORDERED: LANTUS100 UNIT/M SUBQ (13:07)
[2021-08-17] MEDS ORDERED: PREDNISONE 10 M10 MG PO (13:08)
[2021-08-17] MEDS ORDERED: FLUCONAZOLE 10100 MG PO (13:19)
--- NOTE | 2021-08-17 16:20 | NUR ---
ASSUMED CARE OF PT AT 0700. PT ALERT AND ORIENTED, NO DISTRESS. 2L NC. STABLE FOR DISCHARGE. PT AGREEABLE. REPORT CALLED TO [facility]. NO EVENTS ON TELEMETRY.
== END 2021-08-17 17:30 | DRG 291 ==
LOC: ER 20:21 → 3W 08-12 00:24 → EROBS 08-12 00:24 → 3W 08-12 03:50
PROVIDERS: Emergency Medicine; Hospitalist; Nurse Practitioner Family; ADMIT Hospitalist; ATTEND Hospitalist
PROC: 5A09357 Assistance with Respiratory Ventilation, Less than 24 Consecutive Hours, Continuous Positive Airway Pressure (ICD-10-PCS; principal; 2021-08-14)
PROC: 5A09357 Assistance with Respiratory Ventilation, Less than 24 Consecutive Hours, Continuous Positive Airway Pressure (ICD-10-PCS; 2021-08-15)
PROC: 5A09357 Assistance with Respiratory Ventilation, Less than 24 Consecutive Hours, Continuous Positive Airway Pressure (ICD-10-PCS; 2021-08-16)
PROC: 5A09357 Assistance with Respiratory Ventilation, Less than 24 Consecutive Hours, Continuous Positive Airway Pressure (ICD-10-PCS; 2021-08-17)
DX: I50.33 Acute on chronic diastolic (congestive) heart failure (principal); J18.9 Pneumonia, unspecified organism; E11.00 Type 2 diabetes mellitus with hyperosmolarity without nonketotic hyperglycemic-hyperosmolar coma (NKHHC); J96.21 Acute and chronic respiratory failure with hypoxia; G92.9 Unspecified toxic encephalopathy; J44.1 Chronic obstructive pulmonary disease with (acute) exacerbation; N17.9 Acute kidney failure, unspecified; N39.0 Urinary tract infection, site not specified; Z68.43 Body mass index [BMI] 50.0-59.9, adult; J44.0 Chronic obstructive pulmonary disease with (acute) lower respiratory infection; I27.20 Pulmonary hypertension, unspecified; Z88.8 Allergy status to other drugs, medicaments and biological substances; I48.0 Paroxysmal atrial fibrillation; Z79.01 Long term (current) use of anticoagulants; E66.01 Morbid (severe) obesity due to excess calories; F32.9 Major depressive disorder, single episode, unspecified; F41.9 Anxiety disorder, unspecified; E11.42 Type 2 diabetes mellitus with diabetic polyneuropathy; B96.1 Klebsiella pneumoniae [K. pneumoniae] as the cause of diseases classified elsewhere; E87.5 Hyperkalemia
CPT/HCPCS: 10879